=== PATIENT | male | born 1950 | race Caucasian/White ===

== ENCOUNTER → 2017-01-18 | Outpatient (CLI) | payer OTHER ==
--- NOTE | 2017-01-18 12:37 | RADIOLOGY REPORT (SQ) ---
EXAM DESCRIPTION: VENOUS UNILATERAL LOWER COMPLETED DATE/TIME: 01/18/2017 12:30 pm REASON FOR STUDY: PAIN RLE R60.9 EDEMA, UNSPECIFIED COMPARISON: None. TECHNIQUE: Dynamic and static broussard scale and color images acquired of the right leg venous system. S elected spectral images acquired with additional compression and augmentation maneuvers. The contrala teral common femoral vein and saphenofemoral junction were also imaged. Images stored on PACS. LIMITATIONS: None. FINDINGS: COMMON FEMORAL: Normal phasicity, compression and augmentation. No visualized echogenic ma terial on broussard scale. No defects on color images. FEMORAL: Normal compression and augmentation. No visualized echogenic material on broussard scale. No defe cts on color images. POPLITEAL: Normal compression, augmentation. No visualized echogenic material on broussard scale. No defec ts on color images. CALF VESSELS: Normal compression, augmentation. No visualized echogenic material on broussard scale. No de fects on color images. GSV and SSV: Normal compression, augmentation. No visualized echogenic material on broussard scale. No def ects on color images. ANY DEEP VENOUS INSUFFICIENCY: Not evaluated. ANY EVIDENCE OF POPLITEAL CYST: No. OTHER: No other significant finding. CONTRALATERAL COMMON FEMORAL VEIN AND SAPHENOFEMORAL JUNCTION: Normal phasicity, compression and augmentation. No visualized echogenic material on broussard scale. No de fects on color images. IMPRESSION: NO EVIDENCE OF DVT OR SVT IN THE RIGHT LEG. TECHNICAL DOCUMENTATION: JOB ID: [id number] [employer]- All Rights Reserved
== END ==
LOC: SP 11:25
PROVIDERS: ATTEND Family Medicine
DX: M79.89 Other specified soft tissue disorders (principal); M79.604 Pain in right leg
CPT/HCPCS: 93971

== ENCOUNTER → 2017-02-05 | Outpatient (CLI) | payer OTHER ==
[2017-02-05 17:01] LABS: ANION GAP 15 (5-19); BLOOD UREA NITROGEN 35 mg/dL (7-20); CALCIUM 9.9 mg/dL (8.4-10.2); CARBON DIOXIDE 24 mmol/L (22-30); CHLORIDE 100 mmol/L (98-107); GLUCOSE 132 mg/dL (75-110); POTASSIUM 5.4 mmol/L (3.6-5.0); SODIUM 138.6 mmol/L (137-145)
== END ==
LOC: OD 15:51
PROVIDERS: ATTEND Physician Assistant
DX: E87.5 Hyperkalemia (principal)
CPT/HCPCS: 36415; 80048

== ENCOUNTER → 2018-12-03 | Outpatient (CLI) | payer OTHER, MEDICARE ==
--- NOTE | 2018-12-03 13:27 | RADIOLOGY REPORT (SQ) ---
EXAM DESCRIPTION: CHEST PA/LATERAL COMPLETED DATE/TIME: 12/03/2018 12:47 pm REASON FOR STUDY: LEUKOCYTOSIS COMPARISON: 04/26/2010 EXAM PARAMETERS: NUMBER OF VIEWS: two views TECHNIQUE: Digital Frontal and Lateral radiographic views of the chest acquired. RADIATION DOSE: NA LIMITATIONS: none FINDINGS: LUNGS AND PLEURA: No opacities, masses or pneumothorax. No pleural effusion. Unchanged mi ld elevation of the right hemidiaphragm. MEDIASTINUM AND HILAR STRUCTURES: No masses or contour abnormalities. HEART AND VASCULAR STRUCTURES: Heart normal size. No evidence for failure. Aortic atherosclerosis. BONES: No acute findings. HARDWARE: None in the chest. OTHER: No other significant finding. IMPRESSION: No focal consolidation or other evidence of acute cardiopulmonary process. TECHNICAL DOCUMENTATION: JOB ID: [id number] [employer]- All Rights Reserved Reading location - IP/workstation name: [email or web address]
== END ==
LOC: OD 12:34
PROVIDERS: ATTEND Family Medicine
DX: D72.829 Elevated white blood cell count, unspecified (principal)
CPT/HCPCS: 71046

== ENCOUNTER → 2018-12-11 | Outpatient (CLI) | payer MEDICARE, OTHER ==
--- NOTE | 2018-12-11 10:06 | RADIOLOGY REPORT (SQ) ---
EXAM DESCRIPTION: U/S ABDOMEN LIMITED W/O DOP COMPLETED DATE/TIME: 12/11/2018 7:48 am REASON FOR STUDY: OTHER CHRONIC PANCREATITIS (K86.1), ABN RESULTS OF LIVER FUNCTION STUDIES ( K86.1 OTHER CHRONIC PANCREATITIS R94.5 ABNORMAL RESULTS OF LIVER FUNCTION STUDIES COMPARISON: None. TECHNIQUE: Dynamic and static grayscale images acquired of the abdomen and recorded on PACS. Additio nal selected color Doppler and spectral images recorded. LIMITATIONS: None. FINDINGS: PANCREAS: Midline pancreas unremarkable LIVER: No masses. Echotexture normal. LIVER VASCULATURE: Normal directional flow of the main portal vein and hepatic veins. GALLBLADDER: Adenomyosis along the gallbladder wall. Gallbladder wall thickening along the fundus. Tiny shadowing stones are present. No gallbladder wall thickening or pericholecystic fluid. ULTRASOUND-DETECTED RHODES'S SIGN: Negative. INTRAHEPATIC DUCTS AND COMMON DUCT: CBD and intrahepatic ducts normal caliber. No filling defects. INFERIOR VENA CAVA: Normal flow. AORTA: No aneurysm. RIGHT KIDNEY: 9 x 7.5 cm mass right upper pole kidney worrisome for renal cell carcinoma. No right renal stones. No hydronephrosis PERITONEAL AND RIGHT PLEURAL SPACE: No ascites or effusions. OTHER: No other significant findings. IMPRESSION: Right renal mass 9 x 7.5 cm worrisome for renal cell carcinoma Gallbladder Adenomyosis and stones in the gallbladder, no gallbladder wall thickening or pericholecys tic fluid. TECHNICAL DOCUMENTATION: JOB ID: [id number] [employer]- All Rights Reserved Reading location - IP/workstation name: [email or web address]
--- NOTE | 2018-12-11 15:20 | RADIOLOGY REPORT (SQ) ---
EXAM DESCRIPTION: CT ABD/PELVIS WITH IV ONLY COMPLETED DATE/TIME: 12/11/2018 2:55 pm REASON FOR STUDY: N28.89 OTHER SPECIFIED DISORDERS OF KIDNEY AND URETER K86.1 OTHER CHRONIC PANCREA TITIS R94.5 ABNORMAL RESULTS OF LIVER FUNCTION STUDIES N28.89 OTHER SPECIFIED DISORDERS OF KIDNEY A ND URETER COMPARISON: Abdominal ultrasound 12/11/2018 Renal ultrasound 11/16/2015 TECHNIQUE: CT scan of the abdomen and pelvis performed using helical scanning technique with dynamic intravenous contrast injection. No oral contrast. Images reviewed with lung, soft tissue, and bone windows. Reconstructed coronal and sagittal MPR images reviewed. Delayed images for evaluation of the urinary system also acquired. All images stored on PACS. All CT scanners at this facility use dose modulation, iterative reconstruction, and/or weight based d osing when appropriate to reduce radiation dose to as low as reasonably achievable (ALARA). [facility]: Dose Right [facility]: CareDose [facility]: Dose Right [facility]: Teradose 4D [facility]: [place] CONTRAST TYPE AND DOSE: 100 mL of IV Omnipaque 350- low osmolar. RENAL FUNCTION: Creatinine 1.2 RADIATION DOSE: CT Rad equipment meets quality standard of care and radiation dose reduction techniq ues were employed. CTDIvol: 19.8 - 22.1 mGy. DLP: 2231 mGy-cm.. LIMITATIONS: None. FINDINGS: LOWER CHEST: No significant findings. No nodules or infiltrates. LIVER: Normal size. No masses. No dilated ducts. SPLEEN: Normal size. No focal lesions. PANCREAS: There is mild peripancreatic inflammation on axial images 29 through 38, findings are worri some for pancreatitis. Findings discussed with Dr. Drake. No pancreatic mass. No peripancreatic fl uid collection. There is air at the ampulla. Trace air in the gallbladder. Question prior sphincte rotomy. GALLBLADDER: Trace air in the gallbladder fundus. No radiopaque gallstones. No pericholecystic flui d. Common bile duct nondilated ADRENAL GLANDS: No significant masses or asymmetry. RIGHT KIDNEY AND URETER: 9 x 7 cm solid enhancing mass upper pole right kidney worrisome for renal ce ll neoplasm. No significant calcifications. No hydronephrosis or hydroureter. LEFT KIDNEY AND URETER: 3.7 cm solid mass left upper pole kidney worrisome for renal cell neoplasm. 4 cm solid mass, posterior midpole left kidney worrisome for renal cell neoplasm. 2 cm cyst left low er pole kidney. No significant calcifications. No hydronephrosis or hydroureter. AORTA AND VESSELS: No aneurysm. No dissection. Renal arteries, SMA, celiac without stenosis. RETROPERITONEUM: No retroperitoneal adenopathy, hemorrhage or masses. BOWEL AND PERITONEAL CAVITY: No masses or inflammatory changes. No free fluid or peritoneal masses. APPENDIX: Normal. PELVIS: No mass. No free fluid. Normal bladder. ABDOMINAL WALL: No masses. No hernias. BONES: No significant or acute findings. OTHER: No other significant finding. IMPRESSION: Acute uncomplicated pancreatitis Trace air in the biliary tree, question prior biliary intervention/ERCP. Otherwise, cholangitis is p ossible. Findings discussed with Dr. Drake. Bilateral multiple solid renal masses worrisome for renal cell carcinoma TECHNICAL DOCUMENTATION: JOB ID: [id number] Quality ID # [id number]: Final reports with documentation of one or more dose reduction techniques (e.g., Au tomated exposure control, adjustment of the mA and/or kV according to patient size, use of iterative reconstruction technique) 2010 [employer]- All Rights Reserved Reading location - IP/workstation name: CHAR FILTER OPERATOR [email or web address]
== END ==
LOC: RAD 06:42
PROVIDERS: ATTEND Family Medicine
DX: K85.10 Biliary acute pancreatitis without necrosis or infection (principal); N28.89 Other specified disorders of kidney and ureter; R94.5 Abnormal results of liver function studies
CPT/HCPCS: 74177; 76705

== ENCOUNTER 2019-06-25 02:42 | Inpatient (IN) | payer OTHER, MEDICARE ==
--- NOTE | 2019-06-25 03:01 | ER Document Report ---
ED Neuro Symptoms/Deficit - General Chief Complaint: S/S of Possible Stroke Stated Complaint: POSSIBLE STROKE Time Seen by Provider: 06/25/19 02:57 Primary Care Provider: JIN DRAKE MD [Primary Care Provider] - Follow up as needed Mode of Arrival: Ambulatory Information source: Patient Notes: 68-year-old man presents to the emergency department with a history of left arm tingling discoordination which was noted when he awoke at approximately 1 AM this morning. Last known well was approximately 10 PM last night 06/25/2019, when his last saw him. Patient states that he attempted to get up and lost his balance because of the arm symptoms, he fell onto his left knee. He now complains of a tingling in his left arm with questionable weakness. He denies leg weakness or tingling. He complains of left facial tingling and poor control of the left arm. TRAVEL OUTSIDE OF THE [place] IN LAST 30 DAYS: No - Related Data Allergies/Adverse Reactions: No Known Allergies Allergy (Unverified 06/25/19 03:30) Past Medical History - Social History Smoking Status: Unknown if Ever Smoked Family History: Reviewed & Not Pertinent Review of Systems - Review of Systems Notes: Constitutional: Negative for fever. HENT: Negative for sore throat. Eyes: Negative for visual changes. Cardiovascular: Negative for chest pain. Respiratory: Negative for shortness of breath. Gastrointestinal: Negative for abdominal pain, vomiting or diarrhea. Genitourinary: Negative for dysuria. Musculoskeletal: Negative for back pain. Skin: Negative for rash. Neurological: + Left arm tingling, + left facial tingling 10 point ROS negative except as marked above and in HPI. Physical Exam - Notes Notes: PHYSICAL EXAMINATION: Physical Exam: General: Well-nourished well-developed in no acute distress HEENT: NC/AT, pupils equal round and reactive to light, MM moist,nares clear, oropharynx clear, airway patent Neck: supple, no adenopathy, no masses. Good range of motion Lungs: clear, no wheezing, no rales no rhonchi CVS: Regular rate and rhythm no murmur gallop or rub Abdomen: Soft, active, nontender, no masses, no hepatosplenomegaly Ext: No edema, clubbing or cyanosis. Neuro: Alert and responsive, moving all 4 extremities on command, cranial nerves intact, no focal weakness, decreased sensation left upper extremity, discoordinated movement left arm, positive poor [id number] function involving the left arm. + Increased left nasolabial fold mild Skin: Intact no open lesions, no rash PSYCH: Normal mood, normal affect. Course - Re-evaluation Re-evalutation: 06/25/19 05:24 68-year-old man who presents with wake-up stroke symptoms, apparently last known well 10 PM, 06/25/2019. He is outside the window for TPA treatment. CTA of the head and neck are ordered, I have spoken with the neurology service at [facility] they have agreed to accept the patient in transfer after the study has been done. Patient states that he would like to go to [facility] in [place], apparently his daughter works at the [employer] there. Contacted the neurologist television journalist Dr. Stinson, he will reviewed the head CT and a CTA of the head and neck, will then make a decision as to if he can accept the patient in transfer. Initial blood pressure was elevated however, it has come down without intervention. Patient takes lisinopril 40 mg twice daily, carvedilol 12.5 mg tw ice daily. 06/25/19 05:50 Dr. Stinson neurology at [facility] has reviewed the CTA and notes there are no large vessel occlusions therefore the patient does not meet criteria for transfer. I will discussed his findings with the patient and will admit him to [facility] for further management. 06/25/19 06:12 Dr. Drake was contacted, states that he will admit the patient to the hospital. He is requesting that an MRI be ordered. - Laboratory Result Diagrams: 06/25/19 02:57 06/25/19 02:57 - Diagnostic Test Radiology reviewed: Image reviewed, Reports reviewed - Chest x-ray: Heart size normal, mild artheromatous changes in the thoracic aorta, no pneumothorax. CT head noncontrast: No intra-cranial hemorrhage, no prior CVA. - EKG Interpretation by Ks EKG shows normal: Sinus rhythm - Rate 69, LVH with IVCD, repolarization abnormality, no acute ST or T wave abnormalities. ED Alteplase Inc/Exc Criteria - Date/Time patient last known well: Date/Time: 06/24/2019 22:00 - Date/Time patient arrived in ED: _: 06/25/2019 02:38 - Inclusion Criteria: 1: Patient presented to ED within 3 hours of acute ischemic stroke symptom ons et? -: No - This is a wake-up stroke, outside the window for TPA 2: Did baseline CT exclude intracranial hemorrhage and/or other risk factors? 3: Is the age of the patient 18 years of age or greater? : If any of the above questions are answered "NO" then stop, patient is not a candidate for Alteplase, : If all of the above questions are answered "YES" then continue with Exclusion Criteria. - Exclusion Criteria: 1: Is there evidence of intracranial hemorrhage on baseline CT? 2: Is there suspicion of subarachnoid hemorrhage (even if CT negative)? 3: Is there a history of serious head trauma, recent previous stroke or IL within 3 months? 4: Does the patient have a clinical presentation consistent with IL or post-IL pericarditis? 5: Is there history of intracranial hemorrhage? 6: On repeated measurement is Systolic BP greater than 185mmHg or Diastolic BP greater that 110 mmHg and is aggressive treatment needed to reduce blood pressure to these limits (e.g. constant infusion of an anti-hypertensive)? 7: Did the patient awake with stroke symptoms? 8: Has the patient had a lumbar puncture or an arterial puncture at a non- compressile site within 7 days? 9: With in the last 14 days did the patient have surgery or major trauma? 10: Is the patient or less than 2 weeks? 11: Was there any active bleeding or acute trauma? 12: Does the patient have intracranial neoplasm, arteriovenous malformation or aneurysm? 13: Does the patient have abnormal glucose (less than 50 or greater than 400mg/dl)? Record glucose in Comment. 14: Patient has rapidly improving symptoms at the time Alteplase is to be Administered. 15: Does the patient have any risks for bleeding, including but not limited to: a.: Current use of Coumadin with PT greater than 15 seconds or INR greater than 1.7. b.: Current use of Pradaxa (Dabigatran). c.: Heparin administereed within the past 48 hours and PTT elevated. d.: Platelet count less than 100,000/mm. e.: Major surgery or serious trauma within 14 days. f.: Gastrointestinal or gynecological urinary bleeding within 14 days. g.: Myocardial Infarction (IL) within 3 months. : If the answer to any of the above questions is "YES" then stop, the patient is not a candidate for Alteplase. : If the answer to all of the above questions is "NO" then the patient may be eligible for the Administration of Alteplase. : If the patient is noted to have seizure activity at onset of Stroke symptoms; Consult Neurologist for further evaluation. - The patient is: -: Included and is eligible to receive Alteplase. *Initiate bed placement at higher level of care* Reviewed risks & benefits of thrombolytic therapy: I have reviewed the risks and benefits of thrombolytic therapy with the patient and/or his/her family. -: Excluded and not eligible to receive Alteplase for the above exclusions. -: Excluded and not eligible to receive Alteplase for other reasons (specify in comments): - Diagnosis of TIA: -: Patient presented with transient symptoms that are now resolved and no other neurologic findings are currently present. List symptoms in comments. -: Patient is NOT a candidate for tPA. -: ____(put name in comment) has been consulted for admission and continued evaluation of risk factor assessment. ED NIH Stroke Scale - NIH Stroke Scale When completed:: Before Alteplase *: 1. NIH scale should be completed with appropriate accompanying assessment tools. *: 2. The NIH should reflect what the patient is capable of doing and should not be coached by the clinician. 1a. Level of Consciousness: 0=Alert;keenly responsive -: 1=Drowsy -: 2=Obtunded -: 3=Coma/unresponsive or reflex to noxious stimuli. 1a. Responses: 0 1b. Orientation Questions: a. What month is it? -: b. How old are you? -: 0=Answers both questions correctly. -: 1=Answers one question correctly or patient is intubated or has orotracheal trauma. -: 2=Answers neither question correctly. 1b. Responses: 0 1c. Response to commands: a. Open and close eyes? -: b. Lab Tester and release hand? -: Credit is given despite weakness. Demonstration of task is permitted. Substitute command if hands cannot be used. -: 0=Performs both tasks correctly -: 1=Performs one task correctly -: 2=Performs neither task correctly 1c. Responses: 0 2. Gaze: Establish eye contact and instruct patient to "Follow my finger" -: 0=Normal -: 1=Partial gaze palsy. Gaze is abnormal in one or both eyes, but where forced deviation or total gaze paresis is not present. -: 2=Forced deviation or total gaze paresis. 2. Responses: 0 3. Visual Blackmon: Sees fingers in all four quadrants. -: 0=No visual loss. -: 1=Partial hemianopsia. -: 2=Complete hemianopsia. -: 3=Bilateral hemianopsia (including Cortical blindness) 3. Responses: 0 4. Facial Movement: Instruct patient to: -: a. Show me your teeth -: b. Raise your eyebrows -: c. Close your eyes -: d. Smile -: 0=Normal symmetrical movement -: 1=Minor paralysis (flattened nasolabial fold, asymmetry on smiling). -: 2=Partial paralysis (total or near total paralysis of lower face). -: 3=Complete paralysis of upper and lower face 4. Responses: 1 5. Motor functions (left arm): Alternate sides and extend each arm with palms down (90 degrees if sitting or 45 degrees for supine). -: 0=No drift;limb holds for full 10 seconds. -: 1=Drift; limb holds but drifts down before full 10 seconds, but does not hit bed. -: 2=Some effort against gravity; limb cannot get to or maintain position. -: 3=No effort against gravity; limb falls. -: 4=No movement. -: UN=Amputation, joint fusion, explain in comments. 5. Responses (left arm): 0 5. Motor Functions (right arm): Alternate sides and extend each arm with palms down (90 degrees if sitting or 45 degrees for supine). -: 0=No drift;limb holds for full 10 seconds. -: 1=Drift; limb holds but drifts down before full 10 seconds, but does not hit bed. -: 2=Some effort against gravity; limb cannot get to or maintain position. -: 3=No effort against gravity; limb falls. -: 4=No movement. -: UN=Amputation, joint fusion, explain in comments. 5. Responses (right arm): 0 6. Motor Functions (left leg): With patient lying supine, alternate sides and extend each leg (30 degrees always while supine). -: 0=No drift, leg holds position for full 5 seconds -: 1=Drift; leg falls before full 5 seconds but does not hit bed. -: 2=Some effort against gravity, leg falls to bed but some effort against gravity. -: 3=No effort against gravity, leg falls to bed immediately. -: 4=No movement. -: UN=Amputation, joint fusion; explain in comments. 6. Responses (left leg): 0 6. Motor Functions (right leg): With patient lying supine, alternate sides and extend each leg (30 degrees always while supine). -: 0=No drift, leg holds position for full 5 seconds -: 1=Drift; leg falls before full 5 seconds but does not hit bed. -: 2=Some effort against gravity, leg falls to bed but some effort against gravity. -: 3=No effort against gravity, leg falls to bed immediately. -: 4=No movement. -: UN=Amputation, joint fusion; explain in comments. 6. Responses (right leg): 0 7. Limb Ataxia: With eyes open instruct patient to: -: a. "Touch your finger to your nose". -: b. "Touch your heel to your vargas" -: 0=Absent -: 1=Present in one limb. -: 2=Present in two limbs. -: UN=Amputation or joint fusion; explain in comments. 7. Responses: 1 7. If ataxia present choose as appropriate: Left arm 8. Sensory: Test sensation using pinprick or noxious stimuli. Test as many body parts as possible. -: 0=Normal;no sensory loss -: 1=Mile to moderate sensory loss (patient feels pin prick but is less sharp on affected side). -: 2=Severe or total sensory loss. 8. Responses: 1 9. Best Language: Instruct patient to: -: a. "Describe what you see in this picture." -: b. "Name the items in this picture." -: c. "Read these sentences." -: 0=No aphasia, normal -: 1=Mild to moderate aphasia. -: 2=Severe aphasia -: 3=Mute, global aphasia, no usable speech or auditory comprehension. 9. Responses: 0 10. Articulation, Dysarthia: Instruct patient to: -: "Read these words" or "Repeat these words" -: 0=Normal -: 1=Mild to moderate; patient may slur some words but can be understood without difficulty. -: 2=Severe; patients speech so slurred as to be unintelligible in the absence of dysphasia. -: UN=Intubated or other physical barrier, explain in comments. 10. Responses: 0 11. Extinction or inattention: 0=No abnormality -: 1= Visual, tactile, auditory, spatial, or personal inattention or extinction to bilateral simulation in one or the sensory modalities. -: 2=Profound giovanni-inattention or giovanni-inattention to more than one modality; does not recognize own hand. 11. Responses: 0 Total Score: 3 Notes: Patient has very mild left nasolabial fold increased/tingling in the left side face. Discharge - Discharge Clinical Impression: Acute CVA (cerebrovascular accident), Poorly controlled diabetes mellitus Hypertension Qualifiers: Hypertension type: unspecified Qualified Code(s): I10 - Essential (primary) hypertension Condition: Good Disposition: ADMITTED INPATIENT Admitting Provider: [facility] Admitted: [facility] Referrals: JIN DRAKE MD [Primary Care Provider] - Follow up as needed
--- NOTE | 2019-06-25 03:15 | RADIOLOGY REPORT (SQ) ---
EXAM DESCRIPTION: CT of the head without contrast CLINICAL HISTORY: LEFT SIDE WEAKNESS COMPARISON: None available TECHNIQUE: Axial CT of the head obtained from the skull apex to the skull base without contrast. FINDINGS: No acute intracranial hemorrhage identified. No mass, mass effect, shift of the midline, abnormal extra-axial fluid collection or CT evidence of acute ischemic change identified. The ventricular system and sulcal spaces are not enlarged. Scattered areas of hypodensity throughout the supratentorial white matter are nonspecific and may be related to chronic small vessel ischemic change. Complete opacification of the right maxillary sinus. Mild mucosal thickening of the left maxillary sinus. Mastoid air cells are well aerated. No skull fracture identified. Visualized orbits and globes are unremarkable. Atherosclerotic calcification of the intracranial internal carotid arteries. IMPRESSION: 1. No acute intracranial abnormality by CT criteria. This exam was performed according to our departmental dose-optimization program, which includes automated exposure control, adjustment of the mA and/or kV according to patient size and/or use of iterative reconstruction technique.
--- NOTE | 2019-06-25 03:18 | RADIOLOGY REPORT (SQ) ---
EXAM DESCRIPTION: XR CHEST 1 VIEW COMPLETED DATE/TME: 06/25/2019 00:00 CLINICAL HISTORY: 68 years, Male, LEFT SIDE WEAKNESS COMPARISON: 12/03/2018 chest NUMBER OF VIEWS: 1 TECHNIQUE: Portable chest LIMITATIONS: None. FINDINGS: Heart size is normal. Mild atheromatous change thoracic aorta. Lungs clear. No pneumothorax IMPRESSION: No acute cardiopulmonary process copyright 2010 [employer]- All Rights Reserved
[2019-06-25 03:22] LABS: ABSOLUTE BASOPHILS # (AUTO) 0.1 10^3/uL (0.0-0.2); ABSOLUTE EOSINOPHILS # (AUTO) 0.2 10^3/uL (0.0-0.6); ABSOLUTE LYMPHOCYTES (AUTO) 0.9 10^3/uL (0.5-4.7); ABSOLUTE MONOCYTES (AUTO) 0.7 10^3/uL (0.1-1.4); ABSOLUTE NEUT (AUTO) 8.1 10^3/uL (1.7-8.2); BASOPHILS % (AUTO) 0.9 % (0-2); EOSINOPHILS % (AUTO) 2.2 % (0-6); HEMATOCRIT 38.3 % (37.9-51.0); HEMOGLOBIN 13.7 g/dL (13.5-17.0); LYMPHOCYTES % (AUTO) 8.6 % (13-45); MEAN CORPUSCULAR HEMOGLOBIN 30.4 pg (27.0-33.4); MEAN CORPUSCULAR HGB CONC 35.8 g/dL (32.0-36.0); MEAN CORPUSCULAR VOLUME 85 fl (80-97); MONOCYTES % (AUTO) 6.8 % (3-13); PLATELET COUNT 179 10^3/uL (150-450); RED BLOOD COUNT 4.51 10^6/uL (4.35-5.55); SEGMENTED NEUTROPHILS % (AUTO) 81.5 % (42-78); TOTAL CELLS COUNTED % (AUTO) 100 %
[2019-06-25 03:31] LABS: PROTHROMBIN TIME 12.4 SEC (11.4-15.4)
[2019-06-25 03:32] LABS: INTERNATIONAL RATION (INR) 0.93; PARTIAL THROMBOPLASTIN TIME 26.7 SEC (23.5-35.8)
[2019-06-25] MEDS ORDERED: LABETALOL HCL INJ 20 MG/4 ML DISP.SYRIN IV ONE ×2 (03:34→04:06)
[2019-06-25] MEDS ORDERED: ALTEPLASE INJ 100 MG VIAL IV ONE ×2 (03:42→03:49)
[2019-06-25 03:49] LABS: ALBUMIN 4.6 g/dL (3.5-5.0); ALKALINE PHOSPHATASE 108 U/L (38-126); ANION GAP 10 (5-19); ASPARTATE AMINO TRANSFERASE 26 U/L (17-59); BILIRUBIN,TOTAL 0.5 mg/dL (0.2-1.3); BLOOD UREA NITROGEN 34 mg/dL (7-20); CALCIUM 9.8 mg/dL (8.4-10.2); CARBON DIOXIDE 29 mmol/L (22-30); CHLORIDE 95 mmol/L (98-107); CREATINE KINASE 72 U/L (55-170); GLUCOSE 365 mg/dL (75-110); POTASSIUM 4.9 mmol/L (3.6-5.0); TOTAL PROTEIN 8.1 g/dL (6.3-8.2)
[2019-06-25 03:58] LABS: CREATINE KINASE MB 1.78 ng/mL (<4.55)
[2019-06-25 03:59] LABS: TROPONIN I < 0.012 ng/mL
[2019-06-25] MEDS ORDERED: ASPIRIN 325 MG TABLET PO ONE (05:30)
[2019-06-25] MEDS ORDERED: LISINOPRIL 10 MG TABLET PO ONE (05:30)
[2019-06-25] MEDS ORDERED: CARVEDILOL 12.5 MG TABLET PO ONE (05:31)
--- NOTE | 2019-06-25 05:44 | RADIOLOGY REPORT (SQ) ---
CTA head and neck: Technique: Postcontrast imaging was obtained through the head and neck after intravenous contrast is administered utilizing a CTA protocol. MIP reconstructed sagittal and coronal images were also obtained. NASCET Criteria was utilized for evaluation of potential vascular stenosis in the neck. This exam was performed according to our departmental dose-optimization program, which includes automated exposure control, adjustment of the mA and/or KV according to the patient's size and/or use of iterative reconstruction technique. COMPARISON: None available HISTORY: 58-year-old patient with concern for an acute stroke. FINDINGS: CTA HEAD: There is almost complete opacification of the right maxillary sinus and partial opacification of the left maxillary and bilateral ethmoid sinuses. The right posterior communicating artery is not well visualized. The left A1 segment is very small in size. No discrete filling defect is seen within the middle, anterior, and posterior cerebral arteries. The visualized vertebral arteries appear unremarkable. The carotid arteries appear to be well opacified. No obvious aneurysm or stenosis is readily apparent. The basilar artery and visualized portions of the posterior circulation appear unremarkable. CTA NECK: There is normal three-vessel aortic arch morphology. The brachiocephalic and proximal subclavian arteries are patent and normal in course and caliber. The common carotid arteries, carotid bulbs and proximal external carotid arteries are patent and normal in course and caliber. There is mild to moderate atherosclerotic calcification seen at the carotid bulbs. The cervical segments of the internal carotid arteries are patent and normal in course and caliber. There is a codominant vertebral arterial system. The vertebral arteries are patent and normal in course and caliber. IMPRESSION: No discrete filling defect, aneurysm, or obvious stenosis is seen within the anterior or posterior intracranial circulation. There are no findings to suggest a hemodynamically significant stenosis of the carotid arteries. There is persistent concern for an acute stroke, MRI imaging using weighted sequences should be considered.
[2019-06-25] MEDS ORDERED: INSULIN REG, HUMAN 100 UNIT/ML 3 ML VIAL (PYX) IV ONE (05:57)
[2019-06-25] MEDS ORDERED: ACETAMINOPHEN 325 MG TABLET PO PRN (06:14)
[2019-06-25] MEDS ORDERED: DEXTROSE 40% GEL 15 GM TUBE PO PRN ×2 (06:24)
[2019-06-25] MEDS ORDERED: GLUCAGON,HUMAN RECOMB 1 MG INJ IM PRN (06:24)
[2019-06-25] MEDS ORDERED: DEXTROSE 50%-WATER 25 GM/50 ML DISP.SYRIN IV PRN ×2 (06:24)
--- NOTE | 2019-06-25 07:13 | EKG REPORT ---
SEVERITY:- ABNORMAL ECG - SINUS RHYTHM MULTIPLE ATRIAL PREMATURE COMPLEXES LVH WITH IVCD, LAD AND SECONDARY REPOL ABNRM LAFB : Confirmed by: Andrea Vera MD 25-Jun-2019 07:13:02
--- NOTE | 2019-06-25 07:15 | EKG REPORT ---
SEVERITY:- ABNORMAL ECG - SINUS RHYTHM LVH WITH IVCD, LAD AND SECONDARY REPOL ABNRM : Confirmed by: Andrea Vera MD 25-Jun-2019 07:13:26
[2019-06-25 08:10] LABS: CREATINE KINASE MB 2.27 ng/mL (<4.55)
[2019-06-25 08:12] LABS: TROPONIN I < 0.012 ng/mL
--- NOTE | 2019-06-25 08:37 | RADIOLOGY REPORT (SQ) ---
EXAM DESCRIPTION: MRI HEAD WITHOUT IMAGES COMPLETED DATE/TIME: 06/25/2019 8:10 am REASON FOR STUDY: stroke COMPARISON: None. TECHNIQUE: Multiplanar imaging includes non-contrasted T1, T2, FLAIR, and diffusion with ADC map seq uences. Images stored on PACS. LIMITATIONS: None. FINDINGS: ANATOMY: No anomalies. Normal vascular flow voids. Pituitary fossa normal. CSF SPACES: Normal in size and contour. No hemorrhage. CEREBRUM: Sulci and gyri normal in size and contour. Approximately 1.5 cm oval focus of high signal on diffusion in the right thalamus. Corresponding low signal on ADC map. Corresponding low signal o n ADC map. No evidence of hemorrhage, mass, or extraaxial fluid collection. POSTERIOR FOSSA: No signal alteration. No hemorrhage. No edema, masses or mass effect. Internal daniel tory canals, cerebello-pontine angles, mastoids normal. DIFFUSION IMAGING: See above. ORBITS: No masses. Globes normal. PARANASAL SINUSES: No fluid levels. Mucosa normal. OTHER: No other significant finding. IMPRESSION: Acute, nonhemorrhagic lacunar infarct right thalamus. EVIDENCE OF ACUTE STROKE: YES. 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
[2019-06-25] MEDS: INSULIN LISPRO 100 UNIT/ML 3 ML VIAL SUBCUT SCH ×4 (08:51→21:20)
--- NOTE | 2019-06-25 09:17 | PDOC H&P ---
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 Stinson at [facility] to transfer the patient but according to the Dr. Stinson patient does not need any transfer patient is pretty much symptom is stable except the left upper extremity weakness According to the patient last 1 or 2 days patient is feeling this numbness and patient's a little bit balance issues this morning and feels like patient's left upper extremity slightly sleepy Patient is denied any chest pain no short of breath Patient seen by Dr. Parkinson recently have a echo and carotid Doppler was done was all stable Patient's MRI consistent with acute right thalamic lacunar infarct Past Medical History Cardiac Medical History: Reports: Hyperlipidema, Hypertension Denies: Atrial Fibrillation, Congestive Heart Failure, Myocardial Infarction Pulmonary Medical History: Denies: Asthma, Bronchitis, Chronic Obstructive Pulmonary Disease (COPD), Pneumonia, Tuberculosis Neurological Medical History: Denies: Migraine, Seizures Endocrine Medical History: Reports: Diabetes Mellitus Type 2 Denies: Diabetes Mellitus Type 1 Renal/ Medical History: Reports: Chronic Kidney Disease Denies: End Stage Renal Disease GI Medical History: Reports: Gastroesophageal Reflux Disease Denies: Hiatal Hernia Musculoskeltal Medical History: Denies: Arthritis Psychiatric Medical History: Denies: Attention Deficit Hyperactivity Disorder, Bipolar Disorder, Depression Hematology: Denies: Anemia, Sickle Cell Disease Past Surgical History Past Surgical History: Reports: Other - rt nephroectomy Social History Information Source: Patient Smoking Status: Unknown if Ever Smoked Electronic Cigarette use?: No Frequency of Alcohol Use: Social Hx Recreational Drug Use: No Hx Prescription Drug Abuse: No Family History Family History: Reviewed & Not Pertinent Parental Family History Reviewed: Yes Children Family History Reviewed: Yes Sibling(s) Family History Reviewed.: Yes Medication/Allergy Home Medications: Aspirin [Ecotrin 81 mg EC Tablet] 81 mg PO DAILY 06/25/19 Atorvastatin Calcium [Lipitor 20 mg Tablet] 20 mg PO QHS 06/25/19 Carvedilol [Coreg 12.5 mg Tablet] 12.5 mg PO Q12 06/25/19 Empagliflozin [Jardiance] 10 mg PO DAILY 06/25/19 Ferrous Sulfate [Feosol 325 mg Tablet] 325 mg PO DAILY 06/25/19 Furosemide [Lasix 20 mg Tablet] 20 mg PO MOTUWETHFR@1000 06/25/19 Glipizide [Glucotrol 5 mg Tablet] 5 mg PO BID 06/25/19 Levothyroxine Sodium [Synthroid] 200 mg PO Q6AM 06/25/19 Lisinopril [Zestril] 40 mg PO DAILY 06/25/19 Sitagliptin Phosphate [Januvia 50 mg Tablet] 100 mg PO DAILY 06/25/19 Allergies/Adverse Reactions: No Known Allergies Allergy (Unverified 06/25/19 03:30) Review of Systems Constitutional: ABSENT: chills, fever(s), headache(s), weight gain, weight loss Eyes: ABSENT: visual disturbances Ears: ABSENT: hearing changes Cardiovascular: ABSENT: chest pain, dyspnea on exertion, edema, orthropnea, palpitations Respiratory: ABSENT: cough, hemoptysis Gastrointestinal: ABSENT: abdominal pain, constipation, diarrhea, hematemesis, hematochezia, nausea, vomiting Genitourinary: ABSENT: dysuria, hematuria Musculoskeletal: ABSENT: joint swelling Integumentary: ABSENT: rash, wounds Neurological: PRESENT: numbness, weakness. ABSENT: abnormal gait, abnormal speech, confusion, dizziness, focal weakness, syncope Psychiatric: ABSENT: anxiety, depression, homidical ideation, suicidal ideation Endocrine: ABSENT: cold intolerance, heat intolerance, menstrual abnormalities, polydipsia, polyuria Hematologic/Lymphatic: ABSENT: easy bleeding, easy bruising, lymphadenopathy Physical Exam Vital Signs: Temp Pulse Resp BP Pulse Ox 98.6 F 65 18 165/61 H 97 06/25/19 08:28 06/25/19 08:28 06/25/19 08:28 06/25/19 08:28 06/25/19 08:28 Intake & Output 06/24/19 06/25/19 06/26/19 06:59 06:59 06:59 Intake Total 200 Output Total 800 Balance -600 Weight 102.058 kg General appearance: PRESENT: no acute distress, well-developed, well-nourished Head exam: PRESENT: atraumatic, normocephalic Eye exam: PRESENT: conjunctiva pink, EOMI, PERRLA. ABSENT: scleral icterus Ear exam: PRESENT: normal external ear exam Mouth exam: PRESENT: moist, tongue midline Neck exam: PRESENT: full ROM. ABSENT: carotid bruit, JVD, lymphadenopathy, thyromegaly Respiratory exam: PRESENT: clear to auscultation corrine Cardiovascular exam: PRESENT: RRR. ABSENT: diastolic murmur, rubs, systolic murmur Pulses: PRESENT: normal dorsalis pedis pul, +2 pedal pulses bilateral Vascular exam: PRESENT: normal capillary refill GI/Abdominal exam: PRESENT: normal bowel sounds, soft. ABSENT: distended, guarding, mass, organolmegaly, rebound, tenderness Rectal exam: PRESENT: deferred Musculoskeletal exam: PRESENT: ambulatory Neurological exam: PRESENT: alert, awake, oriented to person, oriented to place, oriented to time, oriented to situation, CN II-XII grossly intact. ABSENT: motor sensory deficit Additional comments: lt upper ext 4/5 strength Psychiatric exam: PRESENT: appropriate affect, normal mood. ABSENT: homicidal ideation, suicidal ideation Skin exam: PRESENT: dry, intact, warm. ABSENT: cyanosis, rash Results Laboratory Results: 06/25/19 02:57 06/25/19 02:57 06/25/19 06/25/19 02:57 02:57 WBC 10.0 RBC 4.51 Hgb 13.7 Hct 38.3 MCV 85 MCH 30.4 MCHC 35.8 RDW 15.0 H Plt Count 179 Seg Neutrophils % 81.5 H Sodium 133.7 L Potassium 4.9 Chloride 95 L Carbon Dioxide 29 Anion Gap 10 BUN 34 H Creatinine 1.36 H Est GFR ( Amer) > 60 Glucose 365 H Calcium 9.8 Total Bilirubin 0.5 AST 26 Alkaline Phosphatase 108 Total Protein 8.1 Albumin 4.6 06/25/19 06/25/19 06/25/19 02:57 02:57 07:29 Creatine Kinase 72 100 CK-MB (CK-2) 1.78 Troponin I < 0.012 06/25/19 07:29 Creatine Kinase CK-MB (CK-2) 2.27 Troponin I < 0.012 Impressions: Chest X-Ray 06/25/19 00:00 IMPRESSION: No acute cardiopulmonary process copyright 2011 [employer]- All Rights Reserved Head CT 06/25/19 00:00 IMPRESSION: 1. No acute intracranial abnormality by CT criteria. This exam was performed according to our departmental dose-optimization program, which includes automated exposure control, adjustment of the mA and/or kV according to patient size and/or use of iterative reconstruction technique. Head CTA 06/25/19 03:58 IMPRESSION: No discrete filling defect, aneurysm, or obvious stenosis is seen within the anterior or posterior intracranial circulation. There are no findings to suggest a hemodynamically significant stenosis of the carotid arteries. There is persistent concern for an acute stroke, MRI imaging using weighted sequences should be considered. Neck CTA 06/25/19 03:58 IMPRESSION: No discrete filling defect, aneurysm, or obvious stenosis is seen within the anterior or posterior intracranial circulation. There are no findings to suggest a hemodynamically significant stenosis of the carotid arteries. There is persistent concern for an acute stroke, MRI imaging using weighted sequences should be considered. Head MRI 06/25/19 06:12 IMPRESSION: Acute, nonhemorrhagic lacunar infarct right thalamus. EVIDENCE OF ACUTE STROKE: YES. 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 Assessment & Plan - Diagnosis (1) Acute CVA (cerebrovascular accident) Is this a current diagnosis for this admission?: Yes Plan: Patient's MRI consistent with the right lacunar thalamic strokes We will put on the stroke protocol in the hospital start on aspirin Plavix and high-dose statin Patient CT scan of the angiogram is negative for any acute clots will order the echocardiograms will rule out any underlying cardiac erythremia (2) Hypertension Qualifiers: Hypertension type: unspecified Qualified Code(s): I10 - Essential (primary) hypertension Is this a current diagnosis for this admission?: Yes (3) Poorly controlled diabetes mellitus Is this a current diagnosis for this admission?: Yes Plan: We will get the diabetic education's I believe we will start the patient on a insulin at night (4) Hyperlipidemia Qualifiers: Hyperlipidemia type: unspecified Qualified Code(s): E78.5 - Hyperlipidemia, unspecified Is this a current diagnosis for this admission?: Yes Plan: Continues to high-dose statin (5) Renal mass Is this a current diagnosis for this admission?: Yes Plan: Status post right nephrectomy which is a benign finding currently see the urology at [facility] (6) Chronic kidney disease Qualifiers: Chronic kidney disease stage: stage 3 (moderate) Qualified Code(s): N18.3 - Chronic kidney disease, stage 3 (moderate) Is this a current diagnosis for this admission?: Yes Plan: Patient is currently see a Dr. Ruiz - Time Time Spent: 50 to 70 Minutes Medications reviewed and adjusted accordingly: Yes Anticipated discharge: Home with Homehealth Within: Other - Inpatient Certification Based on my medical assessment, after consideration of the patient's comorbidities, presenting symptoms, or acuity I expect that the services needed warrant INPATIENT care.: Yes I certify that my determination is in accordance with my understanding of Medicare's requirements for reasonable and necessary INPATIENT services [42 CFR 412.3e].: Yes Medical Necessity: Significant Comorbidiites Make Outpatient Treatment Too Risky, Need Close Monitoring Due to Risk of Patient Decompensation, Need For Continuous Telemetry Monitoring, Need for Neurological Checks Post Hospital Care: D/C Manager Graphic Documentation - Plan Summary Plan Summary: Admit the patient in IMCU for a stroke protocol ER physician already discussed with the neurology no need to transfer the patient's patient is currently doing well Keep her blood pressures around 150 range Discussed with nursing staff for taking care of the patient will inform the patient's family We will get the echocardiogram consult the patient's cardiology to rule out underlying cardiac arrhythmia
[2019-06-25] MEDS: ASPIRIN 81 MG TABLET, ENT COATED PO SCH (09:45)
[2019-06-25] MEDS: GLIPIZIDE 5 MG TABLET PO SCH ×2 (09:45→17:11)
[2019-06-25] MEDS: CLOPIDOGREL BISULFATE 75 MG TABLET PO SCH (09:45)
[2019-06-25] MEDS: FAMOTIDINE 20 MG TABLET PO SCH ×2 (09:45→21:21)
[2019-06-25] MEDS: SITAGLIPTIN PHOSPHATE 50 MG TABLET PO SCH (09:46)
[2019-06-25] MEDS: ENOXAPARIN SODIUM INJ 40 MG/0.4 ML DISP.SYRIN SUBCUT SCH (09:48)
[2019-06-25] MEDS ORDERED: LISINOPRIL 10 MG TABLET PO SCH (10:00)
[2019-06-25] MEDS ORDERED: (PENDING PHARMACY ID) (Empagliflozin [Jardiance] 10 MG) PO SCH (10:00)
[2019-06-25] MEDS ORDERED: ASPIRIN 81 MG TABLET, ENT COATED PO SCH (10:00)
[2019-06-25] MEDS ORDERED: (PENDING PHARMACY ID) (Lisinopril [Zestril] 40 MG) PO SCH (10:00)
[2019-06-25] MEDS ORDERED: CARVEDILOL 12.5 MG TABLET PO SCH (10:00)
--- NOTE | 2019-06-25 10:11 | PDOC CONSULTATION ---
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 Stinson at [place] to transfer the patient but according to the Dr. Stinson patient does not need any transfer patient is pretty much symptom is stable except the left upper extremity weakness According to the patient last 1 or 2 days patient is feeling this numbness and patient's a little bit balance issues this morning and feels like patient's left upper extremity slightly sleepy. Patient is denied any chest pain no short of breath. Patient seen by Dr. Parkinson recently have a echo and carotid Doppler was done was all stable. Patient's MRI consistent with acute right thalamic lacunar infarct. This history obtained by Dr. Drake was reviewed and confirmed with the patient. Patient told me that he woke up at around 1 AM to go to the bathroom when he fell and realized that his left side was weak. Subsequently he recovered left lower extremity strength but now has mild right upper extremities weakness. CTA of the neck and intracranial vessels were unremarkable. MRI of the brain shows right thalamic lacunar infarct. On presentation patient was noted to have severe hypertension. Patient denies any previous diagnosis of atrial fibrillation and denies any palpitations. He claims he has never been evaluated for sleep apnea and denies any history of snoring. Past Medical History Cardiac Medical History: Reports: Hyperlipidema, Hypertension Denies: Atrial Fibrillation, Congestive Heart Failure, Myocardial Infarction Pulmonary Medical History: Denies: Asthma, Bronchitis, Chronic Obstructive Pulmonary Disease (COPD), Pneumonia, Tuberculosis Neurological Medical History: Denies: Migraine, Seizures Endocrine Medical History: Reports: Diabetes Mellitus Type 2 Denies: Diabetes Mellitus Type 1 Renal/ Medical History: Reports: Chronic Kidney Disease Denies: End Stage Renal Disease GI Medical History: Reports: Gastroesophageal Reflux Disease Denies: Hiatal Hernia Musculoskeltal Medical History: Denies: Arthritis Psychiatric Medical History: Denies: Attention Deficit Hyperactivity Disorder, Bipolar Disorder, Depression Hematology: Denies: Anemia, Sickle Cell Disease Past Surgical History Past Surgical History: Reports: Other - rt nephroectomy Social History Information Source: Patient Smoking Status: Unknown if Ever Smoked Electronic Cigarette use?: No Frequency of Alcohol Use: Social Hx Recreational Drug Use: No Hx Prescription Drug Abuse: No - Advance Directive Resuscitation Status: Full Code Family History Family History: Reviewed & Not Pertinent Parental Family History Reviewed: Yes Children Family History Reviewed: Yes Sibling(s) Family History Reviewed.: Yes Medication/Allergy Home Medications: Aspirin [Ecotrin 81 mg EC Tablet] 81 mg PO DAILY 06/25/19 Atorvastatin Calcium [Lipitor 20 mg Tablet] 20 mg PO QHS 06/25/19 Carvedilol [Coreg 12.5 mg Tablet] 12.5 mg PO Q12 06/25/19 Empagliflozin [Jardiance] 10 mg PO DAILY 06/25/19 Ferrous Sulfate [Feosol 325 mg Tablet] 325 mg PO DAILY 06/25/19 Furosemide [Lasix 20 mg Tablet] 20 mg PO MOTUWETHFR@1000 06/25/19 Glipizide [Glucotrol 5 mg Tablet] 5 mg PO BID 06/25/19 Levothyroxine Sodium [Synthroid] 200 mg PO Q6AM 06/25/19 Lisinopril [Zestril] 40 mg PO DAILY 06/25/19 Sitagliptin Phosphate [Januvia 50 mg Tablet] 100 mg PO DAILY 06/25/19 Allergies/Adverse Reactions: No Known Allergies Allergy (Unverified 06/25/19 03:30) Review of Systems Constitutional: ABSENT: chills, fever(s), headache(s), weight gain, weight loss Eyes: ABSENT: visual disturbances Ears: ABSENT: hearing changes Cardiovascular: PRESENT: dyspnea on exertion. ABSENT: chest pain, edema, orthropnea, palpitations Respiratory: ABSENT: cough, hemoptysis Gastrointestinal: ABSENT: abdominal pain, constipation, diarrhea, hematemesis, hematochezia, nausea, vomiting Genitourinary: ABSENT: dysuria, hematuria Musculoskeletal: ABSENT: joint swelling Integumentary: ABSENT: rash, wounds Neurological: PRESENT: other - Admission with left-sided weakness. ABSENT: abnormal gait, abnormal speech, confusion, dizziness, focal weakness, syncope Psychiatric: ABSENT: anxiety, depression, homidical ideation, suicidal ideation Endocrine: ABSENT: cold intolerance, heat intolerance, polydipsia, polyuria Hematologic/Lymphatic: ABSENT: easy bleeding, easy bruising Physical Exam Vital Signs: Temp Pulse Resp BP Pulse Ox 98.6 F 65 18 165/61 H 97 06/25/19 08:28 06/25/19 08:28 06/25/19 08:28 06/25/19 08:28 06/25/19 08:28 Intake & Output 06/24/19 06/25/19 06/26/19 06:59 06:59 06:59 Intake Total 200 Output Total 800 Balance -600 Weight 102.058 kg General appearance: PRESENT: no acute distress, well-developed, well-nourished Head exam: PRESENT: atraumatic, normocephalic Eye exam: PRESENT: conjunctiva pink, EOMI, PERRLA. ABSENT: scleral icterus Ear exam: PRESENT: normal external ear exam Mouth exam: PRESENT: moist, tongue midline Neck exam: ABSENT: carotid bruit, JVD, lymphadenopathy, thyromegaly Respiratory exam: PRESENT: clear to auscultation corrine. ABSENT: rales, rhonchi, wheezes Cardiovascular exam: PRESENT: RRR. ABSENT: diastolic murmur, rubs, systolic murmur Pulses: PRESENT: normal dorsalis pedis pul Vascular exam: PRESENT: normal capillary refill GI/Abdominal exam: PRESENT: normal bowel sounds, soft. ABSENT: distended, guarding, mass, organolmegaly, rebound, tenderness Rectal exam: PRESENT: deferred Extremities exam: PRESENT: full ROM. ABSENT: calf tenderness, clubbing, pedal edema Neurological exam: PRESENT: alert, awake, oriented to person, oriented to place, oriented to time, oriented to situation, CN II-XII grossly intact, motor sensory deficit, other - Mild left upper extremity weakness noted. Patient has slightly unstable gait. Patient describes mild numbness left forearm. Psychiatric exam: PRESENT: appropriate affect, normal mood. ABSENT: homicidal ideation, suicidal ideation Skin exam: PRESENT: dry, intact, warm. ABSENT: cyanosis, rash Results Laboratory Results: 06/25/19 02:57 06/25/19 02:57 06/25/19 06/25/19 02:57 02:57 WBC 10.0 RBC 4.51 Hgb 13.7 Hct 38.3 MCV 85 MCH 30.4 MCHC 35.8 RDW 15.0 H Plt Count 179 Seg Neutrophils % 81.5 H Sodium 133.7 L Potassium 4.9 Chloride 95 L Carbon Dioxide 29 Anion Gap 10 BUN 34 H Creatinine 1.36 H Est GFR ( Amer) > 60 Glucose 365 H Calcium 9.8 Total Bilirubin 0.5 AST 26 Alkaline Phosphatase 108 Total Protein 8.1 Albumin 4.6 06/25/19 06/25/19 06/25/19 02:57 02:57 07:29 Creatine Kinase 72 100 CK-MB (CK-2) 1.78 Troponin I < 0.012 06/25/19 07:29 Creatine Kinase CK-MB (CK-2) 2.27 Troponin I < 0.012 EKG Comments: Sinus rhythm, left axis deviation, minor nonspecific IVCD. No acute ST segment changes. Impressions: Chest X-Ray 06/25/19 00:00 IMPRESSION: No acute cardiopulmonary process copyright 2011 [employer]- All Rights Reserved Head CT 06/25/19 00:00 IMPRESSION: 1. No acute intracranial abnormality by CT criteria. This exam was performed according to our departmental dose-optimization program, which includes automated exposure control, adjustment of the mA and/or kV according to patient size and/or use of iterative reconstruction technique. Head CTA 06/25/19 03:58 IMPRESSION: No discrete filling defect, aneurysm, or obvious stenosis is seen within the anterior or posterior intracranial circulation. There are no findings to suggest a hemodynamically significant stenosis of the carotid arteries. There is persistent concern for an acute stroke, MRI imaging using weighted sequences should be considered. Neck CTA 06/25/19 03:58 IMPRESSION: No discrete filling defect, aneurysm, or obvious stenosis is seen within the anterior or posterior intracranial circulation. There are no findings to suggest a hemodynamically significant stenosis of the carotid arteries. There is persistent concern for an acute stroke, MRI imaging using weighted sequences should be considered. Head MRI 06/25/19 06:12 IMPRESSION: Acute, nonhemorrhagic lacunar infarct right thalamus. EVIDENCE OF ACUTE STROKE: YES. 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 Assessment & Plan - Diagnosis (1) Acute CVA (cerebrovascular accident) Is this a current diagnosis for this admission?: Yes (2) Chronic kidney disease Qualifiers: Chronic kidney disease stage: stage 3 (moderate) Qualified Code(s): N18.3 - Chronic kidney disease, stage 3 (moderate) Is this a current diagnosis for this admission?: Yes (3) Hyperlipidemia Qualifiers: Hyperlipidemia type: unspecified Qualified Code(s): E78.5 - Hyperlipidemia, unspecified Is this a current diagnosis for this admission?: Yes (4) Hypertension Qualifiers: Hypertension type: unspecified Qualified Code(s): I10 - Essential (primary) hypertension Is this a current diagnosis for this admission?: Yes (5) Diabetes Qualifiers: Diabetes mellitus type: type 2 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 No prior history of atrial fibrillation. Currently on telemetry patient maintaining sinus rhythm. Patient has history of hypertension, diabetes and was noted on presentation to have high blood pressure. MRI brain shows lacunar infarct in the thalamic region. This is very typical of hypertensive cerebrovascular accident and due to arteriolar degeneration of the penetrating arteries. Treatment should consist of control of blood pressure, antiplatelets and antilipid therapy. Patient of course would benefit from prolonged cardiac monitoring as an outpatient to rule out any transient atrial fibrillation. At this point would not recommend chronic anticoagulation unless patient is proven to have atrial fibrillation. Chronic kidney disease: Expertly managed by director adult. Hypertension: Immediate goal blood pressure is less than 160 mmHg. Subsequently should be less than 140 mmHg. Hyperlipidemia: Continue statin therapy. LDL goal less than 70. Diabetes: Being expertly managed by director adult. At some point in the future, patient will benefit from a sleep apnea evaluation. As usual I thank Dr. Drake for the kind referral. - Time Time Spent: 30 to 50 Minutes - More than 50% of the time spent coordinating care, discussing management plans with involved caregivers. Management plans discussed with involved personnels. Medical decision making was of moderate to high complexity, patient's has multiple comorbidities. Medications reviewed and adjusted accordingly: Yes
[2019-06-25 12:38] LABS: CHOLESTEROL 178.92 mg/dL (0-200); TRIGLYCERIDES 385 mg/dL (<150)
[2019-06-25 12:51] LABS: DIRECT LDL 104 mg/dL (<100)
--- NOTE | 2019-06-25 13:17 | XCELERA REPORT ---
[address] [address] Transthoracic Echocardiogram Report Name: TRAE GUZMAN Age: 68 yrs Gender: Male : 1950 Patient Status: Inpatient Patient Location: [address] [place], [place] [address] Study Date: 06/25/2019 11:16 AM Height: 69 in Weight: 225 lb BSA: 2.2 m2 Reason For Study: stroke Ordering Physician: JIN KENYON Performed By: Maria Antonia Noyola Interpretation Summary Interpretation Summary TRANS THORACIC ECHOCARDIOGRAM FINDINGS: Technically fair to difficult. LEFT VENTRICLE: LV Systolic function: LVEF is felt to be within normal limits. Best estimate is approximately LVEF is 60 %. LV Diastolic Function: Grade II diastolic dysfunction noted. Wall motion : No definite regional wall motion abnormalities are noted. Left ventricular chamber size : is within normal limit. Left ventricular wall thickness : is increased indicative of Mild LVH. INTERVENTRICULAR SEPTUM: no evidence of VSD noted. No asymmetric hypertrophy noted. RIGHT VENTRICLE: RV systolic function : is felt to be within normal limit. Right Ventricle Size : borderline dilated. LEFT ATRIUM size : Moderately dilated. RIGHT ATRIUM size : is within normal limit. INTER ATRIAL SEPTUM : No definite atrial septal defect noted however a small PFO could be missed. AORTIC ROOT : seems to be within normal limits. Ascending aorta is not well visualized. INFERIOR VENA CAVA: was not well visualized. VALVES: MITRAL VALVE : Leaflets are mildly thickened. Mobility seems to be within normal limits. Mitral Regurgitation : Trace mitral regurgitation is noted. Mitral Stenosis: No mitral stenosis noted. Mitral valve prolapse : none noted. AORTIC VALVE: seems to be trileaflet with thickening but adequate excursion. Aortic stenosis : No aortic stenosis noted. Aortic regurgitation : No aortic incompetence noted. TRICUSPID VALVE : mobility and structures within normal limit. Tricuspid stenosis : no tricuspid stenosis noted. Tricuspid regurgitation : Trace tricuspid regurgitation noted. Estimated RVSP : tricuspid jet envelope not well defined to measure RV systolic pressure accurately. PULMONARY VALVE : was not well visualized but no significant abnormalities suspected. Pulmonary stenosis : no significant pulmonary stenosis noted. Pulmonary regurgitation : no significant pulmonary regurgitation noted. MASSES AND THROMBUS : No definite intracardiac thrombus or masses are noted. PERICARDIUM: No pericardial effusion was noted. IMPRESSION : 1. Normal LVEF. 2. Mild LVH noted. 3. Grade II Diastolic Dysfunction noted. 4. No significant valvular stenosis or regurgitation noted. 5. Left atrium is moderately dilated. RV is mildly dilated. 6. Cannot rule out cardiac source for embolism, however no intracardiac thrombus noted. Clinical correlation is requested. BREE is more sensitive. May consider transesophageal echocardiogram if clinically indicated. MMode/2D Measurements & Calculations RVDd: 4.6 cm LVIDd: 5.1 cm FS: 40.6 % Ao root diam: 3.3 cm IVSd: 1.2 cm LVIDs: 3.0 cm EDV(Teich): 121.3 ml LVPWd: 1.2 cm ESV(Teich): 35.1 ml Ao root area: 8.7 cm2 LA dimension: 4.8 cm EF(Teich): 71.1 % Doppler Measurements & Calculations MV E max freddy: MV P1/2t max freddy: Ao V2 max: LV V1 max P.1 cm/sec 70.1 cm/sec 119.0 cm/sec 4.5 mmHg MV A max freddy: MV P1/2t: 68.0 msec Ao max PG: LV V1 max: 79.0 cm/sec MVA(P1/2t): 3.2 cm2 5.7 mmHg 105.6 cm/sec MV E/A: 0.88 MV dec slope: 301.9 cm/sec2 MV dec time: 0.24 sec PA V2 max: PI end-d freddy: TR max freddy: MV P1/2t-pr_phl: 119.4 cm/sec 115.4 cm/sec 241.6 cm/sec 68.0 msec PA max PG: TR max P.7 mmHg 23.4 mmHg : JIN KENYON Shyamal
[2019-06-25] MEDS: ATORVASTATIN CALCIUM 40 MG TABLET PO SCH (21:21)
[2019-06-26] MEDS: LEVOTHYROXINE SODIUM 0.1 MG TABLET PO SCH (05:15)
[2019-06-26 05:40] LABS: ABSOLUTE EOSINOPHILS # (AUTO) 0.2 10^3/uL (0.0-0.6); ABSOLUTE LYMPHOCYTES (AUTO) 0.9 10^3/uL (0.5-4.7); ABSOLUTE MONOCYTES (AUTO) 0.6 10^3/uL (0.1-1.4); ABSOLUTE NEUT (AUTO) 7.1 10^3/uL (1.7-8.2); BASOPHILS % (AUTO) 0.6 % (0-2); EOSINOPHILS % (AUTO) 2.5 % (0-6); HEMOGLOBIN 13.2 g/dL (13.5-17.0); LYMPHOCYTES % (AUTO) 10.5 % (13-45); MEAN CORPUSCULAR HGB CONC 35.7 g/dL (32.0-36.0); MEAN CORPUSCULAR VOLUME 84 fl (80-97); MONOCYTES % (AUTO) 6.2 % (3-13); PLATELET COUNT 171 10^3/uL (150-450); RED CELL DISTRIBUTION WIDTH 14.8 % (11.5-14.0); SEGMENTED NEUTROPHILS % (AUTO) 80.2 % (42-78); TOTAL CELLS COUNTED % (AUTO) 100 %; WHITE BLOOD COUNT 8.9 10^3/uL (4.0-10.5)
[2019-06-26 05:58] LABS: ANION GAP 8 (5-19); BLOOD UREA NITROGEN 33 mg/dL (7-20); CALCIUM 9.7 mg/dL (8.4-10.2); CARBON DIOXIDE 28 mmol/L (22-30); CHLORIDE 98 mmol/L (98-107); CHOLESTEROL 188.42 mg/dL (0-200); GLUCOSE 277 mg/dL (75-110); POTASSIUM 4.8 mmol/L (3.6-5.0); TRIGLYCERIDES 480 mg/dL (<150)
[2019-06-26] MEDS ORDERED: LEVOTHYROXINE SODIUM 200 MG PO SCH (06:00)
[2019-06-26 06:08] LABS: DIRECT LDL 95 mg/dL (<100)
[2019-06-26] MEDS: INSULIN LISPRO 100 UNIT/ML 3 ML VIAL SUBCUT SCH ×4 (07:45→22:11)
--- NOTE | 2019-06-26 09:35 | PDOC PROGRESS REPORT ---
Subjective Progress Note for:: 06/26/19 Subjective:: Patient is currently doing well Patient still have left upper extremities weakness but other than that patient's walk yesterday with the physical therapy without any problems Patient's denied any chest pain no short of breath no headache Echocardiogram is all stable His blood pressure is 1 40-1 50 range currently hold the blood pressure medications Discussed with the patient about insulin treatments patient's not excited about that preferred to continues the p.o. treatments but I think patients might beneficiary with the once a day insulin Reason For Visit: STROKE Physical Exam Vital Signs: Temp Pulse Resp BP Pulse Ox 98.0 F 60 18 126/60 H 95 06/26/19 03:24 06/26/19 07:58 06/26/19 07:58 06/26/19 07:58 06/26/19 07:58 Intake & Output 06/25/19 06/26/19 06/27/19 06:59 06:59 06:59 Intake Total 200 855 Output Total 800 Balance -600 855 Weight 102.058 kg General appearance: PRESENT: no acute distress, well-developed, well-nourished Head exam: PRESENT: atraumatic, normocephalic Eye exam: PRESENT: conjunctiva pink, EOMI, PERRLA. ABSENT: scleral icterus Ear exam: PRESENT: normal external ear exam Mouth exam: PRESENT: moist, tongue midline Neck exam: PRESENT: full ROM. ABSENT: carotid bruit, JVD, lymphadenopathy, thyromegaly Respiratory exam: PRESENT: clear to auscultation corrine Cardiovascular exam: PRESENT: RRR. ABSENT: diastolic murmur, rubs, systolic murmur Pulses: PRESENT: normal dorsalis pedis pul, +2 pedal pulses bilateral Vascular exam: PRESENT: normal capillary refill GI/Abdominal exam: PRESENT: normal bowel sounds, soft. ABSENT: distended, guarding, mass, organolmegaly, rebound, tenderness Rectal exam: PRESENT: deferred Neurological exam: PRESENT: alert, awake, oriented to person, oriented to place, oriented to time, oriented to situation, CN II-XII grossly intact. ABSENT: motor sensory deficit Additional comments: Left upper extremity 4/5 strength Psychiatric exam: PRESENT: appropriate affect, normal mood. ABSENT: homicidal ideation, suicidal ideation Skin exam: PRESENT: dry, intact, warm. ABSENT: cyanosis, rash Results Laboratory Results: 06/26/19 05:05 06/26/19 05:05 06/25/19 06/25/19 06/26/19 11:53 11:53 05:05 WBC RBC Hgb Hct MCV MCH MCHC RDW Plt Count Seg Neutrophils % Sodium 133.9 L Potassium 4.8 Chloride 98 Carbon Dioxide 28 Anion Gap 8 BUN 33 H Creatinine 1.25 Est GFR ( Amer) > 60 Glucose 277 H Calcium 9.7 Triglycerides 385 H 480 H Cholesterol 178.92 188.42 LDL Cholesterol Direct 104 H 95 VLDL Cholesterol 77.0 H HDL Cholesterol 32 L 29 L TSH 2.51 06/26/19 05:05 WBC 8.9 RBC 4.40 Hgb 13.2 L Hct 37.0 L MCV 84 MCH 30.0 MCHC 35.7 RDW 14.8 H Plt Count 171 Seg Neutrophils % 80.2 H Sodium Potassium Chloride Carbon Dioxide Anion Gap BUN Creatinine Est GFR ( Amer) Glucose Calcium Triglycerides Cholesterol LDL Cholesterol Direct VLDL Cholesterol HDL Cholesterol TSH 06/25/19 06/25/19 06/25/19 02:57 02:57 07:29 Creatine Kinase 72 100 CK-MB (CK-2) 1.78 Troponin I < 0.012 06/25/19 06/25/19 06/25/19 07:29 11:53 11:53 Creatine Kinase 141 CK-MB (CK-2) 2.27 Troponin I < 0.012 < 0.012 06/25/19 06/25/19 06/26/19 17:52 17:52 00:20 Creatine Kinase 141 119 CK-MB (CK-2) Troponin I 0.014 06/26/19 00:20 Creatine Kinase CK-MB (CK-2) Troponin I 0.021 Impressions: Chest X-Ray 06/25/19 00:00 IMPRESSION: No acute cardiopulmonary process copyright 2011 [employer]- All Rights Reserved Head CT 06/25/19 00:00 IMPRESSION: 1. No acute intracranial abnormality by CT criteria. This exam was performed according to our departmental dose-optimization program, which includes automated exposure control, adjustment of the mA and/or kV according to patient size and/or use of iterative reconstruction technique. Head CTA 06/25/19 03:58 IMPRESSION: No discrete filling defect, aneurysm, or obvious stenosis is seen within the anterior or posterior intracranial circulation. There are no findings to suggest a hemodynamically significant stenosis of the carotid arteries. There is persistent concern for an acute stroke, MRI imaging using weighted sequences should be considered. Neck CTA 06/25/19 03:58 IMPRESSION: No discrete filling defect, aneurysm, or obvious stenosis is seen within the anterior or posterior intracranial circulation. There are no findings to suggest a hemodynamically significant stenosis of the carotid arteries. There is persistent concern for an acute stroke, MRI imaging using weighted sequences should be considered. Head MRI 06/25/19 06:12 IMPRESSION: Acute, nonhemorrhagic lacunar infarct right thalamus. EVIDENCE OF ACUTE STROKE: YES. 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 Assessment & Plan - Diagnosis (1) Acute CVA (cerebrovascular accident) Is this a current diagnosis for this admission?: Yes Plan: Continues to current medications (2) Hypertension Qualifiers: Hypertension type: unspecified Qualified Code(s): I10 - Essential (primary) hypertension Is this a current diagnosis for this admission?: Yes (3) Poorly controlled diabetes mellitus Is this a current diagnosis for this admission?: Yes (4) Hyperlipidemia Qualifiers: Hyperlipidemia type: unspecified Qualified Code(s): E78.5 - Hyperlipidemia, unspecified Is this a current diagnosis for this admission?: Yes (5) Renal mass Is this a current diagnosis for this admission?: Yes (6) Chronic kidney disease Qualifiers: Chronic kidney disease stage: stage 3 (moderate) Qualified Code(s): N18.3 - Chronic kidney disease, stage 3 (moderate) Is this a current diagnosis for this admission?: Yes - Time Time Spent with patient: 15-24 minutes Level of Care: IMCU Medications reviewed and adjusted accordingly: Yes Anticipated discharge: Home with Homehealth Within: Other - Plan Summary Plan Summary: Continues the CVA protocol continues to current medications
[2019-06-26] MEDS: ENOXAPARIN SODIUM INJ 40 MG/0.4 ML DISP.SYRIN SUBCUT SCH (10:29)
[2019-06-26] MEDS: INSULIN GLARGINE,HUM.REC.ANLOG 1,000 UNIT/10 ML VIAL SUBCUT SCH (10:30)
[2019-06-26] MEDS: CLOPIDOGREL BISULFATE 75 MG TABLET PO SCH (10:31)
[2019-06-26] MEDS: GLIPIZIDE 5 MG TABLET PO SCH ×2 (10:31→17:31)
[2019-06-26] MEDS: SITAGLIPTIN PHOSPHATE 50 MG TABLET PO SCH (10:31)
[2019-06-26] MEDS: ASPIRIN 81 MG TABLET, ENT COATED PO SCH (10:32)
[2019-06-26] MEDS: FAMOTIDINE 20 MG TABLET PO SCH ×2 (10:32→22:11)
--- NOTE | 2019-06-26 13:21 | PDOC PROGRESS REPORT ---
Subjective Progress Note for:: 06/26/19 Subjective:: Patient seems to be doing better with gradual improvement. Left arm weakness has improved pt is denying any chest arm or neck discomfort. Patient denying any PND, orthopnea. Patient denied any sustained palpitations, dizziness, syncope, near syncope. Patient denying any fever chills. Patient denying any other significant discomfort. Patient is maintaining sinus rhythm. Review of systems: Rest review of systems negative. Medications: Medications have been reviewed. Reason For Visit: STROKE Physical Exam Vital Signs: Temp Pulse Resp BP Pulse Ox 97.2 F 63 18 176/63 H 99 06/26/19 11:46 06/26/19 12:00 06/26/19 12:00 06/26/19 12:00 06/26/19 12:00 Intake & Output 06/25/19 06/26/19 06/27/19 06:59 06:59 06:59 Intake Total 200 855 Output Total 800 Balance -600 855 Weight 102.058 kg Exam: GENERAL: well-nourished and in no acute distress. Alert and oriented x3 HEAD: Atraumatic, normocephalic. EYES: NAM, sclera anicteric, conjunctiva are normal. ENT: Moist mucous membranes. No oral ulcerations or bleeding gums noted. No obvious ear, nose or throat abnormalities noted. NECK: supple without lymphadenopathy. Trachea is central. No cervical or axillary lymphadenopathy noted. Carotids are 2+, JVD WNL LUNGS: Breath sounds clear bilaterally. No wheezes rales or rhonchi noted. No significant dullness noted on percussion. CHEST: Palpation of the chest wall shows no significant chest wall tenderness. 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 ABDOMEN: Soft, no significant tenderness appreciated, normoactive bowel sounds. No guarding, no rebound. No rigidity noted . No masses appreciated. EXTREMITIES: Pedal pulses are 1-2+, no calf tenderness noted. No clubbing or cyanosis. negative pedal edema noted NEUROLOGICAL: Normal speech and mentation. Probable mild left arm weakness. PSYCH: Normal mood, normal affect. Judgment and insight within normal limits. SKIN: No significant ecchymosis, skin is noted to be warm. MUSCULOSKELETAL EXAM: No significant acute joint swelling noted. Results Laboratory Results: 06/26/19 05:05 06/26/19 05:05 06/25/19 06/25/19 06/26/19 11:53 11:53 05:05 WBC RBC Hgb Hct MCV MCH MCHC RDW Plt Count Seg Neutrophils % Sodium 133.9 L Potassium 4.8 Chloride 98 Carbon Dioxide 28 Anion Gap 8 BUN 33 H Creatinine 1.25 Est GFR ( Amer) > 60 Glucose 277 H Calcium 9.7 Triglycerides 385 H 480 H Cholesterol 178.92 188.42 LDL Cholesterol Direct 104 H 95 VLDL Cholesterol 77.0 H HDL Cholesterol 32 L 29 L TSH 2.51 06/26/19 05:05 WBC 8.9 RBC 4.40 Hgb 13.2 L Hct 37.0 L MCV 84 MCH 30.0 MCHC 35.7 RDW 14.8 H Plt Count 171 Seg Neutrophils % 80.2 H Sodium Potassium Chloride Carbon Dioxide Anion Gap BUN Creatinine Est GFR ( Amer) Glucose Calcium Triglycerides Cholesterol LDL Cholesterol Direct VLDL Cholesterol HDL Cholesterol TSH 06/25/19 06/25/19 06/25/19 02:57 02:57 07:29 Creatine Kinase 72 100 CK-MB (CK-2) 1.78 Troponin I < 0.012 06/25/19 06/25/19 06/25/19 07:29 11:53 11:53 Creatine Kinase 141 CK-MB (CK-2) 2.27 Troponin I < 0.012 < 0.012 06/25/19 06/25/19 06/26/19 17:52 17:52 00:20 Creatine Kinase 141 119 CK-MB (CK-2) Troponin I 0.014 06/26/19 00:20 Creatine Kinase CK-MB (CK-2) Troponin I 0.021 EKG Comments: Telemetry strip shows sinus rhythm. Impressions: Chest X-Ray 06/25/19 00:00 IMPRESSION: No acute cardiopulmonary process copyright 2011 [employer]- All Rights Reserved Head CT 06/25/19 00:00 IMPRESSION: 1. No acute intracranial abnormality by CT criteria. This exam was performed according to our departmental dose-optimization program, which includes automated exposure control, adjustment of the mA and/or kV according to patient size and/or use of iterative reconstruction technique. Head CTA 06/25/19 03:58 IMPRESSION: No discrete filling defect, aneurysm, or obvious stenosis is seen within the anterior or posterior intracranial circulation. There are no findings to suggest a hemodynamically significant stenosis of the carotid arteries. There is persistent concern for an acute stroke, MRI imaging using weighted sequences should be considered. Neck CTA 06/25/19 03:58 IMPRESSION: No discrete filling defect, aneurysm, or obvious stenosis is seen within the anterior or posterior intracranial circulation. There are no findings to suggest a hemodynamically significant stenosis of the carotid arteries. There is persistent concern for an acute stroke, MRI imaging using weighted sequences should be considered. Head MRI 06/25/19 06:12 IMPRESSION: Acute, nonhemorrhagic lacunar infarct right thalamus. EVIDENCE OF ACUTE STROKE: YES. 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 Assessment & Plan - Diagnosis (1) Acute CVA (cerebrovascular accident) Is this a current diagnosis for this admission?: Yes (2) Chronic kidney disease Qualifiers: Chronic kidney disease stage: stage 3 (moderate) Qualified Code(s): N18.3 - Chronic kidney disease, stage 3 (moderate) Is this a current diagnosis for this admission?: Yes (3) Hyperlipidemia Qualifiers: Hyperlipidemia type: unspecified Qualified Code(s): E78.5 - Hyperlipidemia, unspecified Is this a current diagnosis for this admission?: Yes (4) Hypertension Qualifiers: Hypertension type: unspecified Qualified Code(s): I10 - Essential (primary) hypertension Is this a current diagnosis for this admission?: Yes (5) Diabetes Qualifiers: Diabetes mellitus type: type 2 Diabetes mellitus long term care pharmacist insulin use: unspecified long term care pharmacist insulin use status Diabetes mellitus complication status: with other specified complication Qualified Code(s): E11.69 - Type 2 diabetes mellitus with other specified complication Is this a current diagnosis for this admission?: Yes - Notes Notes: Acute cerebrovascular accident with left-sided weakness: Carotid CTA and intracranial CTA negative for significant stenosis. No prior history of atrial fibrillation. Currently on telemetry patient maintaining sinus rhythm. Patient has history of hypertension, diabetes and was noted on presentation to have high blood pressure. MRI brain shows lacunar infarct in the thalamic region. This is very typical of hypertensive cerebrovascular accident and due to arteriolar degeneration of the penetrating arteries. Treatment should consist of control of blood pressure, antiplatelets and antilipid therapy. Patient of course would benefit from prolonged cardiac monitoring as an outpatient to rule out any transient atrial fibrillation. At this point would not recommend chronic anticoagulation unless patient is proven to have atrial fibrillation. Chronic kidney disease: Expertly managed by active directory systems administrator. Hypertension: Immediate goal blood pressure is less than 160 mmHg. Subsequently should be less than 140 mmHg. Hyperlipidemia: Continue statin therapy. LDL goal less than 70. Diabetes: Being expertly managed by active directory systems administrator. At some point in the future, patient will benefit from a sleep apnea evaluation. 06/26/2019: Case discussed with Dr. Drake. Agree with holding blood pressure medications. No new changes or recommendation at this point. Patient should follow-up with me on discharge.
[2019-06-26] MEDS: ATORVASTATIN CALCIUM 40 MG TABLET PO SCH (22:11)
[2019-06-27] MEDS: LEVOTHYROXINE SODIUM 0.1 MG TABLET PO SCH (05:40)
[2019-06-27 05:46] LABS: ANION GAP 8 (5-19); BLOOD UREA NITROGEN 29 mg/dL (7-20); CALCIUM 9.7 mg/dL (8.4-10.2); CARBON DIOXIDE 28 mmol/L (22-30); CHLORIDE 100 mmol/L (98-107); GLUCOSE 223 mg/dL (75-110); POTASSIUM 4.7 mmol/L (3.6-5.0)
[2019-06-27] MEDS: INSULIN LISPRO 100 UNIT/ML 3 ML VIAL SUBCUT SCH ×4 (08:07→21:30)
[2019-06-27] MEDS: ASPIRIN 81 MG TABLET, ENT COATED PO SCH (10:19)
[2019-06-27] MEDS: SITAGLIPTIN PHOSPHATE 50 MG TABLET PO SCH (10:19)
[2019-06-27] MEDS: FAMOTIDINE 20 MG TABLET PO SCH ×2 (10:20→21:28)
[2019-06-27] MEDS: GLIPIZIDE 5 MG TABLET PO SCH ×2 (10:20→17:05)
[2019-06-27] MEDS: CLOPIDOGREL BISULFATE 75 MG TABLET PO SCH (10:23)
[2019-06-27] MEDS: ENOXAPARIN SODIUM INJ 40 MG/0.4 ML DISP.SYRIN SUBCUT SCH ×2 (10:25→10:31)
[2019-06-27] MEDS: INSULIN GLARGINE,HUM.REC.ANLOG 1,000 UNIT/10 ML VIAL SUBCUT SCH (10:26)
--- NOTE | 2019-06-27 14:08 | PDOC PROGRESS REPORT ---
Subjective Progress Note for:: 06/27/19 Subjective:: Patient is currently doing well Patient's denied any chest pain no short of breath Patient is not really interesting to do the insulin continues to prefer to p.o. medications Is denied any weakness other than the left upper extremities No headache Reason For Visit: STROKE Physical Exam Vital Signs: Temp Pulse Resp BP Pulse Ox 97.6 F 61 18 185/69 H 92 06/27/19 07:56 06/27/19 08:00 06/27/19 08:00 06/27/19 08:00 06/27/19 08:00 Intake & Output 06/26/19 06/27/19 06/28/19 06:59 06:59 06:59 Intake Total 855 1443 Balance 855 1443 Weight 89.4 kg General appearance: PRESENT: no acute distress, well-developed, well-nourished Head exam: PRESENT: atraumatic, normocephalic Eye exam: PRESENT: conjunctiva pink, EOMI, PERRLA. ABSENT: scleral icterus Ear exam: PRESENT: normal external ear exam Mouth exam: PRESENT: moist, tongue midline Neck exam: PRESENT: full ROM. ABSENT: carotid bruit, JVD, lymphadenopathy, thyromegaly Respiratory exam: PRESENT: clear to auscultation corrine Cardiovascular exam: PRESENT: RRR. ABSENT: diastolic murmur, rubs, systolic murmur Pulses: PRESENT: normal dorsalis pedis pul, +2 pedal pulses bilateral Vascular exam: PRESENT: normal capillary refill GI/Abdominal exam: PRESENT: normal bowel sounds, soft. ABSENT: distended, guard ing, mass, organolmegaly, rebound, tenderness Rectal exam: PRESENT: deferred Neurological exam: PRESENT: alert, awake, oriented to person, oriented to place, oriented to time, oriented to situation, CN II-XII grossly intact. ABSENT: motor sensory deficit Additional comments: Left upper extremity 4 x 5 strength Psychiatric exam: PRESENT: appropriate affect, normal mood. ABSENT: homicidal ideation, suicidal ideation Skin exam: PRESENT: dry, intact, warm. ABSENT: cyanosis, rash Results Laboratory Results: 06/26/19 05:05 06/27/19 04:39 06/27/19 04:39 Sodium 136.3 L Potassium 4.7 Chloride 100 Carbon Dioxide 28 Anion Gap 8 BUN 29 H Creatinine 1.30 H Est GFR ( Amer) > 60 Glucose 223 H Calcium 9.7 06/25/19 06/25/19 06/25/19 02:57 02:57 07:29 Creatine Kinase 72 100 CK-MB (CK-2) 1.78 Troponin I < 0.012 06/25/19 06/25/19 06/25/19 07:29 11:53 11:53 Creatine Kinase 141 CK-MB (CK-2) 2.27 Troponin I < 0.012 < 0.012 06/25/19 06/25/19 06/26/19 17:52 17:52 00:20 Creatine Kinase 141 119 CK-MB (CK-2) Troponin I 0.014 06/26/19 00:20 Creatine Kinase CK-MB (CK-2) Troponin I 0.021 Impressions: Chest X-Ray 06/25/19 00:00 IMPRESSION: No acute cardiopulmonary process copyright 2011 [employer]- All Rights Reserved Head CT 06/25/19 00:00 IMPRESSION: 1. No acute intracranial abnormality by CT criteria. This exam was performed according to our departmental dose-optimization program, which includes automated exposure control, adjustment of the mA and/or kV according to patient size and/or use of iterative reconstruction technique. Head CTA 06/25/19 03:58 IMPRESSION: No discrete filling defect, aneurysm, or obvious stenosis is seen within the anterior or posterior intracranial circulation. There are no findings to suggest a hemodynamically significant stenosis of the carotid arteries. There is persistent concern for an acute stroke, MRI imaging using weighted sequences should be considered. Neck CTA 06/25/19 03:58 IMPRESSION: No discrete filling defect, aneurysm, or obvious stenosis is seen within the anterior or posterior intracranial circulation. There are no findings to suggest a hemodynamically significant stenosis of the carotid arteries. There is persistent concern for an acute stroke, MRI imaging using weighted sequences should be considered. Head MRI 06/25/19 06:12 IMPRESSION: Acute, nonhemorrhagic lacunar infarct right thalamus. EVIDENCE OF ACUTE STROKE: YES. 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 (1) Acute CVA (cerebrovascular accident) Is this a current diagnosis for this admission?: Yes (2) Hypertension Qualifiers: Hypertension type: unspecified Qualified Code(s): I10 - Essential (primary) hypertension Is this a current diagnosis for this admission?: Yes (3) Poorly controlled diabetes mellitus Is this a current diagnosis for this admission?: Yes (4) Hyperlipidemia Qualifiers: Hyperlipidemia type: unspecified Qualified Code(s): E78.5 - Hyperlipidemia, unspecified Is this a current diagnosis for this admission?: Yes (5) Renal mass Is this a current diagnosis for this admission?: Yes (6) Chronic kidney disease Qualifiers: Chronic kidney disease stage: stage 3 (moderate) Qualified Code(s): N18.3 - Chronic kidney disease, stage 3 (moderate) Is this a current diagnosis for this admission?: Yes - Time Time Spent with patient: 25-34 minutes Level of Care: IMCU Medications reviewed and adjusted accordingly: Yes Anticipated discharge: Home with Homehealth Within: Other - Plan Summary Plan Summary: Increase the glipizide
[2019-06-27] MEDS: ATORVASTATIN CALCIUM 40 MG TABLET PO SCH (21:29)
[2019-06-27] MEDS: LISINOPRIL 10 MG TABLET PO SCH (21:29)
[2019-06-28] MEDS: LEVOTHYROXINE SODIUM 0.1 MG TABLET PO SCH (05:50)
[2019-06-28 06:41] LABS: ANION GAP 11 (5-19); BLOOD UREA NITROGEN 26 mg/dL (7-20); CALCIUM 8.7 mg/dL (8.4-10.2); CARBON DIOXIDE 24 mmol/L (22-30); CHLORIDE 100 mmol/L (98-107); GLUCOSE 186 mg/dL (75-110); POTASSIUM 4.5 mmol/L (3.6-5.0)
[2019-06-28] MEDS: INSULIN LISPRO 100 UNIT/ML 3 ML VIAL SUBCUT SCH (08:16)
[2019-06-28 08:44] VITALS: BP 152/57
[2019-06-28] MEDS: LISINOPRIL 10 MG TABLET PO SCH (09:31)
[2019-06-28] MEDS: GLIPIZIDE 5 MG TABLET PO SCH (09:31)
[2019-06-28] MEDS: FAMOTIDINE 20 MG TABLET PO SCH (09:31)
[2019-06-28] MEDS: SITAGLIPTIN PHOSPHATE 50 MG TABLET PO SCH (09:31)
[2019-06-28] MEDS: ENOXAPARIN SODIUM INJ 40 MG/0.4 ML DISP.SYRIN SUBCUT SCH (09:31)
[2019-06-28] MEDS: ASPIRIN 81 MG TABLET, ENT COATED PO SCH (09:31)
[2019-06-28] MEDS: CLOPIDOGREL BISULFATE 75 MG TABLET PO SCH (09:31)
[2019-06-28] MEDS: INSULIN GLARGINE,HUM.REC.ANLOG 1,000 UNIT/10 ML VIAL SUBCUT SCH (09:32)
--- NOTE | 2019-06-28 10:07 | PDOC DISCHARGE SUMMARY ---
Impression - Admit/DC Date/PCP Admission Date/Primary Care Provider: 06/25/19 06:19 JIN KENYON MD Discharge Date: 06/28/19 - Discharge Diagnosis (1) Acute CVA (cerebrovascular accident) Is this a current diagnosis for this admission?: Yes (2) Hypertension Is this a current diagnosis for this admission?: Yes (3) Poorly controlled diabetes mellitus Is this a current diagnosis for this admission?: Yes (4) Hyperlipidemia Is this a current diagnosis for this admission?: Yes (5) Renal mass Is this a current diagnosis for this admission?: Yes (6) Chronic kidney disease Is this a current diagnosis for this admission?: Yes - Additional Information Resuscitation Status: Full Code Discharge Diet: Diabetic Discharge Activity: Activity As Tolerated, Balance Activity w/Rest Referrals: JIN KENYON MD [Primary Care Provider] - Follow up as needed Prescriptions: Atorvastatin Calcium [Lipitor 40 mg Tablet] 40 mg PO QHS #90 tablet Clopidogrel Bisulfate [Plavix 75 mg Tablet] 75 mg PO DAILY #90 tablet Home Medications: Aspirin [Ecotrin 81 mg EC Tablet] 81 mg PO DAILY 06/25/19 Carvedilol [Coreg 12.5 mg Tablet] 12.5 mg PO Q12 06/25/19 Ferrous Sulfate [Feosol 325 mg Tablet] 325 mg PO DAILY 06/25/19 Furosemide [Lasix 20 mg Tablet] 20 mg PO MOTUWETHFR@1000 06/25/19 Glipizide [Glucotrol 5 mg Tablet] 5 mg PO BID 06/25/19 Levothyroxine Sodium [Synthroid] 200 mg PO Q6AM 06/25/19 Lisinopril [Zestril] 40 mg PO DAILY 06/25/19 Sitagliptin Phosphate [Januvia 50 mg Tablet] 100 mg PO DAILY 06/25/19 Atorvastatin Calcium [Lipitor 40 mg Tablet] 40 mg PO QHS #90 tablet 06/28/19 Clopidogrel Bisulfate [Plavix 75 mg Tablet] 75 mg PO DAILY #90 tablet 06/28/19 Empagliflozin [Jardiance] 25 mg PO DAILY #90 06/28/19 Glipizide [Glucotrol 5 mg Tablet] 10 mg PO BID #0 tablet 06/28/19 History of Present Illiness History of Present Illness: TRAE GUZMAN is a 68 year old male There is a 68-year-old male with a history of the type 2 diabetes with a recent A1c is 8.1 unable to afford the Jardiance history of the hypertensions hyperlipidemia history 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 Stinson at [place] to transfer the patient but according to the Dr. Stinson patient does not need any transfer patient is pretty much symptom is stable except the left upper extremity weakness According to the patient last 1 or 2 days patient is feeling this numbness and patient's a little bit balance issues this morning and feels like patient's left upper extremity slightly sleepy Patient is denied any chest pain no short of breath Patient seen by Dr. Parkinson recently have a echo and carotid Doppler was done was all stable Patient's MRI consistent with acute right thalamic lacunar infarct Hospital Course Hospital Course: Is a 68-year-old male admitting in the hospital for the acute thalamic stroke on the right side with weakness in the left upper extremities Patient is otherwise doing well Patient seen by the cardiology echocardiogram was done was all stable suggest outpatients Holter monitor Patient was put on aspirin Plavix and high-dose statin Patient's blood sugar uncontrolled cover with insulin discussed with the patient's to go home with insulin but patients prefer to not go with insulin Adjust the p.o. medication and discussed with the patient's to control the diet very well and if is still not controlled the blood sugar patients is to go to the insulin Patient is otherwise remained stable being arranged out patient's home health and physical therapy Discussed with the patient's family Patient is very anxious to go home Test reports discussed with the patient Physical Exam Vital Signs: Temp Pulse Resp BP Pulse Ox 97.3 F 62 18 152/57 H 98 06/28/19 08:42 06/28/19 08:42 06/28/19 08:42 06/28/19 08:42 06/28/19 08:42 Intake & Output 06/27/19 06/28/19 06/29/19 06:59 06:59 06:59 Intake Total 1443 1353 Balance 1443 1353 Weight 89.4 kg 86.2 kg General appearance: PRESENT: no acute distress, well-developed, well-nourished Head exam: PRESENT: atraumatic, normocephalic Eye exam: PRESENT: conjunctiva pink, EOMI, PERRLA. ABSENT: scleral icterus Ear exam: PRESENT: normal external ear exam Mouth exam: PRESENT: moist, tongue midline Neck exam: ABSENT: carotid bruit, JVD, lymphadenopathy, thyromegaly Respiratory exam: PRESENT: clear to auscultation corrine. ABSENT: rales, rhonchi, wheezes Cardiovascular exam: PRESENT: RRR. ABSENT: diastolic murmur, rubs, systolic murmur Pulses: PRESENT: normal dorsalis pedis pul Vascular exam: PRESENT: normal capillary refill GI/Abdominal exam: PRESENT: normal bowel sounds, soft. ABSENT: distended, guarding, mass, organolmegaly, rebound, tenderness Rectal exam: PRESENT: deferred Extremities exam: PRESENT: full ROM. ABSENT: calf tenderness, clubbing, pedal edema Neurological exam: PRESENT: alert, awake, oriented to person, oriented to place, oriented to time, oriented to situation, CN II-XII grossly intact. ABSENT: motor sensory deficit Psychiatric exam: PRESENT: appropriate affect, normal mood. ABSENT: homicidal ideation, suicidal ideation Skin exam: PRESENT: dry, intact, warm. ABSENT: cyanosis, rash Results Laboratory Results: WBC 8.9 10^3/uL (4.0-10.5) 06/26/19 05:05 RBC 4.40 10^6/uL (4.35-5.55) 06/26/19 05:05 Hgb 13.2 g/dL (13.5-17.0) L 06/26/19 05:05 Hct 37.0 % (37.9-51.0) L 06/26/19 05:05 MCV 84 fl (80-97) 06/26/19 05:05 MCH 30.0 pg (27.0-33.4) 06/26/19 05:05 MCHC 35.7 g/dL (32.0-36.0) 06/26/19 05:05 RDW 14.8 % (11.5-14.0) H 06/26/19 05:05 Plt Count 171 10^3/uL (150-450) 06/26/19 05:05 Lymph % (Auto) 10.5 % (13-45) L 06/26/19 05:05 [place] % (Auto) 6.2 % (3-13) 06/26/19 05:05 Eos % (Auto) 2.5 % (0-6) 06/26/19 05:05 Baso % (Auto) 0.6 % (0-2) 06/26/19 05:05 Absolute Neuts (auto) 7.1 10^3/uL (1.7-8.2) 06/26/19 05:05 Absolute Lymphs (auto) 0.9 10^3/uL (0.5-4.7) 06/26/19 05:05 Absolute Monos (auto) 0.6 10^3/uL (0.1-1.4) 06/26/19 05:05 Absolute Eos (auto) 0.2 10^3/uL (0.0-0.6) 06/26/19 05:05 Absolute Basos (auto) 0.0 10^3/uL (0.0-0.2) 06/26/19 05:05 Seg Neutrophils % 80.2 % (42-78) H 06/26/19 05:05 PT 12.4 SEC (11.4-15.4) 06/25/19 02:57 INR 0.93 06/25/19 02:57 APTT 26.7 SEC (23.5-35.8) 06/25/19 02:57 Sodium 135.1 mmol/L (137-145) L 06/28/19 05:18 Potassium 4.5 mmol/L (3.6-5.0) 06/28/19 05:18 Chloride 100 mmol/L (98-107) 06/28/19 05:18 Carbon Dioxide 24 mmol/L (22-30) 06/28/19 05:18 Anion Gap 11 (5-19) 06/28/19 05:18 BUN 26 mg/dL (7-20) H 06/28/19 05:18 Creatinine 1.17 mg/dL (0.52-1.25) 06/28/19 05:18 Est GFR ( Amer) > 60 (>60) 06/28/19 05:18 Est GFR (MDRD) Non-Af > 60 (>60) 06/28/19 05:18 Glucose 186 mg/dL (75-110) H 06/28/19 05:18 POC Glucose 233 mg/dL (70-110) H 06/28/19 07:53 Hemoglobin A1c % 9.4 % (4.7-6.0) H 06/26/19 05:05 Calcium 8.7 mg/dL (8.4-10.2) 06/28/19 05:18 Total Bilirubin 0.5 mg/dL (0.2-1.3) 06/25/19 02:57 Direct Bilirubin 0.0 mg/dL (0.0-0.4) 06/25/19 02:57 Neonat Total Bilirubin Not Reportable 06/25/19 02:57 Neonat Direct Bilirubin Not Reportable 06/25/19 02:57 Neonat Indirect Bili Not Reportable 06/25/19 02:57 AST 26 U/L (17-59) 06/25/19 02:57 ALT 25 U/L (<50) 06/25/19 02:57 Alkaline Phosphatase 108 U/L (38-126) 06/25/19 02:57 Creatine Kinase 119 U/L (55-170) 06/26/19 00:20 CK-MB (CK-2) 2.27 ng/mL (<4.55) 06/25/19 07:29 Troponin I 0.021 ng/mL 06/26/19 00:20 Total Protein 8.1 g/dL (6.3-8.2) 06/25/19 02:57 Albumin 4.6 g/dL (3.5-5.0) 06/25/19 02:57 Triglycerides 480 mg/dL (<150) H 06/26/19 05:05 Cholesterol 188.42 mg/dL (0-200) 06/26/19 05:05 LDL Cholesterol Direct 95 mg/dL (<100) 06/26/19 05:05 VLDL Cholesterol 77.0 mg/dL (10-31) H 06/25/19 11:53 VLDL Cholesterol, Calc UNABLE TO CALCULATE 06/26/19 05:05 HDL Cholesterol 29 mg/dL (>40) L 06/26/19 05:05 TSH 2.51 uIU/mL (0.47-4.68) 06/25/19 11:53 06/25/19 06/25/19 06/25/19 02:57 07:29 11:53 CK-MB (CK-2) 1.78 2.27 Troponin I < 0.012 < 0.012 < 0.012 06/25/19 06/26/19 17:52 00:20 CK-MB (CK-2) Troponin I 0.014 0.021 Impressions: Chest X-Ray 06/25/19 00:00 IMPRESSION: No acute cardiopulmonary process copyright 2011 [employer]- All Rights Reserved Head CT 06/25/19 00:00 IMPRESSION: 1. No acute intracranial abnormality by CT criteria. This exam was performed according to our departmental dose-optimization program, which includes automated exposure control, adjustment of the mA and/or kV according to patient size and/or use of iterative reconstruction technique. Head CTA 06/25/19 03:58 IMPRESSION: No discrete filling defect, aneurysm, or obvious stenosis is seen within the anterior or posterior intracranial circulation. There are no findings to suggest a hemodynamically significant stenosis of the carotid arteries. There is persistent concern for an acute stroke, MRI imaging using weighted sequences should be considered. Neck CTA 06/25/19 03:58 IMPRESSION: No discrete filling defect, aneurysm, or obvious stenosis is seen within the anterior or posterior intracranial circulation. There are no findings to suggest a hemodynamically significant stenosis of the carotid arteries. There is persistent concern for an acute stroke, MRI imaging using weighted sequences should be considered. Head MRI 06/25/19 06:12 IMPRESSION: Acute, nonhemorrhagic lacunar infarct right thalamus. EVIDENCE OF ACUTE STROKE: YES. 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
== END 2019-06-28 10:10 | disposition home health service (06) | DRG 66 ==
LOC: ER 02:42 → EH 06:19 → 3S 08:20
PROVIDERS: ADMIT Family Medicine; ATTEND Family Medicine
DX: I63.81 Other cerebral infarction due to occlusion or stenosis of small artery (principal); R20.2 Paresthesia of skin; R29.703 NIHSS score 3; I12.9 Hypertensive chronic kidney disease with stage 1 through stage 4 chronic kidney disease, or unspecified chronic kidney disease; E11.22 Type 2 diabetes mellitus with diabetic chronic kidney disease; N18.3 Chronic kidney disease, stage 3 (moderate); E78.5 Hyperlipidemia, unspecified; N28.89 Other specified disorders of kidney and ureter; E11.65 Type 2 diabetes mellitus with hyperglycemia; K21.9 Gastro-esophageal reflux disease without esophagitis; Z90.5 Acquired absence of kidney; Z79.84 Long term (current) use of oral hypoglycemic drugs; Z79.82 Long term (current) use of aspirin
CPT/HCPCS: 36415; 70450; 70496; 70498; 70551; 71045; 80048; 80053; 80061; 82550; 82553; 82962; 83036; 84443; 84484; 85025; 85610; 85730; 93005; 93010; 93306; 99285; J1650; J1815; J3490

== ENCOUNTER 2019-08-13 17:46 | Inpatient (IN) | payer OTHER, MEDICARE ==
[~2019-08-13 17:46] MED LIST: ROCURONIUM BROMIDE INJ 50 MG/5 ML VIAL IV ONE; SUCCINYLCHOLINE CHLORIDE INJ 200 MG/10 ML VIAL ONE
[2019-08-13 19:23] LABS: HEMATOCRIT 39.7 % (37.9-51.0); HEMOGLOBIN 13.6 g/dL (13.5-17.0); MEAN CORPUSCULAR HEMOGLOBIN 28.9 pg (27.0-33.4); MEAN CORPUSCULAR HGB CONC 34.3 g/dL (32.0-36.0); MEAN CORPUSCULAR VOLUME 84 fl (80-97); PLATELET COUNT 143 10^3/uL (150-450); RED CELL DISTRIBUTION WIDTH 14.8 % (11.5-14.0); WHITE BLOOD COUNT 12.2 10^3/uL (4.0-10.5)
[2019-08-13 19:27] LABS: INTERNATIONAL RATION (INR) 1.09; PROTHROMBIN TIME 14.2 SEC (11.4-15.4)
[2019-08-13 19:29] LABS: ALBUMIN 4.6 g/dL (3.5-5.0); ALKALINE PHOSPHATASE 189 U/L (38-126); ANION GAP 12 (5-19); ASPARTATE AMINO TRANSFERASE 223 U/L (17-59); BILIRUBIN,DIRECT 2.6 mg/dL (0.0-0.4); BLOOD UREA NITROGEN 36 mg/dL (7-20); CALCIUM 9.9 mg/dL (8.4-10.2); CARBON DIOXIDE 24 mmol/L (22-30); CHLORIDE 99 mmol/L (98-107); GLUCOSE 241 mg/dL (75-110); POTASSIUM 4.1 mmol/L (3.6-5.0); TOTAL PROTEIN 7.8 g/dL (6.3-8.2)
[2019-08-13 19:44] LABS: ABSOLUTE MONOCYTES # (MANUAL) 0.1 10^3/uL (0.1-1.4); BAND NEUTROPHILS % (MANUAL) 5 % (3-5); BASOPHILS % (MANUAL) 0 % (0-2); EOSINOPHILS % (MANUAL) 0 % (0-6); LYMPHOCYTES % (MANUAL) 0 % (13-45); MONOCYTES % (MANUAL) 1 % (3-13); SEGMENTED NEUTROPHILS % (MAN) 94 % (42-78); TOTAL CELLS COUNTED 100
--- NOTE | 2019-08-13 19:45 | RADIOLOGY REPORT (SQ) ---
EXAM DESCRIPTION: CHEST SINGLE VIEW IMAGES COMPLETED DATE/TIME: 08/13/2019 7:30 pm REASON FOR STUDY: bed 5 sepsis protocol COMPARISON: 06/25/2019 EXAM PARAMETERS: NUMBER OF VIEWS: One view. TECHNIQUE: Single frontal radiographic view of the chest acquired. RADIATION DOSE: NA LIMITATIONS: None. FINDINGS: LUNGS AND PLEURA: No opacities, masses or pneumothorax. No pleural effusion. MEDIASTINUM AND HILAR STRUCTURES: No masses. Contour normal. HEART AND VASCULAR STRUCTURES: Heart normal in size. Normal vasculature. BONES: No acute findings. HARDWARE: None in the chest. OTHER: No other significant finding. IMPRESSION: NO ACUTE RADIOGRAPHIC FINDING IN THE CHEST. TECHNICAL DOCUMENTATION: JOB ID: [id number] 2010 [employer]- All Rights Reserved Reading location - IP/workstation name: [email or web address]
[2019-08-13 19:46] LABS: ANISOCYTOSIS SLIGHT; PLATELET COMMENT ADEQUATE
[2019-08-13 19:58] LABS: VENOUS BLOOD BASE EXCESS -0.9 mmol/L; VENOUS BLOOD HCO3 22.6 mmol/L (20-32); VENOUS BLOOD PCO2 33.6 mmHg (35-63); VENOUS BLOOD PH 7.45 (7.30-7.42)
[2019-08-13] MEDS: RINGERS SOLUTION,LACTATED 1,000 ML IV PRN ×2 (20:50→21:56)
--- NOTE | 2019-08-13 20:54 | ER Document Report ---
ED General - General Chief Complaint: Fever Stated Complaint: FEVER Time Seen by Provider: 08/13/19 20:17 Primary Care Provider: JIN KENYON MD [Primary Care Provider] - Follow up as needed TRAVEL OUTSIDE OF THE [place] IN LAST 30 DAYS: No - HPI Notes: Patient is a 69-year-old male who presents to the emergency department for evaluation of fever. This morning he woke up, was getting ready for work. After eating breakfast, he started feeling sick. He had 2 episodes of nonb loody, nonbilious emesis. He just felt poorly. He denied any pain, no cough. Later on in the day he developed a fever of over 104, EMS was called. He was not given any antipyretics until he saw EMS. At the time of my evaluation the patient states he is feeling better. He denies any pain. He has had no dental issues. No cuts or rashes. He denies any cough or shortness of breath. No sore throat or ear pain. He had a normal bowel movement just prior to my interview with him. He denies any urinary symptoms. - Related Data Allergies/Adverse Reactions: No Known Allergies Allergy (Verified 08/13/19 18:02) Home Medications: List verbally reviewed with patient Past Medical History - General Information source: Patient - Social History Smoking Status: Never Smoker Frequency of alcohol use: None Drug Abuse: None Family History: Reviewed & Not Pertinent Patient has homicidal ideation: No - Past Medical History Cardiac Medical History: Reports: Hx Hypercholesterolemia, Hx Hypertension Denies: Hx Atrial Fibrillation, Hx Congestive Heart Failure, Hx Heart Attack Pulmonary Medical History: Denies: Hx Asthma, Hx Bronchitis, Hx COPD, Hx Pneumonia, Hx Tuberculosis Neurological Medical History: Denies: Hx Migraine, Hx Seizures Endocrine Medical History: Reports: Hx Diabetes Mellitus Type 2, Hx Hypothyroidism. Denies: Hx Diabetes Mellitus Type 1 Renal/ Medical History: Reports: Other - Renal cyst, excised. Denies: Hx End Stage Renal Disease, Hx Kidney Stones GI Medical History: Reports: Hx Gastroesophageal Reflux Disease. Denies: Hx H iatal Hernia, Hx Ulcer Musculoskeletal Medical History: Denies Hx Arthritis Psychiatric Medical History: Denies: Hx Attention Deficit Hyperactivity Disorder, Hx Bipolar Disorder, Hx Depression, Hx Schizophrenia Past Surgical History: Reports: Hx Kidney (Renal Surgery) - mass, Other - rt nephrectomy - Immunizations Hx Pneumococcal Vaccination: 03/11/17 Review of Systems - Review of Systems Constitutional: See HPI Gastrointestinal: See HPI -: Yes All other systems reviewed and negative Physical Exam - Vital signs Vitals: Pulse Ox 94 08/13/19 17:46 - Notes Notes: Vital signs reviewed, please refer to chart. Head is normocephalic, atraumatic. Pupils equal round, reactive to light. Oral mucosa is moist. Dentition is normal. Uvula is midline. Pharynx is without erythema or exudate. Neck is supple without meningismus. Heart is regular rate and rhythm. Lungs are clear to auscultation bilaterally. Abdomen is soft, nontender, normoactive bowel sounds throughout. Extremities without cyanosis, clubbing. Posterior calves are nontender. Peripheral pulses are equal. Skin is warm and dry. Patient is awake, alert, neurological exam is nonfocal. Course - Re-evaluation Re-evalutation: 08/13/19 20:53 Patient presents to the emergency department for evaluation. His temperature was 104.2 for EMS prior to administration of Tylenol. His blood pressures have dropped slightly since being here, currently he is 97/48. The patient states he is feeling much better. He has a mild leukocytosis. His temperature has improved. Chest x-ray was unremarkable. Still awaiting urinalysis. He has a mild increase in his creatinine, but this has happened in the past. Patient is stable, awaiting further testing. 08/13/19 21:38 Patient's LFTs are noted to be elevated. I went back and evaluated him, he still is feeling stable, his abdominal exam remains completely nontender. Decision was made to CT his abdomen and pelvis. He certainly meets sepsis criteria. He is given a appropriate fluid bolus, after speaking with his primary care provider I found him to have a normal EF just a month ago. He is given IV cefepime. Awaiting CT results, we will continue to monitor. Will also perform a rapid COVID-19 test. 08/13/19 23:27 Patient's receiving his third liter of IV fluids, he has improved blood pressure. Maps over 65. Dr. Kenyon came to the department. We talked about this at length. There is concerned about possible cholecystitis as the etiology of this. He asked that I consult with the surgeon. This phone call will be made. At any rate, the patient is currently stable, without any symptoms at all. Will admit to [facility]. 08/13/19 23:[address] Alvares. We talked about the patient at length. We will order HIDA scan to evaluate for cholecystitis in the morning. Otherwise, patient remained stable. His pressures have normalized. His abdomen is entirely nontender, nonsurgical. He will be admitted for further care. We will wait for COVID test prior to official admission. 08/13/19 23:47 - Vital Signs Vital signs: Temp Pulse Resp BP Pulse Ox 98.5 F 22 H 123/49 L 96 08/13/19 23:15 08/13/19 23:15 08/13/19 23:15 08/13/19 23:15 - Laboratory Result Diagrams: 08/13/19 17:57 08/13/19 17:57 Laboratory results interpreted by me: 08/13/19 08/13/19 08/13/19 17:57 17:57 18:00 WBC 12.2 H RDW 14.8 H Plt Count 143 L Seg Neuts % (Manual) 94 H Lymphocytes % (Manual) 0 L Monocytes % (Manual) 1 L Abs Neuts (Manual) 12.1 H Abs Lymphs (Manual) 0.0 L VBG pH VBG pCO2 Sodium 135.1 L BUN 36 H Creatinine 1.51 H Est GFR ( Amer) 56 L Est GFR (MDRD) Non-Af 46 L Glucose 241 H POC Glucose Lactic Acid Total Bilirubin 4.0 H Direct Bilirubin 2.6 H AST 223 H ALT 158 H Alkaline Phosphatase 189 H Urine Protein 30 H Urine Glucose (UA) >=500 H Urine Ketones TRACE H Urine Blood SMALL H Urine Urobilinogen 2.0 H 08/13/19 08/13/19 08/13/19 19:43 19:43 19:43 WBC RDW Plt Count Seg Neuts % (Manual) Lymphocytes % (Manual) Monocytes % (Manual) Abs Neuts (Manual) Abs Lymphs (Manual) VBG pH 7.45 H VBG pCO2 33.6 L Sodium BUN Creatinine Est GFR ( Amer) Est GFR (MDRD) Non-Af Glucose POC Glucose 226 H Lactic Acid 2.3 H Total Bilirubin Direct Bilirubin AST ALT Alkaline Phosphatase Urine Protein Urine Glucose (UA) Urine Ketones Urine Blood Urine Urobilinogen 08/13/19 22:38 WBC RDW Plt Count Seg Neuts % (Manual) Lymphocytes % (Manual) Monocytes % (Manual) Abs Neuts (Manual) Abs Lymphs (Manual) VBG pH VBG pCO2 Sodium BUN Creatinine Est GFR ( Amer) Est GFR (MDRD) Non-Af Glucose POC Glucose Lactic Acid 2.7 H Total Bilirubin Direct Bilirubin AST ALT Alkaline Phosphatase Urine Protein Urine Glucose (UA) Urine Ketones Urine Blood Urine Urobilinogen - Diagnostic Test Radiology reviewed: Image reviewed, Reports reviewed Radiology results interpreted by me: 08/13/19 20:54 Chest X-Ray 08/13/19 19:02 IMPRESSION: NO ACUTE RADIOGRAPHIC FINDING IN THE CHEST. - EKG Interpretation by Me Additional EKG results interpreted by me: 08/13/19 20:54 Sinus mechanism with a rate of 98 bpm. Left axis deviation. IVCD. LVH with nonspecific ST changes. No acute ST elevation concerning for infarction. No change compared to prior study of June 25, 2019. Discharge - Discharge Clinical Impression: Severe sepsis, Abnormal LFTs (liver function tests), Fever Condition: Stable Disposition: ADMITTED INPATIENT Admitting Provider: [facility] Admitted: [facility]U Referrals: JIN KENYON MD [Primary Care Provider] - Follow up as needed
[2019-08-13 21:05] LABS: APPEARANCE,URINE CLEAR; BILIRUBIN,URINE NEGATIVE (NEGATIVE); COLOR,URINE YELLOW; GLUCOSE, URINE >=500 mg/dL (NEGATIVE); KETONES,URINE TRACE mg/dL (NEGATIVE); LEUKOCYTE ESTERASE,URINE NEGATIVE (NEGATIVE); NITRITE,URINE NEGATIVE (NEGATIVE); PROTEIN,URINE 30 mg/dL (NEGATIVE); URINE SPECIFIC GRAVITY 1.023
[2019-08-13] MEDS ORDERED: RINGERS SOLUTION,LACTATED 1,000 ML IV ONE ×2 (21:27)
[2019-08-13] MEDS ORDERED: CEFEPIME 2 GM/D5W RTU 2 GM/50 ML RTUPB IV ONE (21:30)
--- NOTE | 2019-08-13 22:10 | RADIOLOGY REPORT (SQ) ---
CLINICAL INDICATION: elevated LFTs. . TECHNIQUE: Noncontrast spiral axial CT imaging was obtained of the abdomen and pelvis with multiplanar reconstructions. This exam was performed according to our departmental dose-optimization program, which includes automated exposure control, adjustment of the mA and/or kV according to patient size and/or use of iterative reconstruction techniques. COMPARISON: December 11, 2018. CORRELATION: None. FINDINGS: Abdomen: The lung bases are grossly clear. The heart is of normal size. No evidence of pleural or pericardial fluid. The liver appears mildly heterogeneous.. The gallbladder is nondistended. Cholelithiasis without acute cholecystitis.. The pancreas is of grossly normal contour on this noncontrast examination. The spleen is unremarkable. The adrenals are unremarkable. The kidneys demonstrate interval postsurgical change with resection of the mass lesion right kidney when compared to prior. The lesion mid pole the left kidney is again seen, and appears larger than prior measuring 4.2 cm in greatest dimension (previously 3.8 cm).. There is no evidence of free air. No free fluid. No bulky adenopathy. Abdominal aorta is calcified but nonaneurysmal. Pelvis: The bowel is nonobstructed. The bowel is unopacified with oral contrast. Pelvic contents are unremarkable. The appendix is normal. Visualized bones are unremarkable. IMPRESSION: Mild medical hepatic disease. Interval postsurgical change from resection of the mass lesion arising from the right kidney. The mass lesion arising from the left kidney is larger on current examination when compared to prior..
[2019-08-13] MEDS ORDERED: VANCOMYCIN HCL INJ 1000 MG VIAL IV ONE (23:25)
--- NOTE | 2019-08-13 23:33 | RADIOLOGY REPORT (SQ) ---
EXAM DESCRIPTION: Right upper quadrant abdominal ultrasound CLINICAL HISTORY: 69 years Male; RUQ, elevated LFTs TECHNIQUE: Abdominal ultrasound was performed. COMPARISON: CT scan of the abdomen and pelvis without contrast performed earlier in the evening. FINDINGS: Pancreas: The head and tail are not well seen. Dissection of the body is visualized and appears hyperechoic. Overall visualization the pancreas is very limited. Liver: The liver measures 17.8 cm in length. Echogenicity is heterogeneous suggesting fatty infiltration. Portal vein is patent with hepatopedal flow. Overall the liver is not well seen.. Gallbladder: Gallbladder wall is 2.7 mm. The gallbladder is poorly seen. On the CT scan there were gallstones. Common bile duct: 2.5 mm. Right kidney: The kidney measures 9.8 x 6 7.0 x 6.5 cm.. No hydronephrosis. Aorta:Visualized portions are within normal limits. IVC: Visualized portions are within normal limits. Ascites: No free fluid. IMPRESSION: Limited examination demonstrating diffuse fatty infiltration of the liver. The gallbladder is contracted and not well seen.
[2019-08-13] MEDS ORDERED: IPRATROPIUM/ALBUTEROL 0.5-2.5 MG/3 ML AMPUL NEB PRN (23:54)
[2019-08-13] MEDS ORDERED: ACETAMINOPHEN 325 MG TABLET PO PRN (23:54)
[2019-08-13] MEDS ORDERED: NORMAL SALINE 1000 ML 1,000 ML IV PRN (23:54)
[2019-08-14] MEDS ORDERED: VANCOMYCIN HCL 0 MG in DEXTROSE 5%-WATER 250 ML IV NR ×2
[2019-08-14] MEDS ORDERED: GLUCAGON,HUMAN RECOMB 1 MG INJ IM PRN (00:10)
[2019-08-14] MEDS ORDERED: DEXTROSE 50%-WATER 25 GM/50 ML DISP.SYRIN IV PRN ×2 (00:10)
[2019-08-14] MEDS ORDERED: DEXTROSE 40% GEL 15 GM TUBE PO PRN ×2 (00:10)
--- NOTE | 2019-08-14 00:10 | PDOC H&P ---
History of Present Illness Admission Date/PCP: 08/13/19 23:49 JIN KENYON MD Patient complains of: Fever History of Present Illness: TRAE GUZMAN is a 69 year old male Is a 69-year-old male with a recent history of the stroke history of blood type 2 diabetes hypertension hyperlipidemia history of the renal mass status post surgery on the right side pending left-sided [facility] history of diastolic heart failure came to the emergency department with the complaining of fever 103 started today According to the patient this morning patient had no vomiting and nausea then after patient sister suddenly started the fever Patient's denied any abdominal pain no cough no congestions No contact with any COVID No chest pain no shortness of the breath Patient's initial work-up in the ER blood pressure was low patient's lactic acid was elevated white count was also elevated and patient's LFTs also elevated with a bilirubin Patient CT of the abdomen pelvis did not show any acute cholecystitis or CBD stone ultrasound of the abdomen did not show any CBD stone Patient is have a completely benign abdomen no abdominal pain Patient's other blood work is all stable Patient received IV antibiotics vancomycin and cefepime in the ER for the sepsis protocols ER physician discussed with the surgery and myself discussed with the surgery and suggest to admit the patient and order the HIDA scan in the morning At this point will admit the patient with a sepsis work-up Also discussed with the ICU by ER physicians no need for ICU placement admit in the IMCU and continue to monitor Patient is received the 3 L of the fluid in the ER Patient's recent echocardiogram was done with EF was normal Patient's other than that when I saw in the ER alert awake oriented denied any complaint feeling better no abdominal pain No headache Past Medical History Cardiac Medical History: Reports: Hyperlipidema, Hypertension Denies: Atrial Fibrillation, Congestive Heart Failure, Myocardial Infarction Pulmonary Medical History: Denies: Asthma, Bronchitis, Chronic Obstructive Pulmonary Disease (COPD), Pneumonia, Tuberculosis Neurological Medical History: Denies: Migraine, Seizures Endocrine Medical History: Reports: Diabetes Mellitus Type 2, Hypothyroidism Denies: Diabetes Mellitus Type 1 Renal/ Medical History: Reports: Chronic Kidney Disease, Other - Renal cyst, excised Denies: End Stage Renal Disease GI Medical History: Reports: Gastroesophageal Reflux Disease Denies: Hiatal Hernia Musculoskeltal Medical History: Denies: Arthritis Psychiatric Medical History: Denies: Attention Deficit Hyperactivity Disorder, Bipolar Disorder, Depress ion Hematology: Denies: Anemia, Sickle Cell Disease Past Surgical History Past Surgical History: Reports: Other - rt nephrectomy Social History Information Source: Patient Smoking Status: Never Smoker Frequency of Alcohol Use: Social Hx Recreational Drug Use: No Hx Prescription Drug Abuse: No Family History Family History: Reviewed & Not Pertinent Parental Family History Reviewed: Yes Children Family History Reviewed: Yes Sibling(s) Family History Reviewed.: Yes Medication/Allergy Home Medications: Aspirin [Ecotrin 81 mg EC Tablet] 81 mg PO DAILY 06/25/19 Carvedilol [Coreg 12.5 mg Tablet] 12.5 mg PO Q12 06/25/19 Ferrous Sulfate [Feosol 325 mg Tablet] 325 mg PO DAILY 06/25/19 Furosemide [Lasix 20 mg Tablet] 20 mg PO MOTUWETHFR@1000 06/25/19 Glipizide [Glucotrol 5 mg Tablet] 5 mg PO BID 06/25/19 Levothyroxine Sodium [Synthroid] 200 mg PO Q6AM 06/25/19 Lisinopril [Zestril] 40 mg PO DAILY 06/25/19 Sitagliptin Phosphate [Januvia 50 mg Tablet] 100 mg PO DAILY 06/25/19 Atorvastatin Calcium [Lipitor 40 mg Tablet] 40 mg PO QHS #90 tablet 06/28/19 Clopidogrel Bisulfate [Plavix 75 mg Tablet] 75 mg PO DAILY #90 tablet 06/28/19 Empagliflozin [Jardiance] 25 mg PO DAILY #90 06/28/19 Glipizide [Glucotrol 5 mg Tablet] 10 mg PO BID #0 tablet 06/28/19 Allergies/Adverse Reactions: No Known Allergies Allergy (Verified 08/13/19 18:02) Review of Systems Constitutional: PRESENT: chills, fever(s). ABSENT: headache(s), weight gain, weight loss Eyes: ABSENT: visual disturbances Ears: ABSENT: hearing changes Cardiovascular: ABSENT: chest pain, dyspnea on exertion, edema, orthropnea, palpitations Respiratory: ABSENT: cough, hemoptysis Gastrointestinal: PRESENT: vomiting. ABSENT: abdominal pain, constipation, diarrhea, hematemesis, hematochezia, nausea Genitourinary: ABSENT: dysuria, hematuria Musculoskeletal: ABSENT: joint swelling Integumentary: ABSENT: rash, wounds Neurological: ABSENT: abnormal gait, abnormal speech, confusion, dizziness, focal weakness, syncope Psychiatric: ABSENT: anxiety, depression, homidical ideation, suicidal ideation Endocrine: ABSENT: cold intolerance, heat intolerance, menstrual abnormalities, polydipsia, polyuria Hematologic/Lymphatic: ABSENT: easy bleeding, easy bruising, lymphadenopathy Physical Exam Vital Signs: Temp Pulse Resp BP Pulse Ox 98.5 F 22 H 123/49 L 96 08/13/19 23:15 08/13/19 23:15 08/13/19 23:15 08/13/19 23:15 Intake & Output 08/12/19 08/13/19 08/14/19 06:59 06:59 06:59 Intake Total 3050 Balance 3050 Weight 100.2 kg General appearance: PRESENT: no acute distress, well-developed, well-nourished Head exam: PRESENT: atraumatic, normocephalic Eye exam: PRESENT: conjunctiva pink, EOMI, PERRLA. ABSENT: scleral icterus Ear exam: PRESENT: normal external ear exam Mouth exam: PRESENT: moist, tongue midline Neck exam: PRESENT: full ROM. ABSENT: carotid bruit, JVD, lymphadenopathy, thyromegaly Respiratory exam: PRESENT: clear to auscultation corrine Cardiovascular exam: PRESENT: RRR. ABSENT: diastolic murmur, rubs, systolic murmur Pulses: PRESENT: normal dorsalis pedis pul, +2 pedal pulses bilateral Vascular exam: PRESENT: normal capillary refill GI/Abdominal exam: PRESENT: normal bowel sounds, soft. ABSENT: distended, guarding, mass, organolmegaly, rebound, tenderness Rectal exam: PRESENT: deferred Neurological exam: PRESENT: alert, awake, oriented to person, oriented to place, oriented to time, oriented to situation, CN II-XII grossly intact. ABSENT: motor sensory deficit Psychiatric exam: PRESENT: appropriate affect, normal mood. ABSENT: homicidal ideation, suicidal ideation Skin exam: PRESENT: dry, intact, warm. ABSENT: cyanosis, rash Results Laboratory Results: 08/13/19 17:57 08/13/19 17:57 08/13/19 08/13/19 08/13/19 17:57 17:57 17:57 WBC 12.2 H RBC 4.70 Hgb 13.6 Hct 39.7 MCV 84 MCH 28.9 MCHC 34.3 RDW 14.8 H Plt Count 143 L Seg Neutrophils % Not Reportable VBG pH VBG pCO2 VBG HCO3 VBG Base Excess Sodium 135.1 L Potassium 4.1 Chloride 99 Carbon Dioxide 24 Anion Gap 12 BUN 36 H Creatinine 1.51 H Est GFR ( Amer) 56 L Glucose 241 H Lactic Acid Calcium 9.9 Total Bilirubin 4.0 H AST 223 H Alkaline Phosphatase 189 H Total Protein 7.8 Albumin 4.6 Lipase 153.9 Urine Color Urine Appearance Urine pH Ur Specific Weed Urine Protein Urine Glucose (UA) Urine Ketones Urine Blood Urine Nitrite Ur Leukocyte Esterase Urine WBC (Auto) Urine RBC (Auto) 08/13/19 08/13/19 08/13/19 18:00 19:43 19:43 WBC RBC Hgb Hct MCV MCH MCHC RDW Plt Count Seg Neutrophils % VBG pH 7.45 H VBG pCO2 33.6 L VBG HCO3 22.6 VBG Base Excess -0.9 Sodium Potassium Chloride Carbon Dioxide Anion Gap BUN Creatinine Est GFR ( Amer) Glucose Lactic Acid 2.3 H Calcium Total Bilirubin AST Alkaline Phosphatase Total Protein Albumin Lipase Urine Color YELLOW Urine Appearance CLEAR Urine pH 5.0 Ur Specific Weed 1.023 Urine Protein 30 H Urine Glucose (UA) >=500 H Urine Ketones TRACE H Urine Blood SMALL H Urine Nitrite NEGATIVE Ur Leukocyte Esterase NEGATIVE Urine WBC (Auto) 1 Urine RBC (Auto) 1 08/13/19 22:38 WBC RBC Hgb Hct MCV MCH MCHC RDW Plt Count Seg Neutrophils % VBG pH VBG pCO2 VBG HCO3 VBG Base Excess Sodium Potassium Chloride Carbon Dioxide Anion Gap BUN Creatinine Est GFR ( Amer) Glucose Lactic Acid 2.7 H Calcium Total Bilirubin AST Alkaline Phosphatase Total Protein Albumin Lipase Urine Color Urine Appearance Urine pH Ur Specific Weed Urine Protein Urine Glucose (UA) Urine Ketones Urine Blood Urine Nitrite Ur Leukocyte Esterase Urine WBC (Auto) Urine RBC (Auto) Impressions: Chest X-Ray 08/13/19 19:02 IMPRESSION: NO ACUTE RADIOGRAPHIC FINDING IN THE CHEST. Abdomen/Pelvis CT 08/13/19 21:29 IMPRESSION: Mild medical hepatic disease. Interval postsurgical change from resection of the mass lesion arising from the right kidney. The mass lesion arising from the left kidney is larger on current examination when compared to prior.. Abdomen Ultrasound 08/13/19 22:19 IMPRESSION: Limited examination demonstrating diffuse fatty infiltration of the liver. The gallbladder is contracted and not well seen. Assessment & Plan - Diagnosis (1) Fever Qualifiers: Fever type: unspecified Qualified Code(s): R50.9 - Fever, unspecified Is this a current diagnosis for this admission?: Yes Plan: Patient is unclear etiology chest x-ray is also clear urine is also clear We will send a urine culture blood cultures Patient have gallstones but no sign of any cholecystitis discussed with the surgery ordered a HIDA scan in the morning We also sent a hepatitis panel Patient COVID test in the hospital is negative Cover with the broad-spectrum IV antibiotic (2) Abnormal LFTs (liver function tests) Is this a current diagnosis for this admission?: Yes Plan: We will order the hepatitis panel and HIDA scan (3) Severe sepsis Is this a current diagnosis for this admission?: Yes Plan: Continue with IV fluids continue with IV antibiotic Discussed with the coal pipeline operator suggest no need for ICU placement right now continue to monitor in IMCU (4) Chronic kidney disease Qualifiers: Chronic kidney disease stage: stage 3 (moderate) Is this a current diagnosis for this admission?: Yes Plan: Will consider nephrology (5) Diabetes Qualifiers: Diabetes mellitus type: type 2 Diabetes mellitus skilled nursing insulin use: unspecified skilled nursing insulin use status Chronic kidney disease stage: stage 3 (moderate) Is this a current diagnosis for this admission?: Yes Plan: Continues with a sliding scale (6) Hyperlipidemia Qualifiers: Hyperlipidemia type: unspecified Is this a current diagnosis for this admission?: Yes (7) Hypertension Qualifiers: Hypertension type: essential hypertension Qualified Code(s): I10 - Essential (primary) hypertension Is this a current diagnosis for this admission?: Yes (8) Renal mass Is this a current diagnosis for this admission?: Yes Plan: Patient is currently following with the [facility] for that - Time Time Spent: 50 to 70 Minutes Medications reviewed and adjusted accordingly: Yes Anticipated discharge: Home Within: Other - Inpatient Certification Based on my medical assessment, after consideration of the patient's comorbidities, presenting symptoms, or acuity I expect that the services needed warrant INPATIENT care.: Yes I certify that my determination is in accordance with my understanding of Medicare's requirements for reasonable and necessary INPATIENT services [42 CFR 412.3e].: Yes Medical Necessity: Significant Comorbidiites Make Outpatient Treatment Too Risky, Need For IV Fluids, Need For Continuous Telemetry Monitoring, Need for IV Antibiotics Post Hospital Care: D/C [facility] [employer] Specialist Documentation - Plan Summary Plan Summary: Admit the patient in IMCU IV fluids IV antibiotic
[2019-08-14] MEDS ORDERED: VANCOMYCIN HCL INJ 1000 MG VIAL IV PRN (00:24)
[2019-08-14] MEDS ORDERED: VANCOMYCIN HCL 1,000 MG in DEXTROSE 5%-WATER 250 ML IV ONE (00:30)
[2019-08-14] MEDS ORDERED: PANTOPRAZOLE SODIUM 40 MG VIAL IV ONE (00:30)
[2019-08-14 07:03] LABS: HEMATOCRIT 33.9 % (37.9-51.0); HEMOGLOBIN 11.7 g/dL (13.5-17.0); MEAN CORPUSCULAR HGB CONC 34.6 g/dL (32.0-36.0); MEAN CORPUSCULAR VOLUME 84 fl (80-97); PLATELET COUNT 127 10^3/uL (150-450); RED BLOOD COUNT 4.04 10^6/uL (4.35-5.55); RED CELL DISTRIBUTION WIDTH 15.1 % (11.5-14.0); WHITE BLOOD COUNT 12.4 10^3/uL (4.0-10.5)
[2019-08-14 07:18] LABS: ABSOLUTE LYMPHOCYTES# (MANUAL) 0.4 10^3/uL (0.5-4.7); ABSOLUTE MONOCYTES # (MANUAL) 0.2 10^3/uL (0.1-1.4); ANISOCYTOSIS SLIGHT; BAND NEUTROPHILS % (MANUAL) 1 % (3-5); BASOPHILS % (MANUAL) 0 % (0-2); EOSINOPHILS % (MANUAL) 1 % (0-6); LYMPHOCYTES % (MANUAL) 3 % (13-45); MONOCYTES % (MANUAL) 2 % (3-13); PLATELET COMMENT DECREASED; SEGMENTED NEUTROPHILS % (MAN) 93 % (42-78); TOTAL CELLS COUNTED 100
[2019-08-14 07:32] LABS: ALBUMIN 3.4 g/dL (3.5-5.0); ALKALINE PHOSPHATASE 152 U/L (38-126); ANION GAP 8 (5-19); ASPARTATE AMINO TRANSFERASE 264 U/L (17-59); BILIRUBIN,DIRECT 2.9 mg/dL (0.0-0.4); BLOOD UREA NITROGEN 34 mg/dL (7-20); CALCIUM 8.9 mg/dL (8.4-10.2); CARBON DIOXIDE 26 mmol/L (22-30); CHLORIDE 100 mmol/L (98-107); GLUCOSE 143 mg/dL (75-110); POTASSIUM 3.7 mmol/L (3.6-5.0); TOTAL PROTEIN 6.2 g/dL (6.3-8.2)
[2019-08-14] MEDS: CEFEPIME HCL 2 GM in DEXTROSE 5%-WATER 50 ML IV SCH ×2 (09:55→22:16)
[2019-08-14] MEDS: PANTOPRAZOLE SODIUM 40 MG VIAL IV SCH ×2 (10:00→22:17)
[2019-08-14] MEDS ORDERED: CEFEPIME 2 GM/D5W RTU 2 GM/50 ML RTUPB IV SCH (10:00)
[2019-08-14] MEDS: INSULIN LISPRO 100 UNIT/ML 3 ML VIAL SUBCUT SCH ×4 (10:01→22:11)
[2019-08-14] MEDS ORDERED: NORMAL SALINE 1000 ML 1,000 ML IV PRN (10:01)
[2019-08-14] MEDS: ENOXAPARIN SODIUM INJ 30 MG/0.3 ML DISP.SYRIN SUBCUT SCH (10:02)
--- NOTE | 2019-08-14 12:09 | PDOC PROGRESS REPORT ---
Subjective Progress Note for:: 08/14/19 Subjective:: Patient is feeling much better Patient's denied any chest pain no short of breath No abdominal pain no nausea no vomiting Patient's having no fever overnight Patient's COVID test is negative Since blood culture is positive for gram-negative organism currently cover with the IV cefepime and vancomycin Reason For Visit: SEPSIS, GALLSTONE Physical Exam Vital Signs: Temp Pulse Resp BP Pulse Ox 100.0 F 73 18 128/37 H 95 08/14/19 11:31 08/14/19 11:31 08/14/19 11:31 08/14/19 11:31 08/14/19 11:31 Intake & Output 08/13/19 08/14/19 08/15/19 06:59 06:59 06:59 Intake Total 4550 610 Balance 4550 610 Weight 100 kg General appearance: PRESENT: no acute distress, well-developed, well-nourished Head exam: PRESENT: atraumatic, normocephalic Eye exam: PRESENT: conjunctiva pink, EOMI, PERRLA. ABSENT: scleral icterus Ear exam: PRESENT: normal external ear exam Mouth exam: PRESENT: moist, tongue midline Neck exam: PRESENT: full ROM. ABSENT: carotid bruit, JVD, lymphadenopathy, thyromegaly Respiratory exam: PRESENT: clear to auscultation corrine Cardiovascular exam: PRESENT: RRR. ABSENT: diastolic murmur, rubs, systolic murmur Pulses: PRESENT: normal dorsalis pedis pul, +2 pedal pulses bilateral Vascular exam: PRESENT: normal capillary refill GI/Abdominal exam: PRESENT: normal bowel sounds, soft. ABSENT: distended, guarding, mass, organolmegaly, rebound, tenderness Rectal exam: PRESENT: deferred Musculoskeletal exam: PRESENT: ambulatory Neurological exam: PRESENT: alert, awake, oriented to person, oriented to place, oriented to time, oriented to situation, CN II-XII grossly intact. ABSENT: motor sensory deficit Psychiatric exam: PRESENT: appropriate affect, normal mood. ABSENT: homicidal ideation, suicidal ideation Skin exam: PRESENT: dry, intact, warm. ABSENT: cyanosis, rash Results Laboratory Results: 08/14/19 06:40 08/14/19 06:40 08/13/19 08/13/19 08/13/19 17:57 17:57 17:57 WBC 12.2 H RBC 4.70 Hgb 13.6 Hct 39.7 MCV 84 MCH 28.9 MCHC 34.3 RDW 14.8 H Plt Count 143 L Seg Neutrophils % Not Reportable VBG pH VBG pCO2 VBG HCO3 VBG Base Excess Sodium 135.1 L Potassium 4.1 Chloride 99 Carbon Dioxide 24 Anion Gap 12 BUN 36 H Creatinine 1.51 H Est GFR ( Amer) 56 L Glucose 241 H Lactic Acid Calcium 9.9 Magnesium Total Bilirubin 4.0 H AST 223 H Alkaline Phosphatase 189 H Total Protein 7.8 Albumin 4.6 Lipase 153.9 Urine Color Urine Appearance Urine pH Ur Specific [place] Urine Protein Urine Glucose (UA) Urine Ketones Urine Blood Urine Nitrite Ur Leukocyte Esterase Urine WBC (Auto) Urine RBC (Auto) 08/13/19 08/13/19 08/13/19 18:00 19:43 19:43 WBC RBC Hgb Hct MCV MCH MCHC RDW Plt Count Seg Neutrophils % VBG pH 7.45 H VBG pCO2 33.6 L VBG HCO3 22.6 VBG Base Excess -0.9 Sodium Potassium Chloride Carbon Dioxide Anion Gap BUN Creatinine Est GFR ( Amer) Glucose Lactic Acid 2.3 H Calcium Magnesium Total Bilirubin AST Alkaline Phosphatase Total Protein Albumin Lipase Urine Color YELLOW Urine Appearance CLEAR Urine pH 5.0 Ur Specific [place] 1.023 Urine Protein 30 H Urine Glucose (UA) >=500 H Urine Ketones TRACE H Urine Blood SMALL H Urine Nitrite NEGATIVE Ur Leukocyte Esterase NEGATIVE Urine WBC (Auto) 1 Urine RBC (Auto) 1 08/13/19 08/14/19 08/14/19 22:38 01:41 06:40 WBC 12.4 H RBC 4.04 L Hgb 11.7 L Hct 33.9 L MCV 84 MCH 29.0 MCHC 34.6 RDW 15.1 H Plt Count 127 L Seg Neutrophils % Not Reportable VBG pH VBG pCO2 VBG HCO3 VBG Base Excess Sodium Potassium Chloride Carbon Dioxide Anion Gap BUN Creatinine Est GFR ( Amer) Glucose Lactic Acid 2.7 H 2.1 Calcium Magnesium Total Bilirubin AST Alkaline Phosphatase Total Protein Albumin Lipase Urine Color Urine Appearance Urine pH Ur Specific [place] Urine Protein Urine Glucose (UA) Urine Ketones Urine Blood Urine Nitrite Ur Leukocyte Esterase Urine WBC (Auto) Urine RBC (Auto) 08/14/19 06:40 WBC RBC Hgb Hct MCV MCH MCHC RDW Plt Count Seg Neutrophils % VBG pH VBG pCO2 VBG HCO3 VBG Base Excess Sodium 133.8 L Potassium 3.7 Chloride 100 Carbon Dioxide 26 Anion Gap 8 BUN 34 H Creatinine 1.49 H Est GFR ( Amer) 57 L Glucose 143 H Lactic Acid Calcium 8.9 Magnesium 1.6 Total Bilirubin 4.0 H AST 264 H Alkaline Phosphatase 152 H Total Protein 6.2 L Albumin 3.4 L Lipase 119.5 Urine Color Urine Appearance Urine pH Ur Specific [place] Urine Protein Urine Glucose (UA) Urine Ketones Urine Blood Urine Nitrite Ur Leukocyte Esterase Urine WBC (Auto) Urine RBC (Auto) Impressions: Chest X-Ray 08/13/19 19:02 IMPRESSION: NO ACUTE RADIOGRAPHIC FINDING IN THE CHEST. Abdomen/Pelvis CT 08/13/19 21:29 IMPRESSION: Mild medical hepatic disease. Interval postsurgical change from resection of the mass lesion arising from the right kidney. The mass lesion arising from the left kidney is larger on current examination when compared to prior.. Abdomen Ultrasound 08/13/19 22:19 IMPRESSION: Limited examination demonstrating diffuse fatty infiltration of the liver. The gallbladder is contracted and not well seen. Assessment & Plan - Diagnosis (1) Fever Qualifiers: Fever type: unspecified Qualified Code(s): R50.9 - Fever, unspecified Is this a current diagnosis for this admission?: Yes Plan: Unclear etiology is positive blood cultures with gram-negative organism continues IV cefepime and IV vancomycin until the sensitivity back Patient is currently evaluated with the gallstones related any issues seen by the general surgery order the HIDA scan (2) Abnormal LFTs (liver function tests) Is this a current diagnosis for this admission?: Yes Plan: Patient have a HIDA scan pending (3) Severe sepsis Is this a current diagnosis for this admission?: Yes Plan: Cover with the broad-spectrum IV antibiotics unclear source at this point will wait for the culture and sensitivity (4) Chronic kidney disease Qualifiers: Chronic kidney disease stage: stage 3 (moderate) Is this a current diagnosis for this admission?: Yes Plan: We will consult the nephrology (5) Diabetes Qualifiers: Diabetes mellitus type: type 2 Diabetes mellitus terminal gauger insulin use: unspecified terminal gauger insulin use status Chronic kidney disease stage: stage 3 (moderate) Is this a current diagnosis for this admission?: Yes Plan: We currently hold all oral medications continues a sliding scale (6) Hyperlipidemia Qualifiers: Hyperlipidemia type: unspecified Is this a current diagnosis for this admission?: Yes Plan: Due to the elevated LFT we currently hold the statin (7) Hypertension Qualifiers: Hypertension type: essential hypertension Qualified Code(s): I10 - Essential (primary) hypertension Is this a current diagnosis for this admission?: Yes Plan: Patient is currently hypotensive to hold the blood pressure medications (8) Renal mass Is this a current diagnosis for this admission?: Yes Plan: Patient is currently see [facility] for that (9) Diastolic congestive heart failure Qualifiers: Heart failure chronicity: chronic Qualified Code(s): I50.32 - Chronic diastolic (congestive) heart failure Is this a current diagnosis for this admission?: Yes Plan: Patient's last echocardiogram was all stable we will asked the patient's cardiology to follow see patients need any echocardiogram if we not find the source of the infections - Time Time Spent with patient: 25-34 minutes Level of Care: IMCU Medications reviewed and adjusted accordingly: Yes Anticipated discharge: Home Within: Other - Plan Summary Plan Summary: Continues to IV antibiotics very extensive discussions with the patient and his regarding the patient's current conditions
--- NOTE | 2019-08-14 12:40 | EKG REPORT ---
SEVERITY:- ABNORMAL ECG - SINUS RHYTHM NONSPECIFIC IVCD WITH LAD LVH WITH SECONDARY REPOLARIZATION ABNORMALITY : Confirmed by: Pro Parkinson 14-Aug-2019 12:39:35
--- NOTE | 2019-08-14 12:54 | Progress Note ---
Provider Note Provider Note: Patient was seen while imaging HIDA scan imaging in the nuclear lab. He was noted to be comfortable. He came in with fever and chills. He is denying any respiratory distress, chest pain. He has history of gallstones. Patient 2D echo from 2 months ago was reviewed and was noted to be relatively unremarkable showing normal LVEF. Patient claims he had a stress test in my office which she says was pretty unremarkable as well. I have to check this out with my office notes. At this point patient is comfortable. He is denying any chest pain, shortness of breath. EKG showing mild nonspecific T wave inversion. Patient did tell me that if she is to have any gallbladder surgery he would like to have it done at [place] because of his family support there. At this point feel that if surgery is needed, he is an acceptable candidate. However I believe that patient mainly has sepsis problems. Sepsis can cause liver function abnormalities. Agree with broad-spectrum antibiotics. Awaiting results of HIDA scan. Will continue to follow. Have ordered further EKGs to follow due to nonspecific T wave abnormalities. Discussed with Dr. Drake.
--- NOTE | 2019-08-14 15:07 | RADIOLOGY REPORT (SQ) ---
EXAM DESCRIPTION: NM HIDA SCAN IMAGES COMPLETED DATE/TIME: 08/14/2019 2:54 pm REASON FOR STUDY: fever, elevated LFTs, eval for cholecystitis COMPARISON: CT of the abdomen pelvis without contrast from 08/13/2019. RADIONUCLIDE AND DOSE: DOSAGE RADIONUCLIDE: 4.68 millicuries Tc99m Mebrofenin. DOSAGE MORPHINE: N/A. The route of agent administration: Intravenous TECHNIQUE: Serial static planar images of the right upper quadrant were obtained up to 60 minutes fo llowing the injection of the radionuclide. At 60 minutes an additional view of the right upper quadr ant in the right lateral projection was obtained. Since no activity was noted within the gallbladder the patient was re-imaged at 120 minutes following the injection of the radionuclide. LIMITATIONS: None. FINDINGS: There is homogeneous uptake of the radiotracer by the hepatic parenchyma without a photope tiffanie defect. Activity is noted within the lumen of the bowel within 30 minutes of injection of the ra dionuclide. No activity was noted within the lumen of the gallbladder at 60 minutes. As detailed ab ove, at 120 minutes the patient was re-imaged and again no activity was noted within the lumen of the gallbladder. IMPRESSION: Scintigraphic knee findings as detailed above are concerning for an acute cholecystitis. TECHNICAL DOCUMENTATION: JOB ID: [id number] 2010 [employer]- All Rights Reserved Reading location - IP/workstation name: [email or web address]
--- NOTE | 2019-08-14 15:25 | PDOC TRANSFER SUMMARY ---
General Admission Date/PCP: 08/13/19 23:49 JIN KENYON MD Admission Date: 08/13/19 Transfer Date: 08/14/19 Accepting Facility: [facility] Resuscitation Status: Full Code - Transfer Diagnosis (1) Fever Is this a current diagnosis for this admission?: Yes (2) Abnormal LFTs (liver function tests) Is this a current diagnosis for this admission?: Yes (3) Severe sepsis Is this a current diagnosis for this admission?: Yes (4) Chronic kidney disease Is this a current diagnosis for this admission?: Yes (5) Diabetes Is this a current diagnosis for this admission?: Yes (6) Hyperlipidemia Is this a current diagnosis for this admission?: Yes (7) Hypertension Is this a current diagnosis for this admission?: Yes (8) Renal mass Is this a current diagnosis for this admission?: Yes (9) Diastolic congestive heart failure Is this a current diagnosis for this admission?: Yes (10) Gallstone Is this a current diagnosis for this admission?: Yes - Transfer Medications Home Medications: Aspirin [Ecotrin 81 mg EC Tablet] 81 mg PO DAILY 08/14/19 Atorvastatin Calcium [Lipitor 40 mg Tablet] 40 mg PO QHS 08/14/19 Carvedilol [Coreg 12.5 mg Tablet] 12.5 mg PO Q12 08/14/19 Clopidogrel Bisulfate [Plavix 75 mg Tablet] 75 mg PO DAILY 08/14/19 Empagliflozin [Jardiance] 25 mg PO DAILY 08/14/19 Furosemide [Lasix 20 mg Tablet] 20 mg PO MOTUWETHFR@1000 08/14/19 Glipizide [Glucotrol 5 mg Tablet] 5 mg PO BID 08/14/19 Levothyroxine Sodium [Synthroid] 200 mcg PO Q6AM 08/14/19 Lisinopril [Zestril] 40 mg PO DAILY 08/14/19 Sitagliptin Phosphate [Januvia 50 mg Tablet] 100 mg PO DAILY 08/14/19 Transfer Medications: Current Medications Acetaminophen (Tylenol 325 Mg Tablet) 650 mg PO Q4HP PRN PRN Reason: FOR PAIN OR TEMP Stop: 09/12/19 23:53 Albuterol/Ipratropium (Duoneb 3 Ml Ampul) 3 ml NEB RTQ6HP PRN PRN Reason: SHORTNESS OF BREATH Stop: 09/12/19 23:53 Dextrose (Dextrose Inj 50% Syringe (25 Gm/50 Ml)) 12.5 gm IV PRN PRN; Protocol PRN Reason: FOR BG 50-69 IN ALERT PATIENT Stop: 09/13/19 00:09 Dextrose (Dextrose Inj 50% Syringe (25 Gm/50 Ml)) 25 gm IV PRN PRN; Protocol PRN Reason: PER PROTOCOL Stop: 09/13/19 00:09 Enoxaparin Sodium (Lovenox Inj 30 Mg/0.3 Ml Disp.Syrin) 30 mg SUBCUT DAILY [facility] Stop: 09/13/19 09:59 Last Admin: 08/14/19 10:02 Dose: 30 mg Documented by: Glucagon (Glucagen Inj 1 Mg Vial) 1 mg IM PRN PRN; Protocol PRN Reason: Evaluate for BG < 70 Stop: 09/13/19 00:09 Glucose (Glutose 40% Gel 15 Gm Tube) 15 gm PO PRN PRN; Protocol PRN Reason: FOR BG 50-69 IN ALERT PATIENT Stop: 09/13/19 00:09 Glucose (Glutose 40% Gel 15 Gm Tube) 30 gm PO PRN PRN; Protocol PRN Reason: FOR BG < 50 IN ALERT PATIENT Stop: 09/13/19 00:09 Cefepime HCl 2 gm/ Dextrose 50 mls @ 100 mls/hr IV Q12 [facility] Stop: 08/21/19 09:59 Last Admin: 08/14/19 09:55 Dose: 50 mls/hr, 50 mls/hr Documented by: Vancomycin HCl 1,500 mg/ (Dextrose) 250 mls @ 166.667 mls/hr IV QPM [facility] Stop: 08/21/19 17:59 Sodium Chloride (Nacl 0.9% 1000 Ml Iv Soln) 1,000 mls @ 100 mls/hr IV CONTINUOUS PRN PRN Reason: THIS MED IS NOT "PRN" Stop: 09/12/19 23:53 Insulin Human Lispro (Humalog Insulin 100 Unit/1 Ml 3 Ml Vial) 0 - 12 unit SUBCUT ACHS [facility]; Protocol Stop: 09/13/19 07:59 Last Admin: 08/14/19 14:09 Dose: Not Given Documented by: Levothyroxine Sodium (Synthroid 0.1 Mg Tablet) 0.2 mg PO Q6AM [facility] Stop: 07/06/20 05:59 Pantoprazole Sodium (Protonix Iv Inj 40 Mg Vial) 40 mg IV Q12 [facility] Stop: 08/21/19 09:59 Last Admin: 08/14/19 10:00 Dose: Not Given Documented by: - Allergies Allergies/Adverse Reactions: No Known Allergies Allergy (Verified 08/13/19 18:02) Hospital Course Hospital Course: Is a 69-year-old male presented emergency department with a fever 103 and the patient's hypotensive with elevated LFT Patient is admitting in the hospital with IV fluid IV antibiotic patient have a abdominal CT scan of the abdomen pelvis was done which is consistent with a gallstone but not cholecystitis Ultrasound of the abdomen was done which is all stable seen by the general surgery order the HIDA scan questionable CBD stones Patient's bilirubin is elevated LFTs elevated which is completely normal last month Patient's to have a history of the renal mass bilaterally scheduled for the left renal mass surgery at [place] was 1 done partial nephrectomy on the right side in March Patient's also have a recently a stroke in June which currently all stable Patient is seen by the cardiology Dr. Parkinson have echocardiogram done last month was all stable currently having no issues Is currently on IV cefepime and the IV vancomycin His blood culture is gram-negative organisms patient's other x-rays all stable except the gallstone which most likely a consistent with the source of the infections Patient's COVID test is all negative Patient's family preferred to go to the surgical intervention at [place] again and discussed with the patient's and the family call the [facility] for that Physical Exam Vital Signs: Temp Pulse Resp BP Pulse Ox 100.0 F 73 18 128/37 H 95 08/14/19 11:31 08/14/19 11:31 08/14/19 11:31 08/14/19 11:31 08/14/19 11:31 Intake & Output 08/13/19 08/14/19 08/15/19 06:59 06:59 06:59 Intake Total 4550 610 Balance 4550 610 Weight 100 kg General appearance: PRESENT: no acute distress, well-developed, well-nourished Head exam: PRESENT: atraumatic, normocephalic Eye exam: PRESENT: conjunctiva pink, EOMI, PERRLA. ABSENT: scleral icterus Ear exam: PRESENT: normal external ear exam Mouth exam: PRESENT: moist, tongue midline Neck exam: ABSENT: carotid bruit, JVD, lymphadenopathy, thyromegaly Respiratory exam: PRESENT: clear to auscultation corrine. ABSENT: rales, rhonchi, wheezes Cardiovascular exam: PRESENT: RRR. ABSENT: diastolic murmur, rubs, systolic murmur Pulses: PRESENT: normal dorsalis pedis pul Vascular exam: PRESENT: normal capillary refill GI/Abdominal exam: PRESENT: normal bowel sounds, soft. ABSENT: distended, guarding, mass, organolmegaly, rebound, tenderness Rectal exam: PRESENT: deferred Extremities exam: PRESENT: full ROM. ABSENT: calf tenderness, clubbing, pedal edema Neurological exam: PRESENT: alert, awake, oriented to person, oriented to place, oriented to time, oriented to situation, CN II-XII grossly intact. ABSENT: motor sensory deficit Psychiatric exam: PRESENT: appropriate affect, normal mood. ABSENT: homicidal ideation, suicidal ideation Skin exam: PRESENT: dry, intact, warm. ABSENT: cyanosis, rash Results Laboratory Results: 08/14/19 06:40 08/14/19 06:40 08/13/19 08/13/19 08/13/19 17:57 17:57 17:57 WBC 12.2 H RBC 4.70 Hgb 13.6 Hct 39.7 MCV 84 MCH 28.9 MCHC 34.3 RDW 14.8 H Plt Count 143 L Seg Neutrophils % Not Reportable VBG pH VBG pCO2 VBG HCO3 VBG Base Excess Sodium 135.1 L Potassium 4.1 Chloride 99 Carbon Dioxide 24 Anion Gap 12 BUN 36 H Creatinine 1.51 H Est GFR ( Amer) 56 L Glucose 241 H Lactic Acid Calcium 9.9 Magnesium Total Bilirubin 4.0 H AST 223 H Alkaline Phosphatase 189 H Total Protein 7.8 Albumin 4.6 Lipase 153.9 Urine Color Urine Appearance Urine pH Ur Specific [place] Urine Protein Urine Glucose (UA) Urine Ketones Urine Blood Urine Nitrite Ur Leukocyte Esterase Urine WBC (Auto) Urine RBC (Auto) 08/13/19 08/13/19 08/13/19 18:00 19:43 19:43 WBC RBC Hgb Hct MCV MCH MCHC RDW Plt Count Seg Neutrophils % VBG pH 7.45 H VBG pCO2 33.6 L VBG HCO3 22.6 VBG Base Excess -0.9 Sodium Potassium Chloride Carbon Dioxide Anion Gap BUN Creatinine Est GFR ( Amer) Glucose Lactic Acid 2.3 H Calcium Magnesium Total Bilirubin AST Alkaline Phosphatase Total Protein Albumin Lipase Urine Color YELLOW Urine Appearance CLEAR Urine pH 5.0 Ur Specific [place] 1.023 Urine Protein 30 H Urine Glucose (UA) >=500 H Urine Ketones TRACE H Urine Blood SMALL H Urine Nitrite NEGATIVE Ur Leukocyte Esterase NEGATIVE Urine WBC (Auto) 1 Urine RBC (Auto) 1 08/13/19 08/14/19 08/14/19 22:38 01:41 06:40 WBC 12.4 H RBC 4.04 L Hgb 11.7 L Hct 33.9 L MCV 84 MCH 29.0 MCHC 34.6 RDW 15.1 H Plt Count 127 L Seg Neutrophils % Not Reportable VBG pH VBG pCO2 VBG HCO3 VBG Base Excess Sodium Potassium Chloride Carbon Dioxide Anion Gap BUN Creatinine Est GFR ( Amer) Glucose Lactic Acid 2.7 H 2.1 Calcium Magnesium Total Bilirubin AST Alkaline Phosphatase Total Protein Albumin Lipase Urine Color Urine Appearance Urine pH Ur Specific [place] Urine Protein Urine Glucose (UA) Urine Ketones Urine Blood Urine Nitrite Ur Leukocyte Esterase Urine WBC (Auto) Urine RBC (Auto) 08/14/19 06:40 WBC RBC Hgb Hct MCV MCH MCHC RDW Plt Count Seg Neutrophils % VBG pH VBG pCO2 VBG HCO3 VBG Base Excess Sodium 133.8 L Potassium 3.7 Chloride 100 Carbon Dioxide 26 Anion Gap 8 BUN 34 H Creatinine 1.49 H Est GFR ( Amer) 57 L Glucose 143 H Lactic Acid Calcium 8.9 Magnesium 1.6 Total Bilirubin 4.0 H AST 264 H Alkaline Phosphatase 152 H Total Protein 6.2 L Albumin 3.4 L Lipase 119.5 Urine Color Urine Appearance Urine pH Ur Specific [place] Urine Protein Urine Glucose (UA) Urine Ketones Urine Blood Urine Nitrite Ur Leukocyte Esterase Urine WBC (Auto) Urine RBC (Auto) Impressions: Chest X-Ray 08/13/19 19:02 IMPRESSION: NO ACUTE RADIOGRAPHIC FINDING IN THE CHEST. Abdomen/Pelvis CT 08/13/19 21:29 IMPRESSION: Mild medical hepatic disease. Interval postsurgical change from resection of the mass lesion arising from the right kidney. The mass lesion arising from the left kidney is larger on current examination when compared to prior.. Abdomen Ultrasound 08/13/19 22:19 IMPRESSION: Limited examination demonstrating diffuse fatty infiltration of the liver. The gallbladder is contracted and not well seen. Plan Time Spent: Greater than 30 Minutes - Transfer the patient when the bed available
--- NOTE | 2019-08-14 15:27 | PDOC CONSULTATION ---
Consultation Consult Date: 08/14/19 Provider Consulted: CHARANJIT SEYMOUR Consult reason:: CKD History of Present Illness Admission Date/PCP: 08/13/19 23:49 JIN DRAKE MD History of Present Illness: TRAE GUZMAN is a 69 year old male with history of diabetes mellitus type 2, hypertension, hyperlipidemia, and bilateral renal mass admitted yesterday because of acute onset of high fever. Patient had one episode of vomiting while at home after drinking a lot of water prior to being brought to the emergency room but nothing since. He denied any abdominal pain and current nausea or vomiting. He denied any cough, congestion, shortness of breath, no recent travel. His checks x-ray was unremarkable. A noncontrast abdominal and pelvis CT scan showed mild medical hepatic disease. It also notes resection of the mass lesion from the right kidney and a mass lesion arising from the left kidney which is larger about 4.2 cm compared to previous of 3.8 cm. Abdominal ultrasound was also done which showed fatty infiltration of the liver and the gallbladder was contracted but not well seen. The right kidney measures 9.8 cm and there was no hydronephrosis. Patient also presented with elevated liver enzymes and alkaline phosphatase. HIDA scan is a scheduled today for further evaluation. Patient had a blood culture which came out to be positive for gram- negative rods x2 bottles. Patient was started on IV cefepime and vancomycin. In terms of the patient's kidney function he presented with a BUN of 36, creatinine 1.51 with EGFR 46. Today he has a BUN of 34, creatinine 1.49 with EGFR 47. Last June 28, 2019 had a BUN of 26, creatinine 1.17 with EGFR greater than 60. Furthermore his creatinine ranges anywhere between 1.17-1.36 with EGFR 55-56 for the last few months. Patient was diagnosed to have bilateral renal mass between December to January 2019 and subsequently was evaluated by urologist in [place], Dr. Jesús Zayas according to patient. He underwent right partial nephrectomy with excision of the right kidney mass. He still has the mass in the left kidney. He said that he was told that the lesion on the right was benign but we do not have any records to support that. He has an appointment with his urologist on August 30. Currently denies any flank pains, microhematuria nor any problems with urination. He said he is making good amount of urine. His urine output is not being quantified at the moment. His urine culture is pending. He was given IV fluids upon admission of about 4 L. Currently he actually feels fine. Past Medical History Cardiac Medical History: Reports: Hyperlipidemia, Hypertension-primary Endocrine Medical History: Reports: Diabetes Mellitus Type 2, Hypothyroidism Renal/ Medical History: Reports: Other - Bilateral renal masses, status post right partial nephrectomy with excision GI Medical History: Reports: Gastroesophageal Reflux Disease Past Surgical History Past Surgical History: Reports: Herniorrhaphy - Bilateral inguinal, Nephrectomy - Right partial for renal mass, Tonsillectomy - With adenoidectomy Social History Information Source: Patient Lives with: Spouse/Significant other Smoking Status: Never Smoker Frequency of Alcohol Use: Social Hx Recreational Drug Use: No Hx Prescription Drug Abuse: No Family History Family History: Hypertension - Sisters, Thyroid Disfunction - Sisters, Other - Daughter had aortic valve replacement Parental Family History Reviewed: Yes Children Family History Reviewed: Yes Sibling(s) Family History Reviewed.: Yes Medication/Allergy Home Medications: Aspirin [Ecotrin 81 mg EC Tablet] 81 mg PO DAILY 08/14/19 Atorvastatin Calcium [Lipitor 40 mg Tablet] 40 mg PO QHS 08/14/19 Carvedilol [Coreg 12.5 mg Tablet] 12.5 mg PO Q12 08/14/19 Clopidogrel Bisulfate [Plavix 75 mg Tablet] 75 mg PO DAILY 08/14/19 Empagliflozin [Jardiance] 25 mg PO DAILY 08/14/19 Furosemide [Lasix 20 mg Tablet] 20 mg PO MOTUWETHFR@1000 08/14/19 Glipizide [Glucotrol 5 mg Tablet] 5 mg PO BID 08/14/19 Levothyroxine Sodium [Synthroid] 200 mcg PO Q6AM 08/14/19 Lisinopril [Zestril] 40 mg PO DAILY 08/14/19 Sitagliptin Phosphate [Januvia 50 mg Tablet] 100 mg PO DAILY 08/14/19 Allergies/Adverse Reactions: No Known Allergies Allergy (Verified 08/13/19 18:02) Review of Systems All systems: reviewed and no additional remarkable complaints except as stated Review of Systems: Constitutional: ABSENT: chills, fatigue, headache(s), weight gain, weight loss; admits fever Eyes: ABSENT: visual disturbances Ears: ABSENT: hearing changes Cardiovascular: ABSENT: chest pain, dyspnea on exertion, edema, orthropnea, pal pitations Respiratory: ABSENT: cough, dyspnea, hemoptysis Gastrointestinal: ABSENT: abdominal pain, constipation, diarrhea, hematemesis, hematochezia, nausea, vomiting Genitourinary: ABSENT: dysuria, hematuria Musculoskeletal: ABSENT: joint swelling Integumentary: ABSENT: rash, wounds Neurological: ABSENT: abnormal gait, abnormal speech, confusion, dizziness, focal weakness, numbness, syncope Psychiatric: ABSENT: anxiety, depression Endocrine: ABSENT: cold intolerance, heat intolerance, polydipsia, polyuria Hematologic/Lymphatic: ABSENT: easy bleeding, easy bruising, lymphadenopathy Physical Exam Vital Signs: Temp Pulse Resp BP Pulse Ox 100.0 F 73 18 128/37 H 95 08/14/19 11:31 08/14/19 11:31 08/14/19 11:31 08/14/19 11:31 08/14/19 11:31 Intake & Output 08/13/19 08/14/19 08/15/19 06:59 06:59 06:59 Intake Total 4550 610 Balance 4550 610 Weight 100 kg Exam: General appearance: No acute distress, cooperative, well-developed, well- nourished Head exam: PRESENT: atraumatic, normocephalic Eye exam: PRESENT: Conjunctiva slightly pale, EOMI, PERRLA. ABSENT: conjunctival injection, scleral icterus Mouth exam: PRESENT: moist, neck supple, tongue midline Neck exam: PRESENT: full ROM. ABSENT: carotid bruit, JVD, lymphadenopathy, thyromegaly Respiratory exam: PRESENT: clear to auscultation bilaterally. ABSENT: rales, rhonchi, stridor, wheezes Cardiovascular exam: PRESENT: RRR, +S1, +S2. ABSENT: systolic murmur Pulses: PRESENT: normal radial pulses, normal dorsalis pedis pulses GI/Abdominal exam: PRESENT: normal bowel sounds, soft. ABSENT: guarding, mass, tenderness Rectal exam: Deferred Extremities exam: PRESENT: full ROM. ABSENT: calf tenderness, pedal edema Musculoskeletal: PRESENT: full ROM. ABSENT: deformity Neurological exam: PRESENT: alert, Awake, Oriented to person, Oriented to place, Oriented to time, reflexes normal, CN II-XII grossly intact. ABSENT: motor sensory deficit Psychiatric exam: PRESENT: appropriate affect, normal mood. ABSENT: homicidal ideation, suicidal ideation Skin exam: PRESENT: intact, dry, warm. ABSENT: rash Results Laboratory Results: 08/14/19 06:40 08/14/19 06:40 08/13/19 08/13/19 08/13/19 17:57 17:57 17:57 WBC 12.2 H RBC 4.70 Hgb 13.6 Hct 39.7 MCV 84 MCH 28.9 MCHC 34.3 RDW 14.8 H Plt Count 143 L Seg Neutrophils % Not Reportable VBG pH VBG pCO2 VBG HCO3 VBG Base Excess Sodium 135.1 L Potassium 4.1 Chloride 99 Carbon Dioxide 24 Anion Gap 12 BUN 36 H Creatinine 1.51 H Est GFR ( Amer) 56 L Glucose 241 H Lactic Acid Calcium 9.9 Magnesium Total Bilirubin 4.0 H AST 223 H Alkaline Phosphatase 189 H Total Protein 7.8 Albumin 4.6 Lipase 153.9 Urine Color Urine Appearance Urine pH Ur Specific [place] Urine Protein Urine Glucose (UA) Urine Ketones Urine Blood Urine Nitrite Ur Leukocyte Esterase Urine WBC (Auto) Urine RBC (Auto) 08/13/19 08/13/19 08/13/19 18:00 19:43 19:43 WBC RBC Hgb Hct MCV MCH MCHC RDW Plt Count Seg Neutrophils % VBG pH 7.45 H VBG pCO2 33.6 L VBG HCO3 22.6 VBG Base Excess -0.9 Sodium Potassium Chloride Carbon Dioxide Anion Gap BUN Creatinine Est GFR ( Amer) Glucose Lactic Acid 2.3 H Calcium Magnesium Total Bilirubin AST Alkaline Phosphatase Total Protein Albumin Lipase Urine Color YELLOW Urine Appearance CLEAR Urine pH 5.0 Ur Specific [place] 1.023 Urine Protein 30 H Urine Glucose (UA) >=500 H Urine Ketones TRACE H Urine Blood SMALL H Urine Nitrite NEGATIVE Ur Leukocyte Esterase NEGATIVE Urine WBC (Auto) 1 Urine RBC (Auto) 1 08/13/19 08/14/19 08/14/19 22:38 01:41 06:40 WBC 12.4 H RBC 4.04 L Hgb 11.7 L Hct 33.9 L MCV 84 MCH 29.0 MCHC 34.6 RDW 15.1 H Plt Count 127 L Seg Neutrophils % Not Reportable VBG pH VBG pCO2 VBG HCO3 VBG Base Excess Sodium Potassium Chloride Carbon Dioxide Anion Gap BUN Creatinine Est GFR ( Amer) Glucose Lactic Acid 2.7 H 2.1 Calcium Magnesium Total Bilirubin AST Alkaline Phosphatase Total Protein Albumin Lipase Urine Color Urine Appearance Urine pH Ur Specific [place] Urine Protein Urine Glucose (UA) Urine Ketones Urine Blood Urine Nitrite Ur Leukocyte Esterase Urine WBC (Auto) Urine RBC (Auto) 08/14/19 06:40 WBC RBC Hgb Hct MCV MCH MCHC RDW Plt Count Seg Neutrophils % VBG pH VBG pCO2 VBG HCO3 VBG Base Excess Sodium 133.8 L Potassium 3.7 Chloride 100 Carbon Dioxide 26 Anion Gap 8 BUN 34 H Creatinine 1.49 H Est GFR ( Amer) 57 L Glucose 143 H Lactic Acid Calcium 8.9 Magnesium 1.6 Total Bilirubin 4.0 H AST 264 H Alkaline Phosphatase 152 H Total Protein 6.2 L Albumin 3.4 L Lipase 119.5 Urine Color Urine Appearance Urine pH Ur Specific [place] Urine Protein Urine Glucose (UA) Urine Ketones Urine Blood Urine Nitrite Ur Leukocyte Esterase Urine WBC (Auto) Urine RBC (Auto) Impressions: Chest X-Ray 08/13/19 19:02 IMPRESSION: NO ACUTE RADIOGRAPHIC FINDING IN THE CHEST. Abdomen/Pelvis CT 08/13/19 21:29 IMPRESSION: Mild medical hepatic disease. Interval postsurgical change from resection of the mass lesion arising from the right kidney. The mass lesion arising from the left kidney is larger on current examination when compared to prior.. Abdomen Ultrasound 08/13/19 22:19 IMPRESSION: Limited examination demonstrating diffuse fatty infiltration of the liver. The gallbladder is contracted and not well seen. Assessment & Plan - Diagnosis (1) Chronic kidney disease, stage III (moderate) Is this a current diagnosis for this admission?: Yes Plan: Patient has very minimal proteinuria but no significant microhematuria. Underlying baseline kidney function is unknown. He is status post right partial nephrectomy for renal mass and still has left renal mass being followed by urologist from [place]. Patient is nonoliguric by history at least. The patient may have slight elevation of creatinine during his admission but is not worrisome. This may be due to current gram-negative bacteremia/sepsis. Kidney function needs to be monitored moving forward. I think he is currently now euvolemic after being given 4 L of IV fluids from admission. He does have to maintain euvolemia moving on. Monitor vancomycin trough level if it will be given continuously. Avoid further nephrotoxic medications. Advised and educated the patient regarding his kidney function and factors affecting it. Monitor the patient's intake and output. (2) Gram-negative bacteremia Is this a current diagnosis for this admission?: Yes Plan: Etiology still uncertain at this point. Currently on IV cefepime and vancomycin per Dr. Drake. (3) Fever Qualifiers: Fever type: unspecified Qualified Code(s): R50.9 - Fever, unspecified Is this a current diagnosis for this admission?: Yes Plan: As above. (4) Abnormal LFTs (liver function tests) Is this a current diagnosis for this admission?: Yes Plan: Patient scheduled for HIDA scan to have a better look at the gallbladder. Surgery consulted. 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 Patient still has the left renal mass being followed closely by his urologist in [place]. I think patient just needs to follow-up with his urologist as an outpatient. I do not think we need to do anything acutely during this hospitalization for this. Imaging studies did not show any of obstructive uropathy. - Notes Notes: Thank you very much for this consultation. Discussed with Dr. Drake. - Time Time Spent: 50 to 70 Minutes
--- NOTE | 2019-08-14 15:46 | PDOC CONSULTATION ---
Consultation Consult Date: 08/14/19 Provider Consulted: SHERRY CONTRERAS Consult reason:: Gallstones History of Present Illness Admission Date/PCP: 08/13/19 23:49 JIN KENYON MD History of Present Illness: TRAE GUZMAN is a 69 year old male hypertensive, history of stroke, diabetes mellitus type 2, post [place] in February 2019, complaining of fever 103 yesterday with vague nausea and subsequently went to the ED. CT scan showed gallstones with no common bile duct dilatation. Ultrasound of the gallbladder showed gallstones with common bile duct about 2.5 mm. His bilirubin and LFTs are slightly elevated. Patient denies any abdominal pains however. He was told that he has gallstones before his surgery in [facility] and was also told that he may have had a gallstone pancreatitis last year but claims he had it only for about a day. Past Medical History Cardiac Medical History: Reports: Hyperlipidema, Hypertension Denies: Atrial Fibrillation, Congestive Heart Failure, Myocardial Infarction Pulmonary Medical History: Denies: Asthma, Bronchitis, Chronic Obstructive Pulmonary Disease (COPD), Pneumonia, Tuberculosis Neurological Medical History: Denies: Migraine, Seizures Endocrine Medical History: Reports: Diabetes Mellitus Type 2, Hypothyroidism Denies: Diabetes Mellitus Type 1 Renal/ Medical History: Reports: Chronic Kidney Disease, Other - Bilateral renal masses, status post right partial nephrectomy with excision Denies: End Stage Renal Disease GI Medical History: Reports: Gastroesophageal Reflux Disease Denies: Hiatal Hernia Musculoskeltal Medical History: Denies: Arthritis Psychiatric Medical History: Denies: Attention Deficit Hyperactivity Disorder, Bipolar Disorder, Depression Hematology: Denies: Anemia, Sickle Cell Disease Past Surgical History Past Surgical History: Reports: Herniorrhaphy - Bilateral inguinal, Tonsillectomy - With adenoidectomy, Other - rt nephrectomy partial Social History Lives with: Spouse/Significant other Smoking Status: Never Smoker Frequency of Alcohol Use: Social Hx Recreational Drug Use: No Hx Prescription Drug Abuse: No - Advance Directive Resuscitation Status: Full Code Family History Family History: Reviewed & Not Pertinent Parental Family History Reviewed: Yes Children Family History Reviewed: No Sibling(s) Family History Reviewed.: No Medication/Allergy Home Medications: Aspirin [Ecotrin 81 mg EC Tablet] 81 mg PO DAILY 08/14/19 Atorvastatin Calcium [Lipitor 40 mg Tablet] 40 mg PO QHS 08/14/19 Carvedilol [Coreg 12.5 mg Tablet] 12.5 mg PO Q12 08/14/19 Clopidogrel Bisulfate [Plavix 75 mg Tablet] 75 mg PO DAILY 08/14/19 Empagliflozin [Jardiance] 25 mg PO DAILY 08/14/19 Furosemide [Lasix 20 mg Tablet] 20 mg PO MOTUWETHFR@1000 08/14/19 Glipizide [Glucotrol 5 mg Tablet] 5 mg PO BID 08/14/19 Levothyroxine Sodium [Synthroid] 200 mcg PO Q6AM 08/14/19 Lisinopril [Zestril] 40 mg PO DAILY 08/14/19 Sitagliptin Phosphate [Januvia 50 mg Tablet] 100 mg PO DAILY 08/14/19 Allergies/Adverse Reactions: No Known Allergies Allergy (Verified 08/13/19 18:02) Review of Systems Constitutional: PRESENT: fever(s) Cardiovascular: PRESENT: other - Denies chest pains nor cough Gastrointestinal: PRESENT: nausea, other - Denies any abdominal pains Physical Exam Vital Signs: Temp Pulse Resp BP Pulse Ox 100.0 F 72 18 128/37 H 95 08/14/19 11:31 08/14/19 14:00 08/14/19 11:31 08/14/19 11:31 08/14/19 11:31 Intake & Output 08/13/19 08/14/19 08/15/19 06:59 06:59 06:59 Intake Total 4550 610 Balance 4550 610 Weight 100 kg General appearance: PRESENT: no acute distress Head exam: PRESENT: atraumatic Eye exam: PRESENT: conjunctiva pink Mouth exam: PRESENT: moist Neck exam: PRESENT: full ROM Respiratory exam: PRESENT: clear to auscultation corrine Cardiovascular exam: PRESENT: RRR Pulses: PRESENT: normal radial pulses Vascular exam: PRESENT: normal capillary refill GI/Abdominal exam: PRESENT: soft - Nontender. Very mild tenderness along the right partial nephrectomy scar Rectal exam: PRESENT: deferred Neurological exam: PRESENT: alert, oriented to person, oriented to place, oriented to time, oriented to situation Psychiatric exam: PRESENT: appropriate affect Skin exam: PRESENT: normal color, warm Results Laboratory Results: 08/14/19 06:40 08/14/19 06:40 08/13/19 08/13/19 08/13/19 17:57 17:57 17:57 WBC 12.2 H RBC 4.70 Hgb 13.6 Hct 39.7 MCV 84 MCH 28.9 MCHC 34.3 RDW 14.8 H Plt Count 143 L Seg Neutrophils % Not Reportable VBG pH VBG pCO2 VBG HCO3 VBG Base Excess Sodium 135.1 L Potassium 4.1 Chloride 99 Carbon Dioxide 24 Anion Gap 12 BUN 36 H Creatinine 1.51 H Est GFR ( Amer) 56 L Glucose 241 H Lactic Acid Calcium 9.9 Magnesium Total Bilirubin 4.0 H AST 223 H Alkaline Phosphatase 189 H Total Protein 7.8 Albumin 4.6 Lipase 153.9 Urine Color Urine Appearance Urine pH Ur Specific [place] Urine Protein Urine Glucose (UA) Urine Ketones Urine Blood Urine Nitrite Ur Leukocyte Esterase Urine WBC (Auto) Urine RBC (Auto) 08/13/19 08/13/19 08/13/19 18:00 19:43 19:43 WBC RBC Hgb Hct MCV MCH MCHC RDW Plt Count Seg Neutrophils % VBG pH 7.45 H VBG pCO2 33.6 L VBG HCO3 22.6 VBG Base Excess -0.9 Sodium Potassium Chloride Carbon Dioxide Anion Gap BUN Creatinine Est GFR ( Amer) Glucose Lactic Acid 2.3 H Calcium Magnesium Total Bilirubin AST Alkaline Phosphatase Total Protein Albumin Lipase Urine Color YELLOW Urine Appearance CLEAR Urine pH 5.0 Ur Specific [place] 1.023 Urine Protein 30 H Urine Glucose (UA) >=500 H Urine Ketones TRACE H Urine Blood SMALL H Urine Nitrite NEGATIVE Ur Leukocyte Esterase NEGATIVE Urine WBC (Auto) 1 Urine RBC (Auto) 1 08/13/19 08/14/19 08/14/19 22:38 01:41 06:40 WBC 12.4 H RBC 4.04 L Hgb 11.7 L Hct 33.9 L MCV 84 MCH 29.0 MCHC 34.6 RDW 15.1 H Plt Count 127 L Seg Neutrophils % Not Reportable VBG pH VBG pCO2 VBG HCO3 VBG Base Excess Sodium Potassium Chloride Carbon Dioxide Anion Gap BUN Creatinine Est GFR ( Amer) Glucose Lactic Acid 2.7 H 2.1 Calcium Magnesium Total Bilirubin AST Alkaline Phosphatase Total Protein Albumin Lipase Urine Color Urine Appearance Urine pH Ur Specific [place] Urine Protein Urine Glucose (UA) Urine Ketones Urine Blood Urine Nitrite Ur Leukocyte Esterase Urine WBC (Auto) Urine RBC (Auto) 08/14/19 06:40 WBC RBC Hgb Hct MCV MCH MCHC RDW Plt Count Seg Neutrophils % VBG pH VBG pCO2 VBG HCO3 VBG Base Excess Sodium 133.8 L Potassium 3.7 Chloride 100 Carbon Dioxide 26 Anion Gap 8 BUN 34 H Creatinine 1.49 H Est GFR ( Amer) 57 L Glucose 143 H Lactic Acid Calcium 8.9 Magnesium 1.6 Total Bilirubin 4.0 H AST 264 H Alkaline Phosphatase 152 H Total Protein 6.2 L Albumin 3.4 L Lipase 119.5 Urine Color Urine Appearance Urine pH Ur Specific [place] Urine Protein Urine Glucose (UA) Urine Ketones Urine Blood Urine Nitrite Ur Leukocyte Esterase Urine WBC (Auto) Urine RBC (Auto) Impressions: Chest X-Ray 08/13/19 19:02 IMPRESSION: NO ACUTE RADIOGRAPHIC FINDING IN THE CHEST. Abdomen/Pelvis CT 08/13/19 21:29 IMPRESSION: Mild medical hepatic disease. Interval postsurgical change from resection of the mass lesion arising from the right kidney. The mass lesion arising from the left kidney is larger on current examination when compared to prior.. Abdomen Ultrasound 08/13/19 22:19 IMPRESSION: Limited examination demonstrating diffuse fatty infiltration of the liver. The gallbladder is contracted and not well seen. Hepatobiliary Scan Nuclear Medicine 08/13/19 23:44 IMPRESSION: Scintigraphic knee findings as detailed above are concerning for an acute cholecystitis. Assessment & Plan - Diagnosis (1) Abnormal LFTs (liver function tests) Is this a current diagnosis for this admission?: Yes (2) Fever Qualifiers: Fever type: unspecified Qualified Code(s): R50.9 - Fever, unspecified Is this a current diagnosis for this admission?: Yes (3) Gallstone Is this a current diagnosis for this admission?: Yes (4) Severe sepsis Is this a current diagnosis for this admission?: Yes (5) Diabetes Qualifiers: Diabetes mellitus type: type 2 Diabetes mellitus halfway insulin use: unspecified rn long term care insulin use status Chronic kidney disease stage: stage 3 (moderate) Is this a current diagnosis for this admission?: Yes (6) Hypertension Qualifiers: Hypertension type: essential hypertension Qualified Code(s): I10 - Essential (primary) hypertension Is this a current diagnosis for this admission?: Yes - Time Time Spent: 30 to 50 Minutes - Inpatient Certification Medical Necessity: Need For IV Fluids, Need for IV Antibiotics, Need for Surgery - Plan Summary Plan Summary: 69-year-old male with history of hypertension, type 2 diabetes, history of strok e, post right partial nephrectomy in [place] last February 2019, complained of fever nausea yesterday morning. He went to ED and had a CT scan which showed gallstones and ultrasound results which showed gallstones with a common bile duct about 2.5 mm in diameter. His LFTs are slightly elevated. He has gram- negative cocci on blood culture. He just had HIDA scan which showed nonfilling of the gallbladder. However there does not appear to have obstruction of the common bile duct with the dye going into the small bowel His abdomen is practically benign without any tenderness and quite soft. There is just minimal tenderness along the right flank operative scar. Recommendations: Patient is hesitant to undergo any operation/lap cholecystectomy. If he needs an operation he would like to have it done at [facility]. I requested for an MRCP to check on his common bile duct since LFTs are elevated though no obviews CBD obstruction on HIDA scan today. If MRCP is abnormal then will transfer him to [facility] since we do not have an on- call GI to do an ERCP here. Continue IV antibiotics
[2019-08-14] MEDS ORDERED: VANCOMYCIN HCL 1,500 MG in DEXTROSE 5%-WATER 250 ML IV SCH (18:00)
[2019-08-14] MEDS ORDERED: VANCOMYCIN HCL 1,500 MG in DEXTROSE 5%-WATER 250 ML IV ONE (23:00)
[2019-08-14] MEDS ORDERED: VANCOMYCIN HCL INJ 500 MG VIAL ONE (23:50)
[2019-08-14] MEDS ORDERED: VANCOMYCIN HCL INJ 1000 MG VIAL ONE (23:50)
[2019-08-15] MEDS: LEVOTHYROXINE SODIUM 0.1 MG TABLET PO SCH (05:22)
[2019-08-15 05:38] LABS: HEPATITS B SURFACE ANTIGEN Negative (Negative)
[2019-08-15 06:23] LABS: HEMATOCRIT 32.8 % (37.9-51.0); HEMOGLOBIN 11.3 g/dL (13.5-17.0); MEAN CORPUSCULAR HGB CONC 34.5 g/dL (32.0-36.0); MEAN CORPUSCULAR VOLUME 84 fl (80-97); PLATELET COUNT 113 10^3/uL (150-450); RED CELL DISTRIBUTION WIDTH 14.7 % (11.5-14.0); WHITE BLOOD COUNT 7.1 10^3/uL (4.0-10.5)
[2019-08-15 07:03] LABS: ABSOLUTE LYMPHOCYTES# (MANUAL) 0.8 10^3/uL (0.5-4.7); ABSOLUTE MONOCYTES # (MANUAL) 0.4 10^3/uL (0.1-1.4); BASOPHILS % (MANUAL) 0 % (0-2); EOSINOPHILS % (MANUAL) 0 % (0-6); LYMPHOCYTES % (MANUAL) 11 % (13-45); MONOCYTES % (MANUAL) 6 % (3-13); SEGMENTED NEUTROPHILS % (MAN) 83 % (42-78); TOTAL CELLS COUNTED 100
[2019-08-15 07:05] LABS: PLATELET COMMENT ADEQUATE; POIKILOCYTOSIS SLIGHT; TEAR DROP CELLS SLIGHT; TOXIC GRANULATION SLIGHT
--- NOTE | 2019-08-15 10:14 | PDOC PROGRESS REPORT ---
Subjective Progress Note for:: 08/15/19 Reason For Visit: SEPSIS, GALLSTONE Patient has no complaints. Awaiting MRCP Physical Exam Vital Signs: Temp Pulse Resp BP Pulse Ox 98.0 F 58 L 18 152/49 H 96 08/15/19 07:35 08/15/19 07:35 08/15/19 07:35 08/15/19 07:35 08/15/19 07:35 Intake & Output 08/14/19 08/15/19 08/16/19 06:59 06:59 06:59 Intake Total 4550 2070 Output Total 850 Balance 4550 1220 Weight 100 kg 97.8 kg General appearance: PRESENT: no acute distress GI/Abdominal exam: PRESENT: other - No tenderness Musculoskeletal exam: PRESENT: other - The abdomen is soft, nontender peritoneal signs no rigidity. Results Laboratory Results: 08/15/19 05:51 08/14/19 06:40 08/15/19 08/15/19 05:51 05:51 WBC 7.1 RBC 3.90 L Hgb 11.3 L Hct 32.8 L MCV 84 MCH 29.0 MCHC 34.5 RDW 14.7 H Plt Count 113 L Seg Neutrophils % Not Reportable Magnesium 2.0 Lipase 184.9 Impressions: Chest X-Ray 08/13/19 19:02 IMPRESSION: NO ACUTE RADIOGRAPHIC FINDING IN THE CHEST. Abdomen/Pelvis CT 08/13/19 21:29 IMPRESSION: Mild medical hepatic disease. Interval postsurgical change from resection of the mass lesion arising from the right kidney. The mass lesion arising from the left kidney is larger on current examination when compared to prior.. Abdomen Ultrasound 08/13/19 22:19 IMPRESSION: Limited examination demonstrating diffuse fatty infiltration of the liver. The gallbladder is contracted and not well seen. Hepatobiliary Scan Nuclear Medicine 08/13/19 23:44 IMPRESSION: Scintigraphic knee findings as detailed above are concerning for an acute cholecystitis. Assessment & Plan - Diagnosis (1) Gallstone Is this a current diagnosis for this admission?: Yes Plan: Impression: Symptomatic cholelithiasis with cholecystitis, elevation liver function studies; growing gram-negative rods from his blood, on appropriate third-generation cephalosporin, sepsis resolved Recommendations: 1. Await results of MRCP 2. We will keep patient n.p.o. 3. Disposition will depend upon findings of MRCP. I discussed this with the patient. Nurse Cathleen at bedside during this interaction. 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
[2019-08-15 10:44] LABS: ALKALINE PHOSPHATASE 137 U/L (38-126); ASPARTATE AMINO TRANSFERASE 91 U/L (17-59); BILIRUBIN,DIRECT 0.6 mg/dL (0.0-0.4); TOTAL PROTEIN 5.7 g/dL (6.3-8.2)
[2019-08-15 11:01] LABS: BILIRUBIN,TOTAL 1.3 mg/dL (0.2-1.3)
[2019-08-15 11:25] LABS: HEPATITIS C VIRUS ANTIBODY 0.1 s/co ratio (0.0-0.9)
--- NOTE | 2019-08-15 12:14 | RADIOLOGY REPORT (SQ) ---
EXAM DESCRIPTION: MRI ABDOMEN WITHOUT IMAGES COMPLETED DATE/TIME: 08/15/2019 11:37 am REASON FOR STUDY: R/O CBD stone COMPARISON: HIDA scan from recently along with recent abdominal ultrasound and scratch the CT studie s. TECHNIQUE: Noncontrast MRCP. Source and MIP images reviewed. LIMITATIONS: None. FINDINGS: GALLBLADDER: Mild pericholecystic fluid and gallstones. No gallbladder distention. INTRAHEPATIC DUCTS: Nondilated. EXTRAHEPATIC DUCTS: Common duct is normal caliber. No dilatation of the pancreatic duct. No ductal filling defects noted. PANCREAS: Pancreatic parenchyma looks generally unremarkable although there does appear to be some fa t stranding and edema along the pancreatic head and uncinate process extending into the upper retrope ritoneum as well as into the region of the johanna. No drainable collections. LIVER, SPLEEN, KIDNEYS, ADRENALS: No significant abnormality. VESSELS: No evidence of aneurysm. Grossly appropriate flow voids in the major vascular structures. LUNG BASES: Cardiomegaly. Trace pleural fluid, no significant effusion. OTHER: No other significant finding. IMPRESSION: 1. Cholelithiasis. Mild pericholecystic fluid and gallstones. Findings may represent cholecystitis. 2. No gross duct dilatation or obstruction. No regional stones are masses. 3. Suspicious for pancreatitis. Correlate with labs and presentation. No drainable collections. TECHNICAL DOCUMENTATION: JOB ID: [id number] 2010 [employer]- All Rights Reserved Reading location - IP/workstation name: [email or web address]
[2019-08-15] MEDS: CEFEPIME HCL 2 GM in DEXTROSE 5%-WATER 50 ML IV SCH ×2 (12:53→21:30)
[2019-08-15] MEDS: PANTOPRAZOLE SODIUM 40 MG VIAL IV SCH ×2 (12:53→21:31)
[2019-08-15] MEDS: INSULIN LISPRO 100 UNIT/ML 3 ML VIAL SUBCUT SCH ×4 (12:55→21:33)
[2019-08-15] MEDS: ENOXAPARIN SODIUM INJ 30 MG/0.3 ML DISP.SYRIN SUBCUT SCH (12:56)
[2019-08-15] MEDS ORDERED: BUPIVACAINE HCL 0.25 % INJ/PF (2.5 MG/1 ML) 30 ML VIAL ONE (14:34)
[2019-08-15] MEDS ORDERED: FENTANYL CITRATE INJ/PF 100 MCG/2 ML AMPUL ONE (15:01)
[2019-08-15] MEDS ORDERED: DEXAMETHASONE SOD PHOSPHATE INJ 4 MG/1 ML VIAL ONE (15:01)
[2019-08-15] MEDS ORDERED: ONDANSETRON HCL INJ/PF 4 MG/2 ML SDV ONE (15:01)
[2019-08-15] MEDS ORDERED: PROPOFOL INJ 200 MG/20 ML VIAL IV ONE (15:01)
[2019-08-15] MEDS ORDERED: MORPHINE SULFATE 10 MG/ML INJ ONE (15:01)
[2019-08-15 15:03] LABS: ALBUMIN 3.3 g/dL (3.5-5.0); ALKALINE PHOSPHATASE 146 U/L (38-126); ANION GAP 8 (5-19); ASPARTATE AMINO TRANSFERASE 70 U/L (17-59); BILIRUBIN,DIRECT 0.4 mg/dL (0.0-0.4); BILIRUBIN,TOTAL 1.2 mg/dL (0.2-1.3); BLOOD UREA NITROGEN 20 mg/dL (7-20); CALCIUM 8.7 mg/dL (8.4-10.2); CARBON DIOXIDE 23 mmol/L (22-30); CHLORIDE 104 mmol/L (98-107); GLUCOSE 120 mg/dL (75-110); POTASSIUM 3.9 mmol/L (3.6-5.0); TOTAL PROTEIN 6.5 g/dL (6.3-8.2)
[2019-08-15] MEDS ORDERED: MEPERIDINE HCL/PF INJ 25 MG/1 ML DISP.SYRIN IV PRN (15:35)
[2019-08-15] MEDS ORDERED: FENTANYL CITRATE INJ/PF 100 MCG/2 ML AMPUL IV PRN ×3 (15:35)
[2019-08-15] MEDS ORDERED: DIPHENHYDRAMINE HCL 50 MG/ML VIAL IV PRN (15:35)
[2019-08-15] MEDS ORDERED: PROMETHAZINE HCL INJ 25 MG/1 ML VIAL IV PRN ×2 (15:35)
[2019-08-15] MEDS ORDERED: ONDANSETRON HCL INJ/PF 4 MG/2 ML SDV IV PRN (16:23)
--- NOTE | 2019-08-15 16:38 | Operative Report ---
Operative Report DATE OF SURGERY: 08/15/19 PREOPERATIVE DIAGNOSIS: Acute cholecystitis with cholelithiasis POSTOPERATIVE DIAGNOSIS: Same OPERATION: Laparoscopic cholecystectomy with subhepatic drain placement SURGEON: JING CHAU ANESTHESIA: GA TISSUE REMOVED OR ALTERED: Gallbladder with contents COMPLICATIONS: None ESTIMATED BLOOD LOSS: 70 cc INTRAOPERATIVE FINDINGS: See below PROCEDURE: After obtaining informed consent, the patient was taken to the operating room. General Anesthesia was induced; the arms were extended, and the abdomen was exposed, and prepped and draped in a sterile fashion. Instrumentation was set up for laparoscopic cholecystectomy. Surgical plan and surgical timeout were conducted. A vertical incision was made above the umbilicus, and a verres needle was inserted uneventfully into the peritoneal cavity. Pneumoperitoneum was established. The verres needle was removed and a 5 mm trocar was inserted and a 5 mm flexible laparoscope was inserted. Visualization of the peritoneal cavity confirmed safe uneventful entry. Under direct visualization 3 additional 5 mm ports were established, one in the subxiphoid position and second and third in the subcostal position. Findings were significant for extensive adhesions into the gallbladder, gerardo roduodenal area and transverse colon. These adhesions were taken down using LigaSure dissection. An orogastric tube was used to decompress stomach. The gallbladder was now grasped from the fundus and infundibulum and elevated up into the free peritoneal space for optimal visualization. Adhesions around the neck of the gallbladder were taken down carefully. We opened up the triangle of Calot low, and got around the cystic duct carefully. Photos were taken. The cystic artery was left along the liver bed. The cystic duct was clipped once distally, opened and milked of some sludge and then clear bile egressed from the opening. In light of the normal preoperative MRCP, and normalization of the total bilirubin, I did not perform an intraoperative cholangiogram. The cystic duct was clipped twice proximally and divided with scissors We now elevated the gallbladder off the liver bed using hook cautery dissection. The cystic artery was now surrounded with a right angle clamp, clipped twice proximally once distally and divided with scissors. We did get into the gallbladder one-point and emptied a few stones which was subsequently retrieved. Once the gallbladder was completely free from the liver bed, was placed in Endobag along with the stones. The back including its contents was removed from the supraumbilical port site and sent to pathology. We returned the peritoneal cavity checked for bleeding and there was some coming from the raw liver edge this was managed with a small piece of Surgicel. We did place a large Mick drain into the subcostal space, trimmed to the appropriate length, and sew it to the skin with 2-0 Prolene suture. We leveled the patient out and checked the peritoneal cavity for bleeding and there was none. We also Confirmed satisfactory placement of clips on cystic duct and cystic artery were secured . At this point we felt the operation was complete. The subcutaneous tissue was then anesthetized with quarter percent Marcaine Sponge and needle counts are correct. All ports removed under direct visualization pneumoperitoneum evacuated, the supraumbilical site closed at the fascial level with 0 Vicryl suture x2 and 5 mm port wounds closed with 3-0 Vicryl suture, benzoin and Steri-Strips. The patient was extubated, and taken to the recovery room in stable condition.
[2019-08-15] MEDS ORDERED: DOCUSATE SODIUM 100 MG CAPSULE PO PRN (16:40)
[2019-08-15] MEDS ORDERED: MORPHINE SULFATE 10 MG/ML INJ IV PRN (19:34)
--- NOTE | 2019-08-15 19:34 | PDOC PROGRESS REPORT ---
Subjective Progress Note for:: 08/15/19 Subjective:: Patient is s/p lap. cholecystectomy. No nausea or vomiting. Minimal abdominal pain related to surgical procedure. No chest pain or difficulty with breathing. No fever or chills. Reason For Visit: SEPSIS, GALLSTONE Physical Exam Vital Signs: Temp Pulse Resp BP Pulse Ox 98.2 F 60 18 151/52 H 93 08/15/19 17:05 08/15/19 17:05 08/15/19 17:05 08/15/19 17:05 08/15/19 17:05 Intake & Output 08/14/19 08/15/19 08/16/19 06:59 06:59 06:59 Intake Total 4550 2120 500 Output Total 850 825 Balance 4550 1270 -325 Weight 100 kg 97.8 kg General appearance: PRESENT: obese Head exam: PRESENT: atraumatic, normocephalic Eye exam: PRESENT: conjunctiva pink. ABSENT: scleral icterus Mouth exam: PRESENT: moist Respiratory exam: PRESENT: clear to auscultation corrine Cardiovascular exam: PRESENT: RRR, +S1, +S2. ABSENT: diastolic murmur, rubs, systolic murmur Vascular exam: ABSENT: pallor GI/Abdominal exam: PRESENT: normal bowel sounds, soft, other - drainage system in situ with serosanguineous fluid. ABSENT: distended, guarding, mass, organolm egaly, rebound, tenderness Extremities exam: ABSENT: pedal edema Neurological exam: PRESENT: alert, awake, oriented to person, oriented to place, oriented to time, oriented to situation, CN II-XII grossly intact. ABSENT: motor sensory deficit Psychiatric exam: PRESENT: appropriate affect, normal mood. ABSENT: homicidal ideation, suicidal ideation Skin exam: PRESENT: dry, warm, other - surgical site dressing satisfactory. Results Laboratory Results: 08/15/19 05:51 08/15/19 14:30 08/15/19 08/15/19 08/15/19 05:51 05:51 05:51 WBC 7.1 RBC 3.90 L Hgb 11.3 L Hct 32.8 L MCV 84 MCH 29.0 MCHC 34.5 RDW 14.7 H Plt Count 113 L Seg Neutrophils % Not Reportable Sodium Potassium Chloride Carbon Dioxide Anion Gap BUN Creatinine Est GFR ( Amer) Glucose Calcium Magnesium 2.0 Total Bilirubin 1.3 D AST 91 H Alkaline Phosphatase 137 H Total Protein 5.7 L Albumin 3.0 L Lipase 184.9 08/15/19 14:30 WBC RBC Hgb Hct MCV MCH MCHC RDW Plt Count Seg Neutrophils % Sodium 135.3 L Potassium 3.9 Chloride 104 Carbon Dioxide 23 Anion Gap 8 BUN 20 Creatinine 1.11 Est GFR ( Amer) > 60 Glucose 120 H Calcium 8.7 Magnesium Total Bilirubin 1.2 AST 70 H Alkaline Phosphatase 146 H Total Protein 6.5 Albumin 3.3 L Lipase Impressions: Chest X-Ray 08/13/19 19:02 IMPRESSION: NO ACUTE RADIOGRAPHIC FINDING IN THE CHEST. Abdomen/Pelvis CT 08/13/19 21:29 IMPRESSION: Mild medical hepatic disease. Interval postsurgical change from resection of the mass lesion arising from the right kidney. The mass lesion arising from the left kidney is larger on current examination when compared to prior.. Abdomen Ultrasound 08/13/19 22:19 IMPRESSION: Limited examination demonstrating diffuse fatty infiltration of the liver. The gallbladder is contracted and not well seen. Hepatobiliary Scan Nuclear Medicine 08/13/19 23:44 IMPRESSION: Scintigraphic knee findings as detailed above are concerning for an acute cholecystitis. Abdomen MRI 08/15/19 00:00 IMPRESSION: 1. Cholelithiasis. Mild pericholecystic fluid and gallstones. Findings may represent cholecystitis. 2. No gross duct dilatation or obstruction. No regional stones are masses. 3. Suspicious for pancreatitis. Correlate with labs and presentation. No drainable collections. Assessment & Plan - Diagnosis (1) Severe sepsis Is this a current diagnosis for this admission?: Yes Plan: Continue IV Vancomycin and Cefepime coverage. Follow up on blood culture organism identification sensitivity. (2) Gallstone Qualifiers: Cholecystitis presence: without cholecystitis Biliary obstruction: with biliary obstruction Qualified Code(s): K80.21 - Calculus of gallbladder without cholecystitis with obstruction Is this a current diagnosis for this admission?: Yes Plan: s/p lap. cholecystectomy. Will start on IV Morphine for pain management. Resume feeding gradually. (3) Abnormal LFTs (liver function tests) Is this a current diagnosis for this admission?: Yes Plan: s/p lap. cholecystectomy. Hopefully his LFT will start seeing some improvement. (4) Diabetes mellitus type 2 in obese Is this a current diagnosis for this admission?: Yes Plan: Maintain on medication management. Obtain Hemoglobin A1c level. (5) Hypothyroidism Qualifiers: Hypothyroidism type: unspecified Qualified Code(s): E03.9 - Hypothyroidism, unspecified Is this a current diagnosis for this admission?: Yes Plan: Continue current medication management. (6) BMI 31.0-31.9,adult Is this a current diagnosis for this admission?: Yes Plan: Continue morbidities management and caloric restriction management. - Time Time Spent with patient: 25-34 minutes Level of Care: IMCU Medications reviewed and adjusted accordingly: Yes Anticipated discharge: Home with Homehealth Within: Other - Inpatient Certification Based on my medical assessment, after consideration of the patient's comorbidities, presenting symptoms, or acuity I expect that the services needed warrant INPATIENT care.: Yes I certify that my determination is in accordance with my understanding of Medicare's requirements for reasonable and necessary INPATIENT services [42 CFR 412.3e].: Yes Medical Necessity: Significant Comorbidiites Make Outpatient Treatment Too Risky, Need Close Monitoring Due to Risk of Patient Decompensation, Need For IV Fluids, Need For Continuous Telemetry Monitoring, Need for Pain Control, Need for IV Antibiotics, Need for Surgery, Risk of Complication if Not Cared For in Hospital, Risk of Diagnosis Which Will Require Inpatient Eval/Care/Monitoring Post Hospital Care: 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 See covering attending physician orders for care plan details.
[2019-08-15] MEDS: KETOROLAC TROMETHAMINE INJ/PF 30 MG/1 ML SDV IV PRN (19:36)
--- NOTE | 2019-08-15 20:50 | EKG REPORT ---
SEVERITY:- ABNORMAL ECG - SINUS RHYTHM ATRIAL PREMATURE COMPLEX NONSPECIFIC IVCD WITH LAD LVH WITH SECONDARY REPOLARIZATION ABNORMALITY : Confirmed by: Pro Parkinson 15-Aug-2019 20:49:28
[2019-08-15] MEDS ORDERED: VANCOMYCIN HCL 1,500 MG in DEXTROSE 5%-WATER 250 ML IV SCH (22:00)
[2019-08-16] MEDS: LEVOTHYROXINE SODIUM 0.1 MG TABLET PO SCH (05:08)
[2019-08-16 05:53] LABS: HEMATOCRIT 35.5 % (37.9-51.0); HEMOGLOBIN 12.2 g/dL (13.5-17.0); MEAN CORPUSCULAR HGB CONC 34.2 g/dL (32.0-36.0); MEAN CORPUSCULAR VOLUME 85 fl (80-97); PLATELET COUNT 133 10^3/uL (150-450); RED BLOOD COUNT 4.19 10^6/uL (4.35-5.55); RED CELL DISTRIBUTION WIDTH 15.1 % (11.5-14.0); WHITE BLOOD COUNT 9.6 10^3/uL (4.0-10.5)
[2019-08-16 06:05] LABS: ALBUMIN 3.2 g/dL (3.5-5.0); ALKALINE PHOSPHATASE 135 U/L (38-126); ANION GAP 10 (5-19); ASPARTATE AMINO TRANSFERASE 49 U/L (17-59); BILIRUBIN,DIRECT 0.3 mg/dL (0.0-0.4); BLOOD UREA NITROGEN 26 mg/dL (7-20); CALCIUM 8.7 mg/dL (8.4-10.2); CARBON DIOXIDE 22 mmol/L (22-30); CHLORIDE 103 mmol/L (98-107); CHOLESTEROL 116.95 mg/dL (0-200); GLUCOSE 150 mg/dL (75-110); TOTAL PROTEIN 6.4 g/dL (6.3-8.2); TRIGLYCERIDES 253 mg/dL (<150)
[2019-08-16 06:16] LABS: DIRECT LDL 57 mg/dL (<100)
[2019-08-16 06:20] LABS: VLDL CHOLESTEROL 50.6 mg/dL (10-31)
[2019-08-16 06:25] LABS: ABSOLUTE LYMPHOCYTES# (MANUAL) 0.2 10^3/uL (0.5-4.7); ABSOLUTE MONOCYTES # (MANUAL) 0.6 10^3/uL (0.1-1.4); ANISOCYTOSIS 1+; BAND NEUTROPHILS % (MANUAL) 6 % (3-5); BASOPHILS % (MANUAL) 0 % (0-2); BURR CELLS 1+; EOSINOPHILS % (MANUAL) 0 % (0-6); LYMPHOCYTES % (MANUAL) 2 % (13-45); MONOCYTES % (MANUAL) 6 % (3-13); PLATELET COMMENT ADEQUATE; POLYCHROMASIA 1+; SEGMENTED NEUTROPHILS % (MAN) 86 % (42-78); TOTAL CELLS COUNTED 100
[2019-08-16 06:38] LABS: POTASSIUM 4.9 mmol/L (3.6-5.0)
[2019-08-16] MEDS: PANTOPRAZOLE SODIUM 40 MG VIAL IV SCH ×2 (09:11→21:43)
[2019-08-16] MEDS: CEFEPIME HCL 2 GM in DEXTROSE 5%-WATER 50 ML IV SCH ×2 (09:11→21:43)
--- NOTE | 2019-08-16 09:13 | PDOC PROGRESS REPORT ---
Subjective Progress Note for:: 08/16/19 Subjective:: Patient states he feels well, tolerated diet, ambulated, and voiding without difficulty. Reason For Visit: SEPSIS, GALLSTONE Physical Exam Vital Signs: Temp Pulse Resp BP Pulse Ox 98.6 F 59 L 20 136/84 H 98 08/16/19 03:00 08/16/19 07:00 08/16/19 03:00 08/16/19 03:00 08/16/19 03:00 Intake & Output 08/15/19 08/16/19 08/17/19 06:59 06:59 06:59 Intake Total 2120 810 Output Total 850 955 Balance 1270 -145 Weight 97.8 kg 98.8 kg General appearance: PRESENT: no acute distress, other - Sitting in chair, aw aiting breakfast GI/Abdominal exam: PRESENT: other - Abdomen examined. Drain removed uneventfully; abdomen benign. Results Laboratory Results: 08/16/19 05:31 08/16/19 05:31 08/15/19 08/15/19 08/16/19 05:51 14:30 05:31 WBC RBC Hgb Hct MCV MCH MCHC RDW Plt Count Seg Neutrophils % Sodium 135.3 L 135.3 L Potassium 3.9 4.9 D Chloride 104 103 Carbon Dioxide 23 22 Anion Gap 8 10 BUN 20 26 H Creatinine 1.11 1.22 Est GFR ( Amer) > 60 > 60 Glucose 120 H 150 H Calcium 8.7 8.7 Magnesium 2.1 Total Bilirubin 1.3 D 1.2 1.0 AST 91 H 70 H 49 Alkaline Phosphatase 137 H 146 H 135 H Total Protein 5.7 L 6.5 6.4 Albumin 3.0 L 3.3 L 3.2 L Triglycerides 253 H Cholesterol 116.95 LDL Cholesterol Direct 57 VLDL Cholesterol 50.6 H HDL Cholesterol 18 L Lipase 99.2 08/16/19 05:31 WBC 9.6 RBC 4.19 L Hgb 12.2 L Hct 35.5 L MCV 85 MCH 29.0 MCHC 34.2 RDW 15.1 H Plt Count 133 L Seg Neutrophils % Not Reportable Sodium Potassium Chloride Carbon Dioxide Anion Gap BUN Creatinine Est GFR ( Amer) Glucose Calcium Magnesium Total Bilirubin AST Alkaline Phosphatase Total Protein Albumin Triglycerides Cholesterol LDL Cholesterol Direct VLDL Cholesterol HDL Cholesterol Lipase Impressions: Chest X-Ray 06/04/20 19:02 IMPRESSION: NO ACUTE RADIOGRAPHIC FINDING IN THE CHEST. Abdomen/Pelvis CT 08/13/19 21:29 IMPRESSION: Mild medical hepatic disease. Interval postsurgical change from resection of the mass lesion arising from the right kidney. The mass lesion arising from the left kidney is larger on current examination when compared to prior.. Abdomen Ultrasound 08/13/19 22:19 IMPRESSION: Limited examination demonstrating diffuse fatty infiltration of the liver. The gallbladder is contracted and not well seen. Hepatobiliary Scan Nuclear Medicine 08/13/19 23:44 IMPRESSION: Scintigraphic knee findings as detailed above are concerning for an acute cholecystitis. Abdomen MRI 08/15/19 00:00 IMPRESSION: 1. Cholelithiasis. Mild pericholecystic fluid and gallstones. Findings may represent cholecystitis. 2. No gross duct dilatation or obstruction. No regional stones are masses. 3. Suspicious for pancreatitis. Correlate with labs and presentation. No drainable collections. Assessment & Plan - Diagnosis (1) Gallstone Qualifiers: Cholecystitis presence: without cholecystitis Biliary obstruction: with biliary obstruction Qualified Code(s): K80.21 - Calculus of gallbladder without cholecystitis with obstruction Is this a current diagnosis for this admission?: Yes Plan: Impression: Patient doing well 1 day status post laparoscopic cholecystectomy for acute cholecystitis with cholelithiasis, gram-negative sepsis. Patient looks well, drain output, and all liver function studies are normalizing expectantly Recommendations: 1. Advance diet and activity as tolerated 2. To be discharged home from the internal medicine service, follow-up with Dr. Olsen also surgical clinic in 1 to 2weeks; please call office tomorrow, Saturday, August for appointment 3. Patient may take Motrin or Tylenol as needed pain. 4. Surgery will sign off at this time; please reconsult if clinically indicated. 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
[2019-08-16] MEDS: INSULIN LISPRO 100 UNIT/ML 3 ML VIAL SUBCUT SCH ×4 (09:14→22:11)
[2019-08-16] MEDS: ENOXAPARIN SODIUM INJ 30 MG/0.3 ML DISP.SYRIN SUBCUT SCH (09:15)
[2019-08-16] MEDS ORDERED: VANCOMYCIN HCL 1,000 MG in DEXTROSE 5%-WATER 250 ML IV SCH (11:00)
--- NOTE | 2019-08-16 11:17 | EKG REPORT ---
SEVERITY:- ABNORMAL ECG - SINUS RHYTHM NONSPECIFIC IVCD WITH LAD LEFT VENTRICULAR HYPERTROPHY : Confirmed by: Pro Parkinson 16-Aug-2019 11:16:34
[2019-08-16] MEDS ORDERED: NORMAL SALINE 1000 ML 1,000 ML IV PRN (12:06)
--- NOTE | 2019-08-16 12:13 | PDOC PROGRESS REPORT ---
Subjective Progress Note for:: 08/16/19 Subjective:: OOB in chair. Tolerating regular diet at lunch. No nausea, vomiting or any significant abdominal pain. No chest pain or difficulty with breathing. Blood pressure has been recently elevated. No fever or chills. Reason For Visit: SEPSIS, GALLSTONE Physical Exam Vital Signs: Temp Pulse Resp BP Pulse Ox 98.5 F 60 18 174/58 H 93 08/16/19 07:52 08/16/19 07:52 08/16/19 07:52 08/16/19 07:52 08/16/19 07:52 Intake & Output 08/15/19 08/16/19 08/17/19 06:59 06:59 06:59 Intake Total 2120 860 Output Total 850 955 Balance 1270 -95 Weight 97.8 kg 98.8 kg Physical Exam: General appearance: PRESENT: obese Head exam: PRESENT: atraumatic, normocephalic Eye exam: PRESENT: conjunctiva pink. ABSENT: pallor, scleral icterus Mouth exam: PRESENT: moist Respiratory exam: PRESENT: clear to auscultation corrine Cardiovascular exam: PRESENT: RRR, +S1, +S2. ABSENT: diastolic murmur, rubs, systolic murmur GI/Abdominal exam: PRESENT: normal bowel sounds, soft. ABSENT: distended, guarding, mass, organomegaly, rebound, tenderness, drainage system is out Extremities exam: ABSENT: pedal edema Neurological exam: PRESENT: alert, awake, oriented to person, oriented to place, oriented to time, oriented to situation, CN II-XII grossly intact. ABSENT: motor sensory deficit Psychiatric exam: PRESENT: appropriate affect, normal mood. ABSENT: homicidal ideation, suicidal ideation Skin exam: PRESENT: dry, warm, other - surgical site dressing satisfactory. Results Laboratory Results: 08/16/19 05:31 08/16/19 05:31 08/15/19 08/16/19 08/16/19 14:30 05:31 05:31 WBC 9.6 RBC 4.19 L Hgb 12.2 L Hct 35.5 L MCV 85 MCH 29.0 MCHC 34.2 RDW 15.1 H Plt Count 133 L Seg Neutrophils % Not Reportable Sodium 135.3 L 135.3 L Potassium 3.9 4.9 D Chloride 104 103 Carbon Dioxide 23 22 Anion Gap 8 10 BUN 20 26 H Creatinine 1.11 1.22 Est GFR ( Amer) > 60 > 60 Glucose 120 H 150 H Calcium 8.7 8.7 Magnesium 2.1 Total Bilirubin 1.2 1.0 AST 70 H 49 Alkaline Phosphatase 146 H 135 H Total Protein 6.5 6.4 Albumin 3.3 L 3.2 L Triglycerides 253 H Cholesterol 116.95 LDL Cholesterol Direct 57 VLDL Cholesterol 50.6 H HDL Cholesterol 18 L Lipase 99.2 08/13/19 18:00 Clean Catch Midstream Urine Culture - Final NO GROWTH 2 DAYS Impressions: Chest X-Ray 08/13/19 19:02 IMPRESSION: NO ACUTE RADIOGRAPHIC FINDING IN THE CHEST. Abdomen/Pelvis CT 08/13/19 21:29 IMPRESSION: Mild medical hepatic disease. Interval postsurgical change from resection of the mass lesion arising from the right kidney. The mass lesion arising from the left kidney is larger on current examination when compared to prior.. Abdomen Ultrasound 08/13/19 22:19 IMPRESSION: Limited examination demonstrating diffuse fatty infiltration of the liver. The gallbladder is contracted and not well seen. Hepatobiliary Scan Nuclear Medicine 08/13/19 23:44 IMPRESSION: Scintigraphic knee findings as detailed above are concerning for an acute cholecystitis. Abdomen MRI 08/15/19 00:00 IMPRESSION: 1. Cholelithiasis. Mild pericholecystic fluid and gallstones. Findings may represent cholecystitis. 2. No gross duct dilatation or obstruction. No regional stones are masses. 3. Suspicious for pancreatitis. Correlate with labs and presentation. No drainable collections. Assessment & Plan - Diagnosis (1) Severe sepsis Is this a current diagnosis for this admission?: Yes (2) Gallstone Qualifiers: Cholecystitis presence: without cholecystitis Biliary obstruction: with biliary obstruction Qualified Code(s): K80.21 - Calculus of gallbladder without cholecystitis with obstruction Is this a current diagnosis for this admission?: Yes (3) Abnormal LFTs (liver function tests) Is this a current diagnosis for this admission?: Yes (4) Diabetes mellitus type 2 in obese Is this a current diagnosis for this admission?: Yes (5) Hypothyroidism Qualifiers: Hypothyroidism type: unspecified Qualified Code(s): E03.9 - Hypothyroidism, unspecified Is this a current diagnosis for this admission?: Yes (6) BMI 31.0-31.9,adult Is this a current diagnosis for this admission?: Yes (7) HTN (hypertension) Qualifiers: Hypertension type: essential hypertension Qualified Code(s): I10 - Essential (primary) hypertension Is this a current diagnosis for this admission?: Yes Plan: Restart on Lisinopril 40 mg p.o daily. Decrease IV fluid rate to 50 ml/hr. Continue all other current medication management. - Time Time Spent with patient: 25-34 minutes Level of Care: IMCU Medications reviewed and adjusted accordingly: Yes Anticipated discharge: Home Within: Other - Inpatient Certification Based on my medical assessment, after consideration of the patient's comorbidities, presenting symptoms, or acuity I expect that the services needed warrant INPATIENT care.: Yes I certify that my determination is in accordance with my understanding of Medicare's requirements for reasonable and necessary INPATIENT services [42 CFR 412.3e].: Yes Medical Necessity: Significant Comorbidiites Make Outpatient Treatment Too Risky, Need Close Monitoring Due to Risk of Patient Decompensation, Need For IV Fluids, Need For Continuous Telemetry Monitoring, Need for IV Antibiotics, Risk of Complication if Not Cared For in Hospital, Risk of Diagnosis Which Will Require Inpatient Eval/Care/Monitoring Post Hospital Care: D/C Live Hanger Documentation - Plan Summary Plan Summary: See covering attending physician orders for details about care plan
[2019-08-16] MEDS ORDERED: (PENDING PHARMACY ID) (Lisinopril [Zestril] 40 MG) PO SCH (12:15)
[2019-08-16] MEDS: LISINOPRIL 10 MG TABLET PO SCH (12:30)
[2019-08-16] MEDS: KETOROLAC TROMETHAMINE INJ/PF 30 MG/1 ML SDV IV PRN ×2 (12:34→20:58)
[2019-08-16 14:46] LABS: ALKALINE PHOSPHATASE 123 U/L (38-126); ANION GAP 6 (5-19); ASPARTATE AMINO TRANSFERASE 35 U/L (17-59); BILIRUBIN,DIRECT 0.3 mg/dL (0.0-0.4); BILIRUBIN,TOTAL 0.8 mg/dL (0.2-1.3); BLOOD UREA NITROGEN 27 mg/dL (7-20); CALCIUM 8.3 mg/dL (8.4-10.2); CARBON DIOXIDE 23 mmol/L (22-30); CHLORIDE 103 mmol/L (98-107); GLUCOSE 262 mg/dL (75-110); POTASSIUM 4.4 mmol/L (3.6-5.0); TOTAL PROTEIN 5.9 g/dL (6.3-8.2)
--- NOTE | 2019-08-16 19:36 | PDOC PROGRESS REPORT ---
Subjective Progress Note for:: 08/15/19 Subjective:: Patient seen in the recovery room. He has been doing well. He is extubated. His vital signs are noted to be stable. Currently sedated. Reason For Visit: SEPSIS, GALLSTONE Physical Exam Vital Signs: Temp Pulse Resp BP Pulse Ox 98.2 F 60 18 151/52 H 93 08/15/19 17:05 08/15/19 17:05 08/15/19 17:05 08/15/19 17:05 08/15/19 17:05 Intake & Output 08/14/19 08/15/19 08/16/19 06:59 06:59 06:59 Intake Total 4550 2120 500 Output Total 850 825 Balance 4550 1270 -325 Weight 100 kg 97.8 kg Exam: GENERAL: well-nourished and in no acute distress. Easily arousable. HEAD: Atraumatic, normocephalic. EYES: NAM, sclera anicteric, conjunctiva are normal. ENT: Moist mucous membranes. No oral ulcerations or bleeding gums noted. No obvious ear, nose or throat abnormalities noted. NECK: supple without lymphadenopathy. Trachea is central. No cervical or axillary lymphadenopathy noted. Carotids are 2+, JVD WNL LUNGS: Breath sounds clear bilaterally. No wheezes rales or rhonchi noted. No significant dullness noted on percussion. CHEST: Palpation of the chest wall shows no significant chest wall tenderness. 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 ABDOMEN: Postsurgical abdomen with some tenderness. Bowel sounds hypoactive. No guarding, no rebound. No rigidity noted . No masses appreciated. EXTREMITIES: Pedal pulses are 1-2+, no calf tenderness noted. No clubbing or cyanosis. 1+ pedal edema noted NEUROLOGICAL: Focused neurological exam showed no significant neurologic deficit. Normal speech, no focal weakness appreciated. PSYCH: Normal mood, normal affect. Judgment and insight within normal limits. SKIN: No significant ecchymosis, skin is noted to be warm. MUSCULOSKELETAL EXAM: No significant acute joint swelling noted. Results Laboratory Results: 08/15/19 05:51 08/15/19 14:30 08/15/19 08/15/19 08/15/19 05:51 05:51 05:51 WBC 7.1 RBC 3.90 L Hgb 11.3 L Hct 32.8 L MCV 84 MCH 29.0 MCHC 34.5 RDW 14.7 H Plt Count 113 L Seg Neutrophils % Not Reportable Sodium Potassium Chloride Carbon Dioxide Anion Gap BUN Creatinine Est GFR ( Amer) Glucose Calcium Magnesium 2.0 Total Bilirubin 1.3 D AST 91 H Alkaline Phosphatase 137 H Total Protein 5.7 L Albumin 3.0 L Lipase 184.9 08/15/19 14:30 WBC RBC Hgb Hct MCV MCH MCHC RDW Plt Count Seg Neutrophils % Sodium 135.3 L Potassium 3.9 Chloride 104 Carbon Dioxide 23 Anion Gap 8 BUN 20 Creatinine 1.11 Est GFR ( Amer) > 60 Glucose 120 H Calcium 8.7 Magnesium Total Bilirubin 1.2 AST 70 H Alkaline Phosphatase 146 H Total Protein 6.5 Albumin 3.3 L Lipase EKG Comments: Sinus rhythm, no acute ST-T wave changes noted. Impressions: Chest X-Ray 08/13/19 19:02 IMPRESSION: NO ACUTE RADIOGRAPHIC FINDING IN THE CHEST. Abdomen/Pelvis CT 08/13/19 21:29 IMPRESSION: Mild medical hepatic disease. Interval postsurgical change from resection of the mass lesion arising from the right kidney. The mass lesion arising from the left kidney is larger on current examination when compared to prior.. Abdomen Ultrasound 08/13/19 22:19 IMPRESSION: Limited examination demonstrating diffuse fatty infiltration of the liver. The gallbladder is contracted and not well seen. Hepatobiliary Scan Nuclear Medicine 08/13/19 23:44 IMPRESSION: Scintigraphic knee findings as detailed above are concerning for an acute cholecystitis. Abdomen MRI 08/15/19 00:00 IMPRESSION: 1. Cholelithiasis. Mild pericholecystic fluid and gallstones. Findings may represent cholecystitis. 2. No gross duct dilatation or obstruction. No regional stones are masses. 3. Suspicious for pancreatitis. Correlate with labs and presentation. No drainable collections. Assessment & Plan - Diagnosis (1) Acute cholecystitis Is this a current diagnosis for this admission?: Yes (2) Sepsis Qualifiers: Sepsis type: sepsis due to unspecified organism Sepsis acute organ dysfunction status: with acute organ dysfunction Severe sepsis shock status: without septic shock Is this a current diagnosis for this admission?: Yes (3) Chronic kidney disease Qualifiers: Chronic kidney disease stage: stage 2 (mild) Qualified Code(s): N18.2 - Chronic kidney disease, stage 2 (mild) Is this a current diagnosis for this admission?: Yes (4) Diabetes Qualifiers: Diabetes mellitus type: type 2 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 Currently patient in recovery. Recommend as you are doing with DVT prophylaxis, adequate pain control, pulmonary toilet etc. Medical doctor is adequately managing diabetes, hypertension etc. Twelve-lead EKG obtained shows no new soliz ges. We will continue to follow. - Time Time with patient: 15-25 minutes
--- NOTE | 2019-08-16 19:41 | PDOC PROGRESS REPORT ---
Subjective Progress Note for:: 08/16/19 Subjective:: Patient seen in the evening in his room.. He has been doing well. Patient laying flat in bed. Mild tachypnea noted but denies shortness of breath. He is however complaining of bilateral thigh pain. His blood pressure has been noted to be elevated. He is denying any chest arm or neck discomfort. Reason For Visit: SEPSIS, GALLSTONE Physical Exam Vital Signs: Temp Pulse Resp BP Pulse Ox 97.9 F 67 20 156/56 H 92 08/16/19 15:38 08/16/19 15:38 08/16/19 15:38 08/16/19 15:38 08/16/19 15:38 Intake & Output 08/15/19 08/16/19 08/17/19 06:59 06:59 06:59 Intake Total 2120 860 1630 Output Total 850 955 Balance 1270 -95 1630 Weight 97.8 kg 98.8 kg Exam: GENERAL: well-nourished and in no acute distress. Alert and oriented x3 HEAD: Atraumatic, normocephalic. EYES: NAM, sclera anicteric, conjunctiva are normal. ENT: Moist mucous membranes. No oral ulcerations or bleeding gums noted. No obvious ear, nose or throat abnormalities noted. NECK: supple without lymphadenopathy. Trachea is central. No cervical or axillary lymphadenopathy noted. Carotids are 2+, JVD WNL LUNGS: Breath sounds clear bilaterally. No wheezes rales or rhonchi noted. No significant dullness noted on percussion. CHEST: Palpation of the chest wall shows no significant chest wall tenderness. 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 ABDOMEN: Soft, no significant tenderness appreciated, normoactive bowel sounds. No guarding, no rebound. No rigidity noted . No masses appreciated. EXTREMITIES: Pedal pulses are 1-2+, no calf tenderness noted. No clubbing or cyanosis. 1+ pedal edema noted NEUROLOGICAL: Focused neurological exam showed no significant neurologic deficit. Normal speech, no focal weakness appreciated. PSYCH: Normal mood, normal affect. Judgment and insight within normal limits. SKIN: No significant ecchymosis, skin is noted to be warm. MUSCULOSKELETAL EXAM: No significant acute joint swelling noted. Results Laboratory Results: 08/16/19 05:31 08/16/19 14:15 08/16/19 08/16/19 08/16/19 05:31 05:31 14:15 WBC 9.6 RBC 4.19 L Hgb 12.2 L Hct 35.5 L MCV 85 MCH 29.0 MCHC 34.2 RDW 15.1 H Plt Count 133 L Seg Neutrophils % Not Reportable Sodium 135.3 L 131.8 L Potassium 4.9 D 4.4 Chloride 103 103 Carbon Dioxide 22 23 Anion Gap 10 6 BUN 26 H 27 H Creatinine 1.22 1.19 Est GFR ( Amer) > 60 > 60 Glucose 150 H 262 H Calcium 8.7 8.3 L Magnesium 2.1 Total Bilirubin 1.0 0.8 AST 49 35 Alkaline Phosphatase 135 H 123 Total Protein 6.4 5.9 L Albumin 3.2 L 3.0 L Triglycerides 253 H Cholesterol 116.95 LDL Cholesterol Direct 57 VLDL Cholesterol 50.6 H HDL Cholesterol 18 L Lipase 99.2 08/13/19 17:57 Blood Blood Culture - Final Klebsiella Pneumoniae 08/13/19 21:19 Blood Blood Culture - Final Klebsiella Pneumoniae 08/13/19 18:00 Clean Catch Midstream Urine Culture - Final NO GROWTH 2 DAYS EKG Comments: Sinus rhythm no acute ST-T wave changes noted. Telemetry shows sinus rhythm. Impressions: Chest X-Ray 08/13/19 19:02 IMPRESSION: NO ACUTE RADIOGRAPHIC FINDING IN THE CHEST. Abdomen/Pelvis CT 08/13/19 21:29 IMPRESSION: Mild medical hepatic disease. Interval postsurgical change from resection of the mass lesion arising from the right kidney. The mass lesion arising from the left kidney is larger on current examination when compared to prior.. Abdomen Ultrasound 08/13/19 22:19 IMPRESSION: Limited examination demonstrating diffuse fatty infiltration of the liver. The gallbladder is contracted and not well seen. Hepatobiliary Scan Nuclear Medicine 08/13/19 23:44 IMPRESSION: Scintigraphic knee findings as detailed above are concerning for an acute cholecystitis. Abdomen MRI 08/15/19 00:00 IMPRESSION: 1. Cholelithiasis. Mild pericholecystic fluid and gallstones. Findings may represent cholecystitis. 2. No gross duct dilatation or obstruction. No regional stones are masses. 3. Suspicious for pancreatitis. Correlate with labs and presentation. No drainable collections. Assessment & Plan - Diagnosis (1) Acute cholecystitis Is this a current diagnosis for this admission?: Yes (2) Sepsis Qualifiers: Sepsis type: sepsis due to unspecified organism Sepsis acute organ dysfunction status: with acute organ dysfunction Severe sepsis shock status: without septic shock Is this a current diagnosis for this admission?: Yes (3) Chronic kidney disease Qualifiers: Chronic kidney disease stage: stage 2 (mild) Qualified Code(s): N18.2 - Chronic kidney disease, stage 2 (mild) Is this a current diagnosis for this admission?: Yes (4) Diabetes Qualifiers: Diabetes mellitus type: type 2 Diabetes mellitus [facility] insulin use: un specified 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 His renal fu nctions have improved. His hepatic functions especially bilirubin is back to normal. Mild elevation of AST and ALT noted but they are significantly improved. Patient however is complaining of bilateral thigh pain. Etiology is not clear. No obvious bruising or trauma noted. Could be sepsis related. Patient blood pressure has been noted to be elevated. Will add carvedilol at 6.25 mg p.o. every 12. Patient to report any further problems. - Time Time with patient: 15-25 minutes Medications reviewed and adjusted accordingly: Yes
--- NOTE | 2019-08-16 19:54 | PDOC CONSULTATION ---
Consultation Consult Date: 08/14/19 Attending physician:: JIN KENYON Provider Consulted: ALEJANDRO WINTER Consult reason:: Preop clearance patient with multiple cardiac risk factors History of Present Illness Admission Date/PCP: 08/13/19 23:49 JIN KENYON MD Patient complains of: Fever with chills History of Present Illness: TRAE GUZMAN is a 69 year old male with history of diabetes mellitus type 2, hypertension, hyperlipidemia, and bilateral renal mass admitted yesterday because of acute onset of high fever. Patient had one episode of vomiting while at home. Patient had a history of stroke in June 2019. He recovered very nicely from there. Currently he is doing fine but when he came in he was noted to be very hypotensive needing 4 L of IV fluids. Patient actually was also noted to have marked elevation of bilirubin and also abnormal liver functions. His kidney functions were also noted to be worse. It is suspected that patient may have acute cholecystitis. I have been asked to evaluate patient and clear him for surgical intervention if needed. Patient's presentation is indicative of sepsis. He has gram-negative rods but we do not have any identification of source. Acute cholecystitis as source is being suspected. He is undergoing a HIDA scan. Past Medical History Cardiac Medical History: Reports: Hyperlipidema, Hypertension Denies: Atrial Fibrillation, Congestive Heart Failure, Myocardial Infarction Pulmonary Medical History: Denies: Asthma, Bronchitis, Chronic Obstructive Pulmonary Disease (COPD), Pneumonia, Tuberculosis Neurological Medical History: Reports: Ischemic CVA Denies: Migraine, Seizures Endocrine Medical History: Reports: Diabetes Mellitus Type 2, Hypothyroidism Denies: Diabetes Mellitus Type 1 Renal/ Medical History: Reports: Chronic Kidney Disease, Other - Bilateral renal masses, status post right partial nephrectomy with excision Denies: End Stage Renal Disease GI Medical History: Reports: Gastroesophageal Reflux Disease Denies: Hiatal Hernia Musculoskeltal Medical History: Denies: Arthritis Psychiatric Medical History: Denies: Attention Deficit Hyperactivity Disorder, Bipolar Disorder, Depression Hematology: Denies: Anemia, Sickle Cell Disease Past Surgical History Past Surgical History: Reports: Herniorrhaphy - Bilateral inguinal, Tonsillectomy - With adenoidectomy, Other - rt nephrectomy partial Social History Information Source: Patient Lives with: Spouse/Significant other Smoking Status: Never Smoker Frequency of Alcohol Use: Social Hx Recreational Drug Use: No Hx Prescription Drug Abuse: No - Advance Directive Resuscitation Status: Full Code Family History Family History: Reviewed & Not Pertinent Parental Family History Reviewed: Yes Children Family History Reviewed: Yes Sibling(s) Family History Reviewed.: Yes Medication/Allergy Home Medications: Aspirin [Ecotrin 81 mg EC Tablet] 81 mg PO DAILY 08/14/19 Atorvastatin Calcium [Lipitor 40 mg Tablet] 40 mg PO QHS 08/14/19 Carvedilol [Coreg 12.5 mg Tablet] 12.5 mg PO Q12 08/14/19 Clopidogrel Bisulfate [Plavix 75 mg Tablet] 75 mg PO DAILY 08/14/19 Empagliflozin [Jardiance] 25 mg PO DAILY 08/14/19 Furosemide [Lasix 20 mg Tablet] 20 mg PO MOTUWETHFR@1000 08/14/19 Glipizide [Glucotrol 5 mg Tablet] 5 mg PO BID 08/14/19 Levothyroxine Sodium [Synthroid] 200 mcg PO Q6AM 08/14/19 Lisinopril [Zestril] 40 mg PO DAILY 08/14/19 Sitagliptin Phosphate [Januvia 50 mg Tablet] 100 mg PO DAILY 08/14/19 Allergies/Adverse Reactions: No Known Allergies Allergy (Verified 08/13/19 18:02) Review of Systems Constitutional: PRESENT: as per HPI Eyes: ABSENT: visual disturbances Ears: ABSENT: hearing changes Cardiovascular: ABSENT: chest pain, dyspnea on exertion, edema, orthropnea, palpitations Respiratory: ABSENT: cough, hemoptysis Gastrointestinal: PRESENT: as per HPI, nausea, vomiting. ABSENT: abdominal pain, constipation, diarrhea, hematemesis, hematochezia Genitourinary: ABSENT: dysuria, hematuria Musculoskeletal: ABSENT: joint swelling Integumentary: ABSENT: rash, wounds Neurological: ABSENT: abnormal gait, abnormal speech, confusion, dizziness, focal weakness, syncope Psychiatric: ABSENT: anxiety, depression, homidical ideation, suicidal ideation Endocrine: ABSENT: cold intolerance, heat intolerance, polydipsia, polyuria Hematologic/Lymphatic: ABSENT: easy bleeding, easy bruising Physical Exam Vital Signs: Temp Pulse Resp BP Pulse Ox 97.9 F 67 20 156/56 H 92 08/16/19 15:38 08/16/19 15:38 08/16/19 15:38 08/16/19 15:38 08/16/19 15:38 Intake & Output 08/15/19 08/16/19 08/17/19 06:59 06:59 06:59 Intake Total 2120 860 1630 Output Total 850 955 Balance 1270 -95 1630 Weight 97.8 kg 98.8 kg General appearance: PRESENT: no acute distress, well-developed, well-nourished Head exam: PRESENT: atraumatic, normocephalic Eye exam: PRESENT: conjunctiva pink, EOMI, PERRLA. ABSENT: scleral icterus Ear exam: PRESENT: normal external ear exam Mouth exam: PRESENT: moist, tongue midline Neck exam: ABSENT: carotid bruit, JVD, lymphadenopathy, thyromegaly Respiratory exam: PRESENT: clear to auscultation corrine. ABSENT: rales, rhonchi, wheezes Cardiovascular exam: PRESENT: RRR. ABSENT: diastolic murmur, rubs, systolic murmur Pulses: PRESENT: normal dorsalis pedis pul, +1 pedal pulses bilateral Vascular exam: PRESENT: normal capillary refill GI/Abdominal exam: PRESENT: normal bowel sounds, soft. ABSENT: distended, guarding, mass, organolmegaly, rebound, tenderness Rectal exam: PRESENT: deferred Extremities exam: PRESENT: full ROM. ABSENT: calf tenderness, clubbing, pedal edema Neurological exam: PRESENT: alert, awake, oriented to person, oriented to place, oriented to time, oriented to situation, CN II-XII grossly intact. ABSENT: motor sensory deficit Psychiatric exam: PRESENT: appropriate affect, normal mood. ABSENT: homicidal ideation, suicidal ideation Skin exam: PRESENT: dry, intact, warm. ABSENT: cyanosis, rash Results Laboratory Results: 08/16/19 05:31 08/16/19 14:15 08/16/19 08/16/19 08/16/19 05:31 05:31 14:15 WBC 9.6 RBC 4.19 L Hgb 12.2 L Hct 35.5 L MCV 85 MCH 29.0 MCHC 34.2 RDW 15.1 H Plt Count 133 L Seg Neutrophils % Not Reportable Sodium 135.3 L 131.8 L Potassium 4.9 D 4.4 Chloride 103 103 Carbon Dioxide 22 23 Anion Gap 10 6 BUN 26 H 27 H Creatinine 1.22 1.19 Est GFR ( Amer) > 60 > 60 Glucose 150 H 262 H Calcium 8.7 8.3 L Magnesium 2.1 Total Bilirubin 1.0 0.8 AST 49 35 Alkaline Phosphatase 135 H 123 Total Protein 6.4 5.9 L Albumin 3.2 L 3.0 L Triglycerides 253 H Cholesterol 116.95 LDL Cholesterol Direct 57 VLDL Cholesterol 50.6 H HDL Cholesterol 18 L Lipase 99.2 08/13/19 17:57 Blood Blood Culture - Final Klebsiella Pneumoniae 08/13/19 21:19 Blood Blood Culture - Final Klebsiella Pneumoniae 08/13/19 18:00 Clean Catch Midstream Urine Culture - Final NO GROWTH 2 DAYS EKG Comments: Sinus rhythm with minor nonspecific T wave changes. Impressions: Chest X-Ray 08/13/19 19:02 IMPRESSION: NO ACUTE RADIOGRAPHIC FINDING IN THE CHEST. Abdomen/Pelvis CT 08/13/19 21:29 IMPRESSION: Mild medical hepatic disease. Interval postsurgical change from resection of the mass lesion arising from the right kidney. The mass lesion arising from the left kidney is larger on current examination when compared to prior.. Abdomen Ultrasound 08/13/19 22:19 IMPRESSION: Limited examination demonstrating diffuse fatty infiltration of the liver. The gallbladder is contracted and not well seen. Hepatobiliary Scan Nuclear Medicine 08/13/19 23:44 IMPRESSION: Scintigraphic knee findings as detailed above are concerning for an acute cholecystitis. Abdomen MRI 08/15/19 00:00 IMPRESSION: 1. Cholelithiasis. Mild pericholecystic fluid and gallstones. Findings may represent cholecystitis. 2. No gross duct dilatation or obstruction. No regional stones are masses. 3. Suspicious for pancreatitis. Correlate with labs and presentation. No drainable collections. 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 insulin use status Chronic kidney disease stage: stage 2 (mild) Is this a current diagnosis for this admission?: Yes (4) Hyperlipidemia Qualifiers: Hyperlipidemia type: unspecified Qualified Code(s): E78.5 - Hyperlipidemia, unspecified Is this a current diagnosis for this admission?: Yes (5) Hypertension Qualifiers: Hypertension type: essential hypertension Qualified Code(s): I10 - Essential (primary) hypertension Is this a current diagnosis for this admission?: Yes (6) Abnormal LFTs (liver function tests) Is this a current diagnosis for this admission?: Yes - Notes Notes: Patient is noted to have abnormal liver functions. Patient also has positive blood cultures. EKG showing nonacute changes. Review of my records shows that patient had recent 2D echo which shows normal LVEF. A recent nuclear stress test was also of low risk. At this point we are trying to evaluate patient's cause of sepsis. Patient is undergoing HIDA scan. Patient also being followed by surgical team. I feel patient would be considered acceptable risk for surgery but he told me that he wishes to have his surgery performed if needed in [place] as he has more family support. Right now a firm diagnosis for his sepsis and whether surgery is needed is not known. Will continue with IV fluids at 100 cc/h. This was discussed with Dr. Kenyon. Do not feel a repeat echocardiogram is needed in the absence of acute EKG changes or any cardiac evaluation is indicated. We will continue to follow. Patient has been told that I will not be in town on Saturday but will be available for phone call. Dr. Kenyon also informed of this. - Time Time Spent: 30 to 50 Minutes Medications reviewed and adjusted accordingly: Yes
[2019-08-16] MEDS: CARVEDILOL 3.125 MG TABLET PO SCH (21:42)
[2019-08-17] MEDS: LEVOTHYROXINE SODIUM 0.1 MG TABLET PO SCH (05:44)
[2019-08-17 09:23] LABS: ABSOLUTE BASOPHILS # (AUTO) 0.1 10^3/uL (0.0-0.2); ABSOLUTE EOSINOPHILS # (AUTO) 0.2 10^3/uL (0.0-0.6); ABSOLUTE LYMPHOCYTES (AUTO) 0.5 10^3/uL (0.5-4.7); ABSOLUTE MONOCYTES (AUTO) 0.8 10^3/uL (0.1-1.4); ABSOLUTE NEUT (AUTO) 7.3 10^3/uL (1.7-8.2); BASOPHILS % (AUTO) 0.6 % (0-2); EOSINOPHILS % (AUTO) 1.8 % (0-6); HEMATOCRIT 34.4 % (37.9-51.0); HEMOGLOBIN 11.7 g/dL (13.5-17.0); LYMPHOCYTES % (AUTO) 5.5 % (13-45); MEAN CORPUSCULAR HEMOGLOBIN 28.9 pg (27.0-33.4); MEAN CORPUSCULAR VOLUME 85 fl (80-97); MONOCYTES % (AUTO) 8.8 % (3-13); PLATELET COUNT 132 10^3/uL (150-450); RED BLOOD COUNT 4.05 10^6/uL (4.35-5.55); RED CELL DISTRIBUTION WIDTH 14.8 % (11.5-14.0); SEGMENTED NEUTROPHILS % (AUTO) 83.3 % (42-78); TOTAL CELLS COUNTED % (AUTO) 100 %; WHITE BLOOD COUNT 8.8 10^3/uL (4.0-10.5)
[2019-08-17 09:44] LABS: ALBUMIN 3.1 g/dL (3.5-5.0); ALKALINE PHOSPHATASE 130 U/L (38-126); ANION GAP 6 (5-19); ASPARTATE AMINO TRANSFERASE 28 U/L (17-59); BILIRUBIN,DIRECT 0.2 mg/dL (0.0-0.4); BILIRUBIN,TOTAL 0.9 mg/dL (0.2-1.3); BLOOD UREA NITROGEN 24 mg/dL (7-20); CALCIUM 8.8 mg/dL (8.4-10.2); CARBON DIOXIDE 23 mmol/L (22-30); CHLORIDE 104 mmol/L (98-107); CREATINE KINASE 30 U/L (55-170); GLUCOSE 180 mg/dL (75-110); POTASSIUM 4.2 mmol/L (3.6-5.0); TOTAL PROTEIN 6.1 g/dL (6.3-8.2)
[2019-08-17 09:50] LABS: VANCOMYCIN,TROUGH 10.4 ug/mL (5.0-20.0)
[2019-08-17] MEDS: KETOROLAC TROMETHAMINE INJ/PF 30 MG/1 ML SDV IV PRN (09:58)
[2019-08-17] MEDS: PANTOPRAZOLE SODIUM 40 MG VIAL IV SCH ×2 (09:59→21:13)
[2019-08-17] MEDS: IBUPROFEN 600 MG TABLET PO PRN ×2 (09:59→15:48)
[2019-08-17] MEDS: LISINOPRIL 10 MG TABLET PO SCH (09:59)
[2019-08-17] MEDS: CARVEDILOL 3.125 MG TABLET PO SCH ×2 (09:59→21:13)
[2019-08-17] MEDS: INSULIN LISPRO 100 UNIT/ML 3 ML VIAL SUBCUT SCH ×4 (10:00→21:47)
[2019-08-17] MEDS: ENOXAPARIN SODIUM INJ 30 MG/0.3 ML DISP.SYRIN SUBCUT SCH (10:00)
[2019-08-17] MEDS: CEFEPIME HCL 2 GM in DEXTROSE 5%-WATER 50 ML IV SCH ×2 (10:01→21:13)
--- NOTE | 2019-08-17 10:44 | PDOC PROGRESS REPORT ---
Subjective Progress Note for:: 08/17/19 Subjective:: Patient underwent for the laparoscopic cholecystectomy and weekend Patient's white count is all normal patient's blood cultures grew up the Klebsiella currently sensitive to the cefepime Is remained afebrile Patient's denied any chest pain no abdominal pain no nausea no vomiting Only complaint patient is complaining of bilateral hip pain and leg pain Reason For Visit: SEPSIS, GALLSTONE Physical Exam Vital Signs: Temp Pulse Resp BP Pulse Ox 98.1 F 65 15 154/60 H 94 08/17/19 07:22 08/17/19 07:22 08/17/19 07:22 08/17/19 07:22 08/17/19 07:22 Intake & Output 08/16/19 08/17/19 08/18/19 06:59 06:59 06:59 Intake Total 860 2450 Output Total 955 Balance -95 2450 Weight 98.8 kg 96.4 kg General appearance: PRESENT: no acute distress, well-developed, well-nourished Head exam: PRESENT: atraumatic, normocephalic Eye exam: PRESENT: conjunctiva pink, EOMI, PERRLA. ABSENT: scleral icterus Ear exam: PRESENT: normal external ear exam Mouth exam: PRESENT: moist, tongue midline Neck exam: PRESENT: full ROM. ABSENT: carotid bruit, JVD, lymphadenopathy, thyromegaly Respiratory exam: PRESENT: clear to auscultation corrine Cardiovascular exam: PRESENT: RRR. ABSENT: diastolic murmur, rubs, systolic murmur Pulses: PRESENT: normal dorsalis pedis pul, +2 pedal pulses bilateral Vascular exam: PRESENT: normal capillary refill GI/Abdominal exam: PRESENT: normal bowel sounds, soft. ABSENT: distended, guarding, mass, organolmegaly, rebound, tenderness Rectal exam: PRESENT: deferred Musculoskeletal exam: PRESENT: ambulatory Neurological exam: PRESENT: alert, awake, oriented to person, oriented to place, oriented to time, oriented to situation, CN II-XII grossly intact. ABSENT: rosmery r sensory deficit Psychiatric exam: PRESENT: appropriate affect, normal mood. ABSENT: homicidal ideation, suicidal ideation Skin exam: PRESENT: dry, intact, warm. ABSENT: cyanosis, rash Results Laboratory Results: 08/17/19 08:57 08/17/19 08:57 08/16/19 08/17/1908/16/20 14:15 08:57 08:57 WBC 8.8 RBC 4.05 L Hgb 11.7 L Hct 34.4 L MCV 85 MCH 28.9 MCHC 34.0 RDW 14.8 H Plt Count 132 L Seg Neutrophils % 83.3 H Sodium 131.8 L Potassium 4.4 Chloride 103 Carbon Dioxide 23 Anion Gap 6 BUN 27 H Creatinine 1.19 Cancelled Est GFR ( Amer) > 60 Cancelled Est GFR (Non-Af Amer) Cancelled Glucose 262 H Calcium 8.3 L Total Bilirubin 0.8 AST 35 Alkaline Phosphatase 123 Total Protein 5.9 L Albumin 3.0 L 08/17/19 08:57 WBC RBC Hgb Hct MCV MCH MCHC RDW Plt Count Seg Neutrophils % Sodium 133.1 L Potassium 4.2 Chloride 104 Carbon Dioxide 23 Anion Gap 6 BUN 24 H Creatinine 1.13 Est GFR ( Amer) > 60 Est GFR (Non-Af Amer) Glucose 180 H Calcium 8.8 Total Bilirubin 0.9 AST 28 Alkaline Phosphatase 130 H Total Protein 6.1 L Albumin 3.1 L 08/13/19 17:57 Blood Blood Culture - Final Klebsiella Pneumoniae 08/13/19 21:19 Blood Blood Culture - Final Klebsiella Pneumoniae 08/13/19 18:00 Clean Catch Midstream Urine Culture - Final NO GROWTH 2 DAYS 08/17/19 08:57 Creatine Kinase 30 L Impressions: Chest X-Ray 08/13/19 19:02 IMPRESSION: NO ACUTE RADIOGRAPHIC FINDING IN THE CHEST. Abdomen/Pelvis CT 08/13/19 21:29 IMPRESSION: Mild medical hepatic disease. Interval postsurgical change from resection of the mass lesion arising from the right kidney. The mass lesion arising from the left kidney is larger on current examination when compared to prior.. Abdomen Ultrasound 08/13/19 22:19 IMPRESSION: Limited examination demonstrating diffuse fatty infiltration of the liver. The gallbladder is contracted and not well seen. Hepatobiliary Scan Nuclear Medicine 08/13/19 23:44 IMPRESSION: Scintigraphic knee findings as detailed above are concerning for an acute cholecystitis. Abdomen MRI 08/15/19 00:00 IMPRESSION: 1. Cholelithiasis. Mild pericholecystic fluid and gallstones. Findings may rep resent cholecystitis. 2. No gross duct dilatation or obstruction. No regional stones are masses. 3. Suspicious for pancreatitis. Correlate with labs and presentation. No drainable collections. Assessment & Plan - Diagnosis (1) Fever Qualifiers: Fever type: unspecified Qualified Code(s): R50.9 - Fever, unspecified Is this a current diagnosis for this admission?: Yes Plan: Mostly gram-negative sepsis currently resolved (2) Abnormal LFTs (liver function tests) Is this a current diagnosis for this admission?: Yes Plan: Status post cholecystectomy currently all stable and improving (3) Severe sepsis Is this a current diagnosis for this admission?: Yes Plan: Continues IV cefepime (4) Chronic kidney disease Qualifiers: Chronic kidney disease stage: stage 2 (mild) Qualified Code(s): N18.2 - Chronic kidney disease, stage 2 (mild) Is this a current diagnosis for this admission?: Yes Plan: Currently all stable (5) Diabetes Qualifiers: Diabetes mellitus type: type 2 Diabetes mellitus halfway insulin use: 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 Chronic kidney disease stage: stage 2 (mild) Is this a current diagnosis for this admission?: Yes Plan: Continues a sliding scale (6) Hyperlipidemia Qualifiers: Hyperlipidemia type: unspecified Qualified Code(s): E78.5 - Hyperlipidemia, unspecified Is this a current diagnosis for this admission?: Yes Plan: Currently all stable will restart the cholesterol medicines once the LFTs all improving with the current (7) Hypertension Qualifiers: Hypertension type: essential hypertension Qualified Code(s): I10 - Essential (primary) hypertension Is this a current diagnosis for this admission?: Yes Plan: Currently all stable (8) Renal mass Is this a current diagnosis for this admission?: Yes Plan: 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 Patient still has the left renal mass being followed closely by his urologist in [place]. I think patient just needs to follow-up with his urologist as an outpatient. I do not think we need to do anything acutely during this hospitalization for this. Imaging studies did not show any of obstructive uropathy. (9) Diastolic congestive heart failure Qualifiers: Heart failure chronicity: chronic Qualified Code(s): I50.32 - Chronic diastolic (congestive) heart failure Is this a current diagnosis for this admission?: Yes Plan: Currently follow with the cardiology (10) Gallstone Qualifiers: Cholecystitis presence: without cholecystitis Biliary obstruction: with biliary obstruction Qualified Code(s): K80.21 - Calculus of gallbladder without cholecystitis with obstruction Is this a current diagnosis for this admission?: Yes Plan: Status post surgery (11) Leg pain Qualifiers: Laterality: bilateral Qualified Code(s): M79.604 - Pain in right leg; M79.605 - Pain in left leg Is this a current diagnosis for this admission?: Yes Plan: Most likely due to the underlying sepsis will get the physical therapy evaluations and also get the ultrasound for the lower extremities - Time Time Spent with patient: 25-34 minutes Level of Care: IMCU Medications reviewed and adjusted accordingly: Yes Anticipated discharge: Home with Homehealth Within: Other - Plan Summary Plan Summary: Continues on IV antibiotic repeat the blood culture get the ultrasound of the lower extremities
--- NOTE | 2019-08-17 14:19 | RADIOLOGY REPORT (SQ) ---
EXAM DESCRIPTION: VENOUS BILATERAL LOWER IMAGES COMPLETED DATE/TIME: 08/17/2019 1:47 pm REASON FOR STUDY: leg pain s/p surgery COMPARISON: None. TECHNIQUE: Dynamic and static broussard scale and color images acquired of both lower extremity venous sy stems. Selected spectral images acquired with additional compression and augmentation maneuvers. Imag es stored on PACS. LIMITATIONS: None. FINDINGS: RIGHT LEG COMMON FEMORAL AND FEMORAL: Normal phasicity, compression and augmentation. No visualized echogenic m aterial on broussard scale. No defects on color images. POPLITEAL: Normal compression and augmentation. No visualized echogenic material on broussard scale. No de fects on color images. CALF VESSELS: Normal compression and augmentation. No visualized echogenic material on broussard scale. No defects on color image. GSV AND SSV: Normal compression. No visualized echogenic material on broussard scale. No defects on color images. ANY DEEP VENOUS INSUFFICIENCY: Not evaluated. ANY EVIDENCE OF POPLITEAL CYST: No. OTHER: No other significant finding. LEFT LEG COMMON FEMORAL AND FEMORAL: Normal phasicity, compression and augmentation. No visualized echogenic m aterial on broussard scale. No defects on color images. POPLITEAL: Normal compression and augmentation. No visualized echogenic material on broussard scale. No de fects on color images. CALF VESSELS: Normal compression and augmentation. No visualized echogenic material on broussard scale. No defects on color images. GSV AND SSV: Normal compression. No visualized echogenic material on broussard scale. No defects on color images. ANY DEEP VENOUS INSUFFICIENCY: Not evaluated. ANY EVIDENCE POPLITEAL CYST: No. OTHER: No other significant finding. IMPRESSION: NO EVIDENCE DVT OR SVT IN EITHER LEG. TECHNICAL DOCUMENTATION: JOB ID: [id number] 2010 [employer]- All Rights Reserved Reading location - IP/workstation name: [email or web address]
[2019-08-18] MEDS: LEVOTHYROXINE SODIUM 0.1 MG TABLET PO SCH (05:50)
[2019-08-18 06:02] LABS: HEMATOCRIT 33.8 % (37.9-51.0); HEMOGLOBIN 11.6 g/dL (13.5-17.0); MEAN CORPUSCULAR HGB CONC 34.3 g/dL (32.0-36.0); MEAN CORPUSCULAR VOLUME 85 fl (80-97); PLATELET COUNT 139 10^3/uL (150-450); RED CELL DISTRIBUTION WIDTH 14.7 % (11.5-14.0)
[2019-08-18 06:17] LABS: ALBUMIN 3.2 g/dL (3.5-5.0); ALKALINE PHOSPHATASE 145 U/L (38-126); ANION GAP 8 (5-19); ASPARTATE AMINO TRANSFERASE 29 U/L (17-59); BILIRUBIN,DIRECT 0.2 mg/dL (0.0-0.4); BILIRUBIN,TOTAL 0.8 mg/dL (0.2-1.3); BLOOD UREA NITROGEN 22 mg/dL (7-20); CALCIUM 8.8 mg/dL (8.4-10.2); CARBON DIOXIDE 25 mmol/L (22-30); CHLORIDE 103 mmol/L (98-107); GLUCOSE 173 mg/dL (75-110); POTASSIUM 4.2 mmol/L (3.6-5.0); TOTAL PROTEIN 6.3 g/dL (6.3-8.2)
[2019-08-18 06:47] LABS: ABSOLUTE LYMPHOCYTES# (MANUAL) 0.1 10^3/uL (0.5-4.7); ABSOLUTE MONOCYTES # (MANUAL) 0.9 10^3/uL (0.1-1.4); BASOPHILS % (MANUAL) 0 % (0-2); EOSINOPHILS % (MANUAL) 1 % (0-6); LYMPHOCYTES % (MANUAL) 1 % (13-45); METAMYELOCYTES % (MANUAL) 1 % (0-1); MONOCYTES % (MANUAL) 11 % (3-13); SEGMENTED NEUTROPHILS % (MAN) 83 % (42-78); TOTAL CELLS COUNTED 100
[2019-08-18 06:48] LABS: MYELOCYTES % (MANUAL) 1 % (0); PROMYELOCYTES % (MANUAL) 2 % (0)
[2019-08-18 06:49] LABS: ANISOCYTOSIS SLIGHT; OVALOCYTES SLIGHT; POLYCHROMASIA SLIGHT; TEAR DROP CELLS SLIGHT
[2019-08-18 06:52] LABS: PLATELET COMMENT DECREASED
[2019-08-18] MEDS: IBUPROFEN 600 MG TABLET PO PRN ×2 (08:12→20:16)
[2019-08-18] MEDS: INSULIN LISPRO 100 UNIT/ML 3 ML VIAL SUBCUT SCH ×4 (08:12→21:59)
[2019-08-18] MEDS: CARVEDILOL 3.125 MG TABLET PO SCH (09:18)
[2019-08-18] MEDS: LISINOPRIL 10 MG TABLET PO SCH (09:18)
[2019-08-18] MEDS: PANTOPRAZOLE SODIUM 40 MG VIAL IV SCH ×2 (09:19→21:53)
[2019-08-18] MEDS: CEFEPIME HCL 2 GM in DEXTROSE 5%-WATER 50 ML IV SCH (09:22)
[2019-08-18] MEDS: ENOXAPARIN SODIUM INJ 30 MG/0.3 ML DISP.SYRIN SUBCUT SCH (09:22)
--- NOTE | 2019-08-18 09:49 | PDOC PROGRESS REPORT ---
Subjective Progress Note for:: 08/18/19 Subjective:: Patient is currently doing much better Walking the hallway without any problems no leg pain anymore Patient ultrasound is negative for any DVT Patient's denied any chest pain no short of breath No abdominal pain no fever no chills Patient's expressed to go home Since repeat blood culture was done yesterday still pending Reason For Visit: SEPSIS, GALLSTONE Physical Exam Vital Signs: Temp Pulse Resp BP Pulse Ox 98.0 F 59 L 18 184/61 H 96 08/18/19 07:36 08/18/19 07:36 08/18/19 07:36 08/18/19 07:36 08/18/19 07:36 Intake & Output 08/17/19 08/18/19 08/19/19 06:59 06:59 06:59 Intake Total 2450 2504 Balance 2450 2504 Weight 96.4 kg 94.3 kg General appearance: PRESENT: no acute distress, well-developed, well-nourished Head exam: PRESENT: atraumatic, normocephalic Eye exam: PRESENT: conjunctiva pink, EOMI, PERRLA. ABSENT: scleral icterus Ear exam: PRESENT: normal external ear exam Mouth exam: PRESENT: moist, tongue midline Neck exam: PRESENT: full ROM. ABSENT: carotid bruit, JVD, lymphadenopathy, thyromegaly Respiratory exam: PRESENT: clear to auscultation corrine Cardiovascular exam: PRESENT: RRR. ABSENT: diastolic murmur, rubs, systolic murmur Pulses: PRESENT: normal dorsalis pedis pul, +2 pedal pulses bilateral Vascular exam: PRESENT: normal capillary refill GI/Abdominal exam: PRESENT: normal bowel sounds, soft. ABSENT: distended, guarding, mass, organolmegaly, rebound, tenderness Rectal exam: PRESENT: deferred Musculoskeletal exam: PRESENT: ambulatory Neurological exam: PRESENT: alert, awake, oriented to person, oriented to place, oriented to time, oriented to situation, CN II-XII grossly intact. ABSENT: motor sensory deficit Psychiatric exam: PRESENT: appropriate affect, normal mood. ABSENT: homicidal ideation, suicidal ideation Skin exam: PRESENT: dry, intact, warm. ABSENT: cyanosis, rash Results Laboratory Results: 08/18/19 05:29 08/18/19 05:29 08/17/19 08/18/19 08/18/19 08:57 05:29 05:29 WBC 8.0 RBC 4.00 L Hgb 11.6 L Hct 33.8 L MCV 85 MCH 29.0 MCHC 34.3 RDW 14.7 H Plt Count 139 L Seg Neutrophils % Not Reportable Sodium 133.1 L 135.8 L Potassium 4.2 4.2 Chloride 104 103 Carbon Dioxide 23 25 Anion Gap 6 8 BUN 24 H 22 H Creatinine 1.13 1.09 Est GFR ( Amer) > 60 > 60 Glucose 180 H 173 H Calcium 8.8 8.8 Total Bilirubin 0.9 0.8 AST 28 29 Alkaline Phosphatase 130 H 145 H Total Protein 6.1 L 6.3 Albumin 3.1 L 3.2 L 08/13/19 17:57 Blood Blood Culture (PCR) - Final Klebsiella Pneumoniae 08/13/19 17:57 Blood Blood Culture - Final Klebsiella Pneumoniae 08/17/19 08:57 Creatine Kinase 30 L Impressions: Chest X-Ray 08/13/19 19:02 IMPRESSION: NO ACUTE RADIOGRAPHIC FINDING IN THE CHEST. Abdomen/Pelvis CT 08/13/19 21:29 IMPRESSION: Mild medical hepatic disease. Interval postsurgical change from resection of the mass lesion arising from the right kidney. The mass lesion arising from the left kidney is larger on current examination when compared to prior.. Abdomen Ultrasound 08/13/19 22:19 IMPRESSION: Limited examination demonstrating diffuse fatty infiltration of the liver. The gallbladder is contracted and not well seen. Hepatobiliary Scan Nuclear Medicine 08/13/19 23:44 IMPRESSION: Scintigraphic knee findings as detailed above are concerning for an acute cholecystitis. Abdomen MRI 08/15/19 00:00 IMPRESSION: 1. Cholelithiasis. Mild pericholecystic fluid and gallstones. Findings may represent cholecystitis. 2. No gross duct dilatation or obstruction. No regional stones are masses. 3. Suspicious for pancreatitis. Correlate with labs and presentation. No drainable collections. Venous Doppler Study 08/17/19 00:00 IMPRESSION: NO EVIDENCE DVT OR SVT IN EITHER LEG. Assessment & Plan - Diagnosis (1) Fever Qualifiers: Fever type: unspecified Qualified Code(s): R50.9 - Fever, unspecified Is this a current diagnosis for this admission?: Yes Plan: Mostly gram-negative sepsis currently resolved (2) Abnormal LFTs (liver function tests) Is this a current diagnosis for this admission?: Yes Plan: Currently all resolved (3) Severe sepsis Is this a current diagnosis for this admission?: Yes Plan: I think we will discharge the patient's with the p.o. 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 Chronic kidney disease stage: stage 2 (mild) Is this a current diagnosis for this admission?: Yes Plan: We will go to resume the patient's home medications before the discharge (6) Hyperlipidemia Qualifiers: Hyperlipidemia type: unspecified Qualified Code(s): E78.5 - Hyperlipidemia, unspecified Is this a current diagnosis for this admission?: Yes Plan: Currently all stable will restart the cholesterol medicines once the LFTs all improving with the current (7) Hypertension Qualifiers: Hypertension type: essential hypertension Qualified Code(s): I10 - Essential (primary) hypertension Is this a current diagnosis for this admission?: Yes Plan: Currently all stable (8) Renal mass Is this a current diagnosis for this admission?: Yes Plan: 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 Patient still has the left renal mass being followed closely by his urologist in [place]. I think patient just needs to follow-up with his urologist as an outpatient. I do not think we need to do anything acutely during this hospitalization for this. Imaging studies did not show any of obstructive uropathy. (9) Diastolic congestive heart failure Qualifiers: Heart failure chronicity: chronic Qualified Code(s): I50.32 - Chronic diastolic (congestive) heart failure Is this a current diagnosis for this admission?: Yes Plan: Currently follow with the cardiology (10) Gallstone Qualifiers: Cholecystitis presence: without cholecystitis Biliary obstruction: with b iliary obstruction Qualified Code(s): K80.21 - Calculus of gallbladder without cholecystitis with obstruction Is this a current diagnosis for this admission?: Yes Plan: Status post cholecystectomy (11) Leg pain Qualifiers: Laterality: bilateral Qualified Code(s): M79.604 - Pain in right leg; M79.605 - Pain in left leg Is this a current diagnosis for this admission?: Yes Plan: Currently all resolved - Time Time Spent with patient: 15-24 minutes Level of Care: IMCU Medications reviewed and adjusted accordingly: Yes Anticipated discharge: Home Within: within 24 hours - Plan Summary Plan Summary: Continues the current medication hopefully discharge tomorrow if remains stable and afebrile
[2019-08-18 13:22] LABS: PATH REVIEW PATHOLOGIST REVIEWED
[2019-08-18] MEDS ORDERED: CARVEDILOL 6.25 MG TABLET PO ONE (20:00)
[2019-08-18] MEDS: CARVEDILOL 6.25 MG TABLET PO SCH (21:51)
[2019-08-18] MEDS: CIPROFLOXACIN HCL 500 MG TABLET PO SCH (21:51)
[2019-08-19] MEDS: LEVOTHYROXINE SODIUM 0.1 MG TABLET PO SCH (06:27)
[2019-08-19] MEDS: INSULIN LISPRO 100 UNIT/ML 3 ML VIAL SUBCUT SCH (08:16)
[2019-08-19] MEDS: CIPROFLOXACIN HCL 500 MG TABLET PO SCH (09:05)
[2019-08-19] MEDS: LISINOPRIL 10 MG TABLET PO SCH (09:05)
[2019-08-19] MEDS: IBUPROFEN 600 MG TABLET PO PRN (09:05)
[2019-08-19] MEDS: ENOXAPARIN SODIUM INJ 30 MG/0.3 ML DISP.SYRIN SUBCUT SCH (09:06)
[2019-08-19] MEDS: PANTOPRAZOLE SODIUM 40 MG VIAL IV SCH (09:06)
[2019-08-19] MEDS: CARVEDILOL 6.25 MG TABLET PO SCH (09:06)
--- NOTE | 2019-08-19 09:41 | PDOC DISCHARGE SUMMARY ---
Impression - Admit/DC Date/PCP Admission Date/Primary Care Provider: 08/13/19 23:49 JIN KENYON MD Discharge Date: 08/19/19 - Discharge Diagnosis (1) Fever Is this a current diagnosis for this admission?: Yes (2) Abnormal LFTs (liver function tests) Is this a current diagnosis for this admission?: Yes (3) Severe sepsis Is this a current diagnosis for this admission?: Yes (4) Chronic kidney disease Is this a current diagnosis for this admission?: Yes (5) Diabetes Is this a current diagnosis for this admission?: Yes (6) Hyperlipidemia Is this a current diagnosis for this admission?: Yes (7) Hypertension Is this a current diagnosis for this admission?: Yes (8) Renal mass Is this a current diagnosis for this admission?: Yes (9) Diastolic congestive heart failure Is this a current diagnosis for this admission?: Yes (10) Gallstone Is this a current diagnosis for this admission?: Yes (11) Leg pain Is this a current diagnosis for this admission?: Yes (12) Acute cholecystitis Is this a current diagnosis for this admission?: Yes - Additional Information Resuscitation Status: Full Code Discharge Diet: Diabetic Discharge Activity: Activity As Tolerated Referrals: JIN KENYON MD [Primary Care Provider] - 08/25/19 11:00 am JING CHAU MD [ACTIVE STAFF] - 08/21/19 3:15 pm Prescriptions: Ciprofloxacin HCl [Cipro 500 mg Tablet] 500 mg PO Q12 #14 tablet Home Medications: Aspirin [Ecotrin 81 mg EC Tablet] 81 mg PO DAILY 08/14/19 Carvedilol [Coreg 12.5 mg Tablet] 12.5 mg PO Q12 08/14/19 Empagliflozin [Jardiance] 25 mg PO DAILY 08/14/19 Glipizide [Glucotrol 5 mg Tablet] 5 mg PO BID 08/14/19 Levothyroxine Sodium [Synthroid] 200 mcg PO Q6AM 08/14/19 Lisinopril [Zestril] 40 mg PO DAILY 08/14/19 Sitagliptin Phosphate [Januvia 50 mg Tablet] 100 mg PO DAILY 08/14/19 Ciprofloxacin HCl [Cipro 500 mg Tablet] 500 mg PO Q12 #14 tablet 08/19/19 History of Present Illiness History of Present Illness: TRAE GUZMAN is a 69 year old male Is a 69-year-old male with a recent history of the stroke history of blood type 2 diabetes hypertension hyperlipidemia history of the renal mass status post surgery on the right side pending left-sided [place] history of diastolic heart failure came to the emergency department with the complaining of fever 103 started today According to the patient this morning patient had no vomiting and nausea then after patient sister suddenly started the fever Patient's denied any abdominal pain no cough no congestions No contact with any COVID No chest pain no shortness of the breath Patient's initial work-up in the ER blood pressure was low patient's lactic acid was elevated white count was also elevated and patient's LFTs also elevated with a bilirubin Patient CT of the abdomen pelvis did not show any acute cholecystitis or CBD stone ultrasound of the abdomen did not show any CBD stone Patient is have a completely benign abdomen no abdominal pain Patient's other blood work is all stable Patient received IV antibiotics vancomycin and cefepime in the ER for the sepsis protocols ER physician discussed with the surgery and myself discussed with the surgery and suggest to admit the patient and order the HIDA scan in the morning At this point will admit the patient with a sepsis work-up Also discussed with the ICU by ER physicians no need for ICU placement admit in the IMCU and continue to monitor Patient is received the 3 L of the fluid in the ER Patient's recent echocardiogram was done with EF was normal Patient's other than that when I saw in the ER alert awake oriented denied any complaint feeling better no abdominal pain No headache Hospital Course Hospital Course: This is a 69-year-old male's present in the emergency department with the fever and chills patient is also hypotensive was diagnosed with the severe sepsis the grew up organism Klebsiella Patient initially treated with the IV antibiotic patient's COVID test initially was all negative Patient also found the gallstone in found to be a cholecystitis and a HIDA scan and patient's LFT was also elevated Patient seen by general surgery underwent for the lap cholecystectomy which is the source of the infections and patient is feeling much better Patient's organism sensitive to the cefepime and then switched to the p.o. Cipro on discharge Some subsequent blood culture is also negative Patient seen by the cardiology and nephrology all stable At this point patient's LFTs are coming down and other blood work is all stable Patient is expressed to go home discussed with the patient and the regarding the patient's current conditions Surgery wants to follow outpatient Patient is discharged with home health p.o. antibiotic Patient's Lipitor currently hold restart the aspirin Plavix currently hold Follow in 1 week restart the Plavix and the Lipitor after repeat the blood work Physical Exam Vital Signs: Temp Pulse Resp BP Pulse Ox 97.4 F 55 L 18 176/61 H 98 08/19/19 08:32 08/19/19 09:04 08/19/19 08:32 08/19/19 09:04 08/19/19 08:32 Intake & Output 08/18/19 08/19/19 08/20/19 06:59 06:59 06:59 Intake Total 2504 2154 Balance 2504 2154 Weight 94.3 kg 94 kg General appearance: PRESENT: no acute distress, well-developed, well-nourished Head exam: PRESENT: atraumatic, normocephalic Eye exam: PRESENT: conjunctiva pink, EOMI, PERRLA. ABSENT: scleral icterus Ear exam: PRESENT: normal external ear exam Mouth exam: PRESENT: moist, tongue midline Neck exam: ABSENT: carotid bruit, JVD, lymphadenopathy, thyromegaly Respiratory exam: PRESENT: clear to auscultation corrine. ABSENT: rales, rhonchi, wheezes Cardiovascular exam: PRESENT: RRR. ABSENT: diastolic murmur, rubs, systolic murmur Pulses: PRESENT: normal dorsalis pedis pul Vascular exam: PRESENT: normal capillary refill GI/Abdominal exam: PRESENT: normal bowel sounds, soft. ABSENT: distended, guarding, mass, organolmegaly, rebound, tenderness Rectal exam: PRESENT: deferred Extremities exam: PRESENT: full ROM. ABSENT: calf tenderness, clubbing, pedal edema Neurological exam: PRESENT: alert, awake, oriented to person, oriented to place, oriented to time, oriented to situation, CN II-XII grossly intact. ABSENT: motor sensory deficit Psychiatric exam: PRESENT: appropriate affect, normal mood. ABSENT: homicidal ideation, suicidal ideation Skin exam: PRESENT: dry, intact, warm. ABSENT: cyanosis, rash Results Laboratory Results: WBC 8.0 10^3/uL (4.0-10.5) 08/18/19 05:29 RBC 4.00 10^6/uL (4.35-5.55) L 08/18/19 05:29 Hgb 11.6 g/dL (13.5-17.0) L 08/18/19 05:29 Hct 33.8 % (37.9-51.0) L 08/18/19 05:29 MCV 85 fl (80-97) 08/18/19 05:29 MCH 29.0 pg (27.0-33.4) 08/18/19 05:29 MCHC 34.3 g/dL (32.0-36.0) 08/18/19 05:29 RDW 14.7 % (11.5-14.0) H 08/18/19 05:29 Plt Count 139 10^3/uL (150-450) L 08/18/19 05:29 Lymph % (Auto) Not Reportable 08/18/19 05:29 Spink % (Auto) Not Reportable 08/18/19 05:29 Eos % (Auto) Not Reportable 08/18/19 05:29 Baso % (Auto) Not Reportable 08/18/19 05:29 Absolute Neuts (auto) Not Reportable 08/18/19 05:29 Absolute Lymphs (auto) Not Reportable 08/18/19 05:29 Absolute Monos (auto) Not Reportable 08/18/19 05:29 Absolute Eos (auto) Not Reportable 08/18/19 05:29 Absolute Basos (auto) Not Reportable 08/18/19 05:29 Total Counted 100 08/18/19 05:29 Seg Neutrophils % Not Reportable 08/18/19 05:29 Seg Neuts % (Manual) 83 % (42-78) H 08/18/19 05:29 Band Neutrophils % 6 % (3-5) H 08/16/19 05:31 Lymphocytes % (Manual) 1 % (13-45) L 08/18/19 05:29 Monocytes % (Manual) 11 % (3-13) 08/18/19 05:29 Eosinophils % (Manual) 1 % (0-6) 08/18/19 05:29 Basophils % (Manual) 0 % (0-2) 08/18/19 05:29 Metamyelocytes % 1 % (0-1) 08/18/19 05:29 Myelocytes % 1 % (0) H 08/18/19 05:29 Promyelocytes % 2 % (0) H 08/18/19 05:29 Abs Neuts (Manual) 7.0 10^3/uL (1.7-8.2) 08/18/19 05:29 Abs Lymphs (Manual) 0.1 10^3/uL (0.5-4.7) L 08/18/19 05:29 Abs Monocytes (Manual) 0.9 10^3/uL (0.1-1.4) 08/18/19 05:29 Absolute Eos (Manual) 0.1 10^3/uL (0.0-0.6) 08/18/19 05:29 Abs Basophils (Manual) 0.0 10^3/uL (0.0-0.2) 08/18/19 05:29 Toxic Granulation SLIGHT 08/15/19 05:51 Platelet Comment DECREASED 08/18/19 05:29 Polychromasia SLIGHT 08/18/19 05:29 Poikilocytosis SLIGHT 08/15/19 05:51 Anisocytosis SLIGHT 08/18/19 05:29 Tear Drop Cells SLIGHT 08/18/19 05:29 Ovalocytes SLIGHT 08/18/19 05:29 Ashley Cells 1+ 08/16/19 05:31 PT 14.2 SEC (11.4-15.4) 08/13/19 17:57 INR 1.09 08/13/19 17:57 VBG pH 7.45 (7.30-7.42) H 08/13/19 19:43 VBG pCO2 33.6 mmHg (35-63) L 08/13/19 19:43 VBG HCO3 22.6 mmol/L (20-32) 08/13/19 19:43 VBG Base Excess -0.9 mmol/L 08/13/19 19:43 Sodium 135.8 mmol/L (137-145) L 08/18/19 05:29 Potassium 4.2 mmol/L (3.6-5.0) 08/18/19 05:29 Chloride 103 mmol/L (98-107) 08/18/19 05:29 Carbon Dioxide 25 mmol/L (22-30) 08/18/19 05:29 Anion Gap 8 (5-19) 08/18/19 05:29 BUN 22 mg/dL (7-20) H 08/18/19 05:29 Creatinine 1.09 mg/dL (0.52-1.25) 08/18/19 05:29 Est GFR ( Amer) > 60 (>60) 08/18/19 05:29 Est GFR (Non-Af Amer) Cancelled 08/17/19 08:57 Est GFR (MDRD) Non-Af > 60 (>60) 08/18/19 05:29 Glucose 173 mg/dL (75-110) H 08/18/19 05:29 POC Glucose 191 mg/dL (70-110) H 08/19/19 07:32 Hemoglobin A1c % 7.2 % (4.7-6.0) H 08/16/19 05:31 Lactic Acid 2.1 mmol/L (0.7-2.1) 08/14/19 01:41 Calcium 8.8 mg/dL (8.4-10.2) 08/18/19 05:29 Magnesium 2.1 mg/dL (1.6-2.3) 08/16/19 05:31 Total Bilirubin 0.8 mg/dL (0.2-1.3) 08/18/19 05:29 Direct Bilirubin 0.2 mg/dL (0.0-0.4) 08/18/19 05:29 Neonat Total Bilirubin Not Reportable 08/18/19 05:29 Neonat Direct Bilirubin Not Reportable 08/18/19 05:29 Neonat Indirect Bili Not Reportable 08/18/19 05:29 AST 29 U/L (17-59) 08/18/19 05:29 ALT 76 U/L (<50) H 08/18/19 05:29 Alkaline Phosphatase 145 U/L (38-126) H 08/18/19 05:29 Creatine Kinase 30 U/L (55-170) L 08/17/19 08:57 Total Protein 6.3 g/dL (6.3-8.2) 08/18/19 05:29 Albumin 3.2 g/dL (3.5-5.0) L 08/18/19 05:29 Triglycerides 253 mg/dL (<150) H 08/16/19 05:31 Cholesterol 116.95 mg/dL (0-200) 08/16/19 05:31 LDL Cholesterol Direct 57 mg/dL (<100) 08/16/19 05:31 VLDL Cholesterol 50.6 mg/dL (10-31) H 08/16/19 05:31 HDL Cholesterol 18 mg/dL (>40) L 08/16/19 05:31 Lipase 99.2 U/L (23-300) 08/16/19 05:31 EGFR Cancelled 08/17/19 08:57 Urine Color YELLOW 08/13/19 18:00 Urine Appearance CLEAR 08/13/19 18:00 Urine pH 5.0 (5.0-9.0) 08/13/19 18:00 Ur Specific Nancy 1.023 08/13/19 18:00 Urine Protein 30 mg/dL (NEGATIVE) H 08/13/19 18:00 Urine Glucose (UA) >=500 mg/dL (NEGATIVE) H 08/13/19 18:00 Urine Ketones TRACE mg/dL (NEGATIVE) H 08/13/19 18:00 Urine Blood SMALL (NEGATIVE) H 08/13/19 18:00 Urine Nitrite NEGATIVE (NEGATIVE) 08/13/19 18:00 Urine Bilirubin NEGATIVE (NEGATIVE) 08/13/19 18:00 Urine Urobilinogen 2.0 mg/dL (<2.0) H 08/13/19 18:00 Ur Leukocyte Esterase NEGATIVE (NEGATIVE) 08/13/19 18:00 Urine WBC (Auto) 1 /HPF 08/13/19 18:00 Urine RBC (Auto) 1 /HPF 08/13/19 18:00 Urine Mucus (Auto) RARE /LPF 08/13/19 18:00 Urine Ascorbic Acid NEGATIVE (NEGATIVE) 08/13/19 18:00 Time Trough Drawn 0857 08/17/19 08:57 Vancomycin Trough 10.4 ug/mL (5.0-20.0) 08/17/19 08:57 Hepatitis A IgM Ab Negative (Negative) 08/14/19 06:40 Hep Bs Antigen Negative (Negative) 08/14/19 06:40 Hep B Core IgM Ab Negative (Negative) 08/14/19 06:40 Hepatitis C Antibody 0.1 s/co ratio (0.0-0.9) 08/14/19 06:40 SARS-CoV-2 (PCR) NEGATIVE (NEGATIVE) 08/13/19 22:08 Slides for Path Review PATHOLOGIST REVIEWED 08/18/19 05:29 Impressions: Chest X-Ray 08/13/19 19:02 IMPRESSION: NO ACUTE RADIOGRAPHIC FINDING IN THE CHEST. Abdomen/Pelvis CT 08/13/19 21:29 IMPRESSION: Mild medical hepatic disease. Interval postsurgical change from resection of the mass lesion arising from the right kidney. The mass lesion arising from the left kidney is larger on current examination when compared to prior.. Abdomen Ultrasound 08/13/19 22:19 IMPRESSION: Limited examination demonstrating diffuse fatty infiltration of the liver. The gallbladder is contracted and not well seen. Hepatobiliary Scan Nuclear Medicine 08/13/19 23:44 IMPRESSION: Scintigraphic knee findings as detailed above are concerning for an acute cholecystitis. Abdomen MRI 08/15/19 00:00 IMPRESSION: 1. Cholelithiasis. Mild pericholecystic fluid and gallstones. Findings may represent cholecystitis. 2. No gross duct dilatation or obstruction. No regional stones are masses. 3. Suspicious for pancreatitis. Correlate with labs and presentation. No drainable collections. Venous Doppler Study 08/17/19 00:00 IMPRESSION: NO EVIDENCE DVT OR SVT IN EITHER LEG. Plan Time Spent: Greater than 30 Minutes - Follow-up with the surgery in a 1 week Follow in office 1 week we will repeat the CBC and Chem-12 Consider restart the Plavix and Lipitor Stroke Is this a Stroke Patient?: No Acute Heart Failure - Is this a Heart Failure Patient?: No
[2019-08-19 10:21] VITALS: BP 150/70
== END 2019-08-19 11:10 | disposition home health service (06) | DRG 854 ==
LOC: ER 17:46 → EH 23:49 → 3W 08-14 04:39
PROVIDERS: ADMIT Family Medicine; ATTEND Family Medicine
PROC: 0W9G30Z Drainage of Peritoneal Cavity with Drainage Device, Percutaneous Approach (ICD-10-PCS; 2019-08-15)
PROC: 0FT44ZZ Resection of Gallbladder, Percutaneous Endoscopic Approach (ICD-10-PCS; principal; 2019-08-15 15:30)
DX: A41.59 Other Gram-negative sepsis (principal); K80.00 Calculus of gallbladder with acute cholecystitis without obstruction; I13.0 Hypertensive heart and chronic kidney disease with heart failure and stage 1 through stage 4 chronic kidney disease, or unspecified chronic kidney disease; I50.32 Chronic diastolic (congestive) heart failure; N18.2 Chronic kidney disease, stage 2 (mild); E11.22 Type 2 diabetes mellitus with diabetic chronic kidney disease; E78.5 Hyperlipidemia, unspecified; Z20.828 Contact with and (suspected) exposure to other viral communicable diseases; K21.9 Gastro-esophageal reflux disease without esophagitis; K76.0 Fatty (change of) liver, not elsewhere classified; N28.89 Other specified disorders of kidney and ureter; E03.9 Hypothyroidism, unspecified; Z86.73 Personal history of transient ischemic attack (TIA), and cerebral infarction without residual deficits; Z79.82 Long term (current) use of aspirin; Z79.84 Long term (current) use of oral hypoglycemic drugs; Z79.899 Other long term (current) drug therapy; Z90.5 Acquired absence of kidney
CPT/HCPCS: 00790; 36415; 71045; 74176; 74181; 76705; 78226; 80048; 80053; 80061; 80074; 80076; 80202; 81001; 82550; 82803; 82962; 83036; 83605; 83690; 83735; 85025; 85610; 87040; 87070; 87077; 87086; 87150; 87186; 87635; 88304; 93005; 93010; 93970; 96361; 96374; 96375; 99285; A9537; C9113; C9803; J0330; J0692; J1100; J1650; J1815; J1885; J2270; J2405; J2704; J3010; J3370; J3490; J7030; J7060; J7120; Q9969